=== PATIENT | female | born 1965 | race Caucasian/White ===

== ENCOUNTER 2018-07-05 03:49 | Emergency (ER) | payer OTHER, SELFPAY ==
--- NOTE | 2018-07-05 03:55 | ED_ITS ---
HPI - General Adult General Chief complaint: Eye Problems Stated complaint: woke up with blurred vision in left eye Time Seen by Provider: 07/05/18 03:55 Source: patient Mode of arrival: ambulatory Limitations: no limitations History of Present Illness HPI narrative: Patient is an otherwise healthy 52-year-old female here for evaluation of blurry vision in her left eye. She states that she woke from sleep approximately 1 hour prior to arrival here in the emergency department when she noticed that her left eye was blurry. She just thought that it was blurry because she just woke up. This time we blurry vision did not change. She denied any other associated symptoms to include headache, pain in the eye, denies any trauma. No ringing in the ears. She states she waited approximately 20 minutes without any improvement. She called the nurse hotline and told her to come into the emergency department. She states that since she called the nursing department the symptoms have improved. She states that she now can see at distance without any changes in her vision. She states that the vision is now still blurry with close vision. Related Data Allergies Allergy/AdvReac Type Severity Reaction Status Date / Time Amoxicillin Allergy Unknown DENIES Uncoded 06/27/17 11:54 ALLERGY SULFA (sulfonamide) Allergy Unknown Uncoded 06/27/17 11:54 Review of Systems Constitutional Denies fatigue, Denies frequent falls and Denies headache(s) Eyes Reports blurry vision, Reports change in vision, Denies diplopia, Denies floaters, Denies irritation, Denies itchy eyes, Denies loss of vision, Denies eye pain, Denies seeing flashes, Denies photophobia and Denies tunnel vision ENT Ears, Nose, Mouth, and Throat: Denies vertigo, Denies dizziness, Denies headache(s), Denies disequilibrium, Denies tinnitus, Denies sore throat and Denies throat swelling Cardiovascular Denies chest pain and Denies dyspnea Respiratory Denies dyspnea Gastrointestinal Gastrointestinal: Denies abdominal pain Musculoskeletal Denies myalgias, Denies arthralgias, Denies numbness and Denies tingling Integumentary/Breasts Denies rash Neurologic Denies abnormal speech, Denies behavioral changes, Denies confusion, Denies vertigo, Denies dizziness, Denies frequent falls, Denies headache(s), Denies focal weakness, Denies loss of vision, Denies numbness, Denies tingling, Denies paresthesias and Denies disequilibrium Psychiatric Denies behavioral changes and Denies confusion Endocrine Denies fatigue Hematologic/Lymphatic Denies easy bleeding and Denies easy bruising Allergic/Immunologic Denies itchy eyes and Denies throat swelling [facility] Medical History Healthy adult (Acute) Social History Smoking Status: Never smoker Social History Smoking Status: Never smoker Exam Initial Vital Signs Initial Vital Signs: Vital Signs Temperature 97.9 F 07/05/18 03:57 Pulse Rate 108 H 07/05/18 03:57 Respiratory Rate 20 07/05/18 03:57 Blood Pressure 206/98 H 07/05/18 03:57 Pulse Oximetry 97 07/05/18 03:57 Const General: cooperative, comfortable, well developed, well groomed and No acute distress Orientation: alert, awake and oriented x3 HENMT Head: normal to inspection and normocephalic Ears: hearing grossly normal bilaterally Nose: external nose normal Face and sinus: normal facial exam Mouth: oral mucosae normal Eyes Alignment and Position: alignment normal Eyelids: eyelids normal Conjunctivae: conjunctivae normal Sclera: sclerae normal Pupils: PERRL EOM: EOM intact bilaterally Direct ophthalmoscopy: normal light reflex, photophobia present and photophobia not present Resp Effort & Inspection: normal respiratory effort Auscultation: clear to auscultation bilaterally Cardio Rate: regular rate Rhythm: regular rhythm Pulses: radial pulses present Skin Lesions: no lesions Rashes: no rashes Neuro General: alert, awake and oriented x3 Cranial Nerves: CN's II-XI intact bilaterally Cognition: normal cognition Speech: speech normal Gait: normal gait Extrem General: normal to inspection and capillary refill normal Psych Appearance: grossly normal and well kempt Course Orders Ordered: ED Orders 07/05/18 04:17 CT head/brain wo con Stat Vital Signs - 8 hr 07/05/18 03:57 Temperature 97.9 F Pulse Rate 108 H Respiratory Rate 20 Blood Pressure 206/98 H Pulse Oximetry 97 Medical Decision Making Imaging Data CT scan - head: Radiologist's impression: No acute intracranial abnormality. Right maxillary sinus disease. MDM Narrative Medical decision making narrative: Interocular pressure right eye 18 interocular pressure left eye 20. She reported that her symptoms were painless and not a vision loss, was not double vision was not a graying of the vision. She described the symptoms as blurring of objects that she was looking at. She has no other associated symptoms. Her symptoms are improving from the onset. Was otherwise normal neurologic exam. Head CT was negative. denies any trauma. no hyphema. No concerns for corneal abrasion. No concerns for keratitis. Not having headache. no signs of conjunctivitis. Will hold on further workup for now. Informed the patient that she should call [facility] later today when they open to schedule follow-up visit. She is given return precautions. Both her and her expressed understanding and agreement with plan. Discharge Plan Departure Patient Disposition: Home Clinical Impression: Blurred vision, left eye Activity Restrictions/Additional Instructions: I recommend that you contact the ophthalmology department here at [facility] at [phone] when they open later today. Also contact your primary care doctor for a follow-up. Return to the emergency department for any new or worsening symptoms Referrals: Rachid Delcid ARNP [Primary Care Provider] -
[2018-07-05 03:57] VITALS: BP 206/98; PULSE 108; RESP 20; TEMP 36.6; O2SAT 97; BMI 31.0
--- NOTE | 2018-07-05 04:17 | DI.CT.S_ITS ---
PROCEDURE: CT HEAD/BRAIN WO CON INDICATIONS: Blurry vision left eye TECHNIQUE: Noncontrast 4.5 mm thick angled axial sections acquired from the foramen magnum to the vertex, with coronal and sagittal reformats. For radiation dose reduction, the following was used: automated exposure control, adjustment of mA and/or kV according to patient size. COMPARISON: None. FINDINGS: Image quality: Excellent. CSF spaces: Basal cisterns are patent. No extra-axial fluid collections. The ventricles are symmetric in size and shape. Brain: No intracranial bleeds or masses. There is cerebral volume loss for age, with resultant ventricular and sulcal prominence. There are periventricular and deep white matter chronic small vessel ischemic changes. There is intracranial internal carotid artery atherosclerosis. Skull and face: Calvarium and visualized facial bones appear intact, without suspicious lesions. Sinuses: Mild mucosal thickening noted in the right maxillary sinus. The mastoids are clear. IMPRESSION: No acute intracranial disease process. Dictated by: Nery Funes MD, PhD on 07/05/2018 at 8:50 Approved by: Nery Funes MD, PhD on 07/05/2018 at 8:52
[2018-07-05 05:07] VITALS: BP 160/80; PULSE 84; RESP 18; O2SAT 97
== END 2018-07-05 05:07 | disposition home or self-care (01) ==
PROVIDERS: Emergency Provider Emergency Medicine; Family Provider Registered Nurse; PCP Registered Nurse
DX: H53.8 Other visual disturbances (principal)
CPT/HCPCS: 70450; 99283; 99284

== ENCOUNTER 2020-12-21 00:11 | Inpatient (IN) | payer OTHER, SELFPAY ==
[2020-12-21] VITALS (11 sets, daily range): BP systolic 151–188; BP diastolic 82–109; PULSE 92–115; RESP 16–18; TEMP 35.7–36.6; O2SAT 93–100; BMI 31.3
[2020-12-21] MEDS: ONDANSETRON 4 MG/2 ML INJ IV (00:41)
[2020-12-21 01:10] LABS: Add Manual Diff / Slide Review NO; Basophils Absolute Auto 0 /uL (0-100); Basophils Percent Auto 0.3 % (0-2); Eosinophils Absolute Auto 100 /uL (0-450); Eosinophils Percent Auto 0.8 % (2-4); Hematocrit 40.4 % (36-46); Hemoglobin 13.8 g/dL (12.0-16.0); Lymphocytes Absolute Auto 2400 /uL (1100-4500); Lymphocytes Percent Auto 17.3 % (25-40); Mean Corpuscular HGB Conc 34.2 % (30-36); Mean Corpuscular Hemoglobin 31.7 PG (26-34); Mean Corpuscular Volume 92.5 fL (80-100); Monocytes Absolute Auto 900 /uL (0-900); Monocytes Percent Auto 6.4 % (3-14); Neutrophils Absolute Auto 10300 /uL (1500-7000); Neutrophils Percent Auto 75.2 % (50-75); Platelet Count 396 X10^3/uL (150-400); Red Blood Cell Count 4.36 X10^6/uL (4.0-5.2); Red Cell Distribution Width 12.7 % (11.6-14.8); White Blood Cell Count 13.7 X10^3/uL (4.5-11.0)
[2020-12-21 01:10] LABS: Alanine Aminotransferase 23 IU/L (<35); Albumin 4.7 g/dL (3.5-5.0); Albumin Globulin Ratio 1.5 (1.0-2.8); Alkaline Phosphatase 92 U/L (38-126); Aspartate Aminotransferase 26 IU/L (14-36); BUN Creatinine Ratio 25.8 (6-22); Bilirubin Total 0.3 mg/dL (0.2-1.3); Blood Urea Nitrogen 16 mg/dL (7-17); Calcium 9.4 mg/dL (8.4-10.2); Carbon Dioxide 32 mmol/L (22-32); Chloride 100 mmol/L (98-107); Estimated Glomerular Filt Rate > 60.0 mL/min (>60); Globulin 3.2 g/dL (1.7-4.1); Glucose 119 mg/dL (70-100); HEMOLYSIS < 15 (0-50); Potassium 4.2 mmol/L (3.4-5.1); Sodium 141 mmol/L (137-145); Total Protein 7.9 g/dL (6.3-8.2)
[2020-12-21 01:12] LABS: Bacteria Urine None Seen; Culture Indicated Urine Cult Not Indicated; RBC Urine 0-1/HPF (0-5/HPF); WBC Urine None Seen (0-5/HPF)
[2020-12-21] MEDS: KETOROLAC 30 MG/ML VIAL 15 MG IV (01:13)
--- NOTE | 2020-12-21 01:18 | ED_ITS ---
HPI - Abdominal Pain General Chief Complaint: Abdominal Pain Stated Complaint: nausea,vomiting stomach pain Time Seen by Provider: 12/21/20 00:50 Source: patient and family Mode of arrival: Ambulatory Limitations: no limitations History of Present Illness HPI narrative: This is a 55-year-old female comes in with complaint of fairly sudden onset of epigastric pain and to both sides and around her back. Patient states it came on acutely this evening after eating. She had nausea and vomiting. Patient has not had any fevers. She denies any chest pain, no shortness of breath. She has not had any diarrhea constipation, no black bloody stools. No vaginal discharge or bleeding. No dysuria, urgency or frequency. She did recently start Wellbutrin and gabapentin for mood as well as sciatica. She has had some low back discomfort but not higher back. Patient states that she has had a hysterectomy. She denies any other intra-abdominal surgeries. She denies any other daily medications. She denies tobacco, occasional alcohol every couple months, no illicit other than oral CBD. She is allergic to amoxic illin and sulfa. She has not had similar symptoms in the past. Related Data Home Medications Medication Instructions Recorded Confirmed bupropion HCl 100 mg tablet,12 hr 100 mg PO DAILY 12/21/20 12/21/20 sustained-release Previous Rx's Medication Instructions Recorded hydrocodone 5 mg-acetaminophen 325 1 tab PO Q8H PRN #10 tab 12/14/20 mg tablet gabapentin 300 mg capsule 300 mg PO BID PRN #20 cap 12/17/20 methocarbamol 500 mg tablet 500 mg PO BID PRN #10 tab 12/17/20 Allergies Allergy/AdvReac Type Severity Reaction Status Date / Time amoxicillin AdvReac Intermediate Nausea Verified 12/21/20 00:31 Sulfa (Sulfonamide AdvReac Intermediate Nausea Verified 12/21/20 00:31 Antibiotics) Review of Systems Review of Systems ROS Unobtainable: All systems reviewed & are unremarkable except as noted in HPI and below Patient History Medical History (Updated 12/21/20 @ 01:42 by Jagruti Holloway DO) Healthy adult Social History Smoking Status: Never smoker Smoking Status: Never smoker alcohol intake frequency: 0-2 drinks per day Substance Use Type: does not use Exam Narrative Exam Narrative: GENERAL: Alert and oriented x three, female in moderate distress. HEENT: Head normocephalic, atraumatic, EOMI, pupils reactive, face symmetric, moist mucous membranes NECK: Supple, full range of motion CARDIOVASCULAR: Regular rate and rhythm without murmurs, rubs or gallops. RESPIRATORY: Breath sounds equal bilaterally, no wheezes rales or rhonchi. ABDOMEN: Soft, mild bilateral upper quadrant tenderness left greater than right greatest at epigastric region. Normoactive bowel sounds all 4 quadrants. No guarding or rebound, rigidity, no mass, nondistended. No bruit or pulsatile mass. : No CVA tenderness EXTREMITIES: Normal range of motion, no clubbing or edema. Neurovascularly intact NEUROLOGICAL: Cranial nerves II through XII grossly intact. Moving all extremities SKIN: Warm, dry, no petechiae, no rashes or lesions. Initial Vital Signs Initial Vital Signs: Vital Signs Temperature 97.9 F 12/21/20 00:15 Pulse Rate 94 H 12/21/20 00:15 Respiratory Rate 18 12/21/20 00:15 Blood Pressure 172/90 H 12/21/20 00:15 Pulse Oximetry 98 12/21/20 00:15 Course Orders Ordered: ED Orders 12/21/20 00:25 Complete Blood Count AUTO DIFF Stat 12/21/20 00:32 Urine Microscopic Stat 12/21/20 00:46 Comprehensive Metabolic Panel Stat Lipase Stat 12/21/20 01:29 CT abdomen pelvis w con Stat 12/21/20 02:35 COVID19 - ADMIT ([employer] swab/PCR) Stat Acetaminophen (Acetaminophen 325 Mg Tablet) 650 mg PO Q6HR PRN PRN Reason: Fever/Mild Pain (1-3) Enoxaparin Sodium (Enoxaparin 40 Mg/0.4 Ml Syringe) 40 mg SUBCUT DAILY TOM Hydromorphone HCl (Hydromorphone 0.5 Mg Inj) 0.5 mg IV Q6H PRN PRN Reason: Pain, Moderate (4-6) Sodium Chloride (Normal Saline 0.9%) 1,000 mls @ 200 mls/hr IV CONT TOM Sodium Chloride (Normal Saline 0.9%) 1,000 mls @ 250 mls/hr IV CONT TOM Ondansetron HCl (Ondansetron 4 Mg/2 Ml Inj) 4 mg IV Q8HR PRN PRN Reason: Nausea And Vomiting Oxycodone HCl (Oxycodone Ir 5 Mg Tablet) 5 mg PO Q6HR PRN PRN Reason: Pain, Moderate (4-6) Discontinued Medications Sodium Chloride (Normal Saline 0.9%) 1,000 mls @ 1,000 mls/hr IV BOLUS ONE Stop: 12/21/20 02:28 Last Infusion: 12/21/20 01:48 Dose: 1,000 mls/hr Documented by: Infusion: 12/21/20 01:34 Dose: 0 mls/hr Documented by: Admin: 12/21/20 01:34 Dose: 1,000 mls/hr Documented by: RADHA Ketorolac Tromethamine (Ketorolac 30 Mg/Ml Vial) 15 mg IV NOW ONE Stop: 12/21/20 01:01 Last Admin: 12/21/20 01:13 Dose: 15 mg Documented by: SAWYER Morphine Sulfate (Morphine 4 Mg/Ml Inj) 4 mg IV NOW ONE Stop: 12/21/20 01:48 Last Admin: 12/21/20 01:51 Dose: 4 mg Documented by: RADHA Ondansetron HCl (Ondansetron 4 Mg/2 Ml Inj) 4 mg IV NOW ONE Stop: 12/21/20 00:37 Last Admin: 12/21/20 00:41 Dose: 4 mg Documented by: RADHA Reevaluation(s) Reevaluation #1: Patient had miminal improvement after Toradol She felt much better after Morphine. All labs and imaging discussed. Consultations Consultation #1: Dr. Candelaria accepts for admission for pancreatitis, with no other acute CT findings and only elevated lipase. Covid swab is pending. Plan for fluids and pain control at this time. Dr. Candelaria did see the patient in the department. Time: 03:24 Vital Signs Vital signs: Vital Signs - 8 hr 12/21/20 00:15 12/21/20 02:33 Temperature 97.9 F Pulse Rate 94 H 92 H Respiratory Rate 18 18 Blood Pressure 172/90 H Pulse Oximetry 98 96 MDM - Abdominal Pain Lab Data Result diagrams: 12/21/20 00:25 12/21/20 00:46 Labs: Lab Results 10/05/21 10/05/21 10/05/21 Range/Units 00:25 00:32 00:46 WBC 13.7 H (4.5-11.0) X10^3/uL RBC 4.36 (4.0-5.2) X10^6/uL Hgb 13.8 (12.0-16.0) g/dL Hct 40.4 (36-46) % MCV 92.5 (80-100) fL MCH 31.7 (26-34) PG MCHC 34.2 (30-36) % RDW 12.7 (11.6-14.8) % Plt Count 396 (150-400) X10^3/uL Neut % (Auto) 75.2 H (50-75) % Lymph % (Auto) 17.3 L (25-40) % [place] % (Auto) 6.4 (3-14) % Eos % (Auto) 0.8 L (2-4) % Baso % (Auto) 0.3 (0-2) % Neut # (Auto) 26970 H (6397-6409) /uL Lymph # (Auto) 2400 (4769-8725) /uL [place] # (Auto) 900 (0-900) /uL Eos # (Auto) 100 (0-450) /uL Baso # (Auto) 0 (0-100) /uL Sodium 141 (137-145) mmol/L Potassium 4.2 (3.4-5.1) mmol/L Chloride 100 (98-107) mmol/L Carbon Dioxide 32 (22-32) mmol/L BUN 16 (7-17) mg/dL Creatinine 0.62 (0.52-1.04) mg/dL Estimated GFR > 60.0 (>60) mL/min BUN/Creatinine Ratio 25.8 H (6-22) Glucose 119 H (70-100) mg/dL Calcium 9.4 (8.4-10.2) mg/dL Total Bilirubin 0.3 (0.2-1.3) mg/dL AST 26 (14-36) IU/L ALT 23 (<35) IU/L Alkaline Phosphatase 92 (38-126) U/L Total Protein 7.9 (6.3-8.2) g/dL Albumin 4.7 (3.5-5.0) g/dL Globulin 3.2 (1.7-4.1) g/dL Albumin/Globulin Ratio 1.5 (1.0-2.8) Lipase 31491 H (23-300) U/L Urine RBC 0-1/hpf (0-5/HPF) Urine WBC None seen (0-5/HPF) Urine Bacteria None seen (None) Ur Culture Indicated? Cult not indicated SARS-CoV-2 (PCR) (Negative) 12/21/20 Range/Units 02:35 WBC (4.5-11.0) X10^3/uL RBC (4.0-5.2) X10^6/uL Hgb (12.0-16.0) g/dL Hct (36-46) % MCV (80-100) fL MCH (26-34) PG MCHC (30-36) % RDW (11.6-14.8) % Plt Count (150-400) X10^3/uL Neut % (Auto) (50-75) % Lymph % (Auto) (25-40) % [place] % (Auto) (3-14) % Eos % (Auto) (2-4) % Baso % (Auto) (0-2) % Neut # (Auto) (2065-3513) /uL Lymph # (Auto) (9764-1394) /uL [place] # (Auto) (0-900) /uL Eos # (Auto) (0-450) /uL Baso # (Auto) (0-100) /uL Sodium (137-145) mmol/L Potassium (3.4-5.1) mmol/L Chloride (98-107) mmol/L Carbon Dioxide (22-32) mmol/L BUN (7-17) mg/dL Creatinine (0.52-1.04) mg/dL Estimated GFR (>60) mL/min BUN/Creatinine Ratio (6-22) Glucose (70-100) mg/dL Calcium (8.4-10.2) mg/dL Total Bilirubin (0.2-1.3) mg/dL AST (14-36) IU/L ALT (<35) IU/L Alkaline Phosphatase (38-126) U/L Total Protein (6.3-8.2) g/dL Albumin (3.5-5.0) g/dL Globulin (1.7-4.1) g/dL Albumin/Globulin Ratio (1.0-2.8) Lipase (23-300) U/L Urine RBC (0-5/HPF) Urine WBC (0-5/HPF) Urine Bacteria (None) Ur Culture Indicated? SARS-CoV-2 (PCR) Negative (Negative) Point of care testing: Urine Dip Bedside Urine Glucose Negative Bedside Urine Bilirubin - Negative Bedside Urine Ketone - Negative Urine Specific [place] 1.020 Bedside Urine Occult Blood +/- Bedside Urine pH 6.0 Bedside Urine Protein +/- 15 Bedside Urine Urobilinogen - Negative Bedside Urine Nitrite - Negative Bedside Urine Leukocytes - Negative Esterase Imaging Data CT scan - abdomen/pelvis: Radiologist's Impression: [address] [address] [address] Scan Report Signed Patient: Gracie Hawthorne MR#: [id number] : 1965 Acct:[id number] Age/Sex: 55 / F Date of Service: 12/21/20 Loc: ED Accession Number: [id number] ?? Procedure: CT abdomen pelvis w con Ordering Provider: Jagruti Holloway D.O. PROCEDURE:? CT ABDOMEN PELVIS W CON ? INDICATIONS:? epigastric pain radiates to back ? TECHNIQUE:? After the administration of IV contrast, axial sections were acquired from the lung bases to the pubic symphysis.? Coronal and sagittal reformats were performed.? For radiation dose reduction, the following was used:? automated exposure control, adjustment of mA and/or kV according to patient size. ? COMPARISON:? None. ? FINDINGS:? Image quality:? Excellent.? ? Lung bases:? Unremarkable.? ? Heart:? No significant findings. ? ? ABDOMEN: Liver:? Unremarkable.? ? Gallbladder:? No calcified gallstones.? Not distended.? ? Biliary ducts:? Not distended. Pancreas:? There is inflammatory change in free fluid surrounding the pancreas.? No pancreatic necrosis is identified.? No loculated fluid collection at this time.? No pancreatic ductal dilatation seen. Spleen:? No splenomegaly.? ? Adrenal Glands:? Unremarkable.? ? Kidneys and Ureters:? No hydronephrosis.? Tiny cortical hypodensities.? ? ? Stomach and Bowel:? Stomach, small bowel loops, and colon are unremarkable.? Tiny duodenal diverticulum.? Normal appendix. Peritoneum:? No abnormal intraperitoneal fluid.? No free air.? ? Ventral Wall: ? No hernia.? Abdominal Nodes:? No retroperitoneal or mesenteric adenopathy by size criteria.? Vessels:? Aorta and inferior vena cava are normal in size.? Mild calcified plaque.? No filling defect in the portal vein SMV.? ? PELVIS: Pelvic Organs:? Small ovarian cysts bilaterally.? Uterus is absent or severely atrophic.? ? Bladder:? Unremarkable.? ? Pelvic Nodes: No enlarged lymph nodes.? Miscellaneous: No inguinal hernias are seen. ? ? ? Bones:? Moderate DDD at L5-S1. ? ? IMPRESSION:? 1. Inflammatory change and mild amount of free fluid surrounding the pancreas.? This is most consistent with interstitial edematous pancreatitis, moderate severity.? No pancreatic necrosis identified at this time.? -Recommend follow-up CT pancreas in a few weeks. ? 2. No calcified gallstones. ? 3. No small bowel obstruction. ? 4. Small bilateral ovarian cysts.? Dictated by: Xavier Alonzo M.D. on 12/21/2020 at 1:46 ? ? Approved by: Xavier Alnozo M.D. on 12/21/2020 at 1:54?? MDM Narrative Medical decision making narrative: This is a 55-year-old female who comes to the emergency department with fairly sudden onset of nausea vomiting epigastric pain radiating towards her back. The patient labs show lipase in the 52,000 range. Patient drinks minimal alcohol according her and her . No other known exacerbating factors. Patient's CT does not show any obvious biliary ductal dilation or changes beyond edematous pancreatitis. She is much improved after some Zofran, fluids and pain medication. Spoke with her hospitalist who accepts for admission Discharge Plan Departure Patient Disposition: Admitted As Inpatient Clinical Impression: Acute pancreatitis Admit Date/Time: 12/21/20 03:29 Admit Provider: Ravindra Candelaria
--- NOTE | 2020-12-21 01:29 | DI.CT.S_ITS ---
PROCEDURE: CT ABDOMEN PELVIS W CON INDICATIONS: epigastric pain radiates to back TECHNIQUE: After the administration of IV contrast, axial sections were acquired from the lung bases to the pubic symphysis. Coronal and sagittal reformats were performed. For radiation dose reduction, the following was used: automated exposure control, adjustment of mA and/or kV according to patient size. COMPARISON: None. FINDINGS: Image quality: Excellent. Lung bases: Unremarkable. Heart: No significant findings. ABDOMEN: Liver: Unremarkable. Gallbladder: No calcified gallstones. Not distended. Biliary ducts: Not distended. Pancreas: There is inflammatory change in free fluid surrounding the pancreas. No pancreatic necrosis is identified. No loculated fluid collection at this time. No pancreatic ductal dilatation seen. Spleen: No splenomegaly. Adrenal Glands: Unremarkable. Kidneys and Ureters: No hydronephrosis. Tiny cortical hypodensities. Stomach and Bowel: Stomach, small bowel loops, and colon are unremarkable. Tiny duodenal diverticulum. Normal appendix. Peritoneum: No abnormal intraperitoneal fluid. No free air. Ventral Wall: No hernia. Abdominal Nodes: No retroperitoneal or mesenteric adenopathy by size criteria. Vessels: Aorta and inferior vena cava are normal in size. Mild calcified plaque. No filling defect in the portal vein SMV. PELVIS: Pelvic Organs: Small ovarian cysts bilaterally. Uterus is absent or severely atrophic. Bladder: Unremarkable. Pelvic Nodes: No enlarged lymph nodes. Miscellaneous: No inguinal hernias are seen. Bones: Moderate DDD at L5-S1. IMPRESSION: 1. Inflammatory change and mild amount of free fluid surrounding the pancreas. This is most consistent with interstitial edematous pancreatitis, moderate severity. No pancreatic necrosis identified at this time. -Recommend follow-up CT pancreas in a few weeks. 2. No calcified gallstones. 3. No small bowel obstruction. 4. Small bilateral ovarian cysts. Dictated by: Xavier Alonzo M.D. on 12/21/2020 at 1:46 Approved by: Xavier Alonzo M.D. on 12/21/2020 at 1:54
[2020-12-21] MEDS: SODIUM CHLORIDE 0.9% 1,000 ML 1000 ML IV (01:34)
[2020-12-21 01:35] LABS: Lipase 52166 U/L (23-300)
[2020-12-21] MEDS: MORPHINE 4 MG/ML INJ IV (01:51)
[2020-12-21 03:50] LABS: COVID19 - ADMIT (NP swab/PCR) Negative (Negative)
--- NOTE | 2020-12-21 04:11 | PM.HP.1 ---
History of Present Illness History of Present Illness Date Patient Seen: 12/21/20 Time Patient Seen: 04:00 Chief complaint: nausea,vomiting stomach pain Narrative: Ms. Hawthorne is a 55W with PMH anxiety and back pain who comes in with abdominal pain. She says she had been in her normal state of health until tonight around 10pm. She had pain that started this evening after eating. She had nausea and vomiting. She did not have diarrhea. Her pain was epigastric and radiated to her back. She had no dysuria, no chest pain, no shortness of breath. She does not drink alcohol more than once every few months. She has had back pain recently and has tried CBD orally, bupropion, gabapentin, prednisone, methocarbamol. She has taken tylenol and nsaids more regularly due to her back pain. She takes vitamins. She has had a hysterectomy, still has her gallbladder. She has had high cholesterol in the past but has not had it checked recently. She has not had trauma to her abdomen. In the ED workup was done, she was noted to be afebrile, heart rate in the 90s, blood pressure elevated. Labs notable for WBC 13.7, hgb 13.8, creatinine 0.62, lipase 28545. LFTs ok. Urinalysis no evidence of infection. CT abdomen showed inflammatory changes and free fluid around the pancreas. She was given pain medications and IV fluids and admitted for further treatment. Family history: patient does not know, is adopted Patient History Medical History Healthy adult Family & Social History Safety & Behavioral: Feels Safe in Current Yes Environment Tobacco & Substance use: Smoking Status Never smoker alcohol intake frequency 0-2 drinks per day Substance Use Type does not use Meds Home Medications and Allergies Home Medications Medication Instructions Recorded Confirmed Type hydrocodone 5 mg-acetaminophen 325 1 tab PO Q8H PRN #10 tab 12/14/20 12/21/20 Rx mg tablet gabapentin 300 mg capsule 300 mg PO BID PRN #20 cap 12/17/20 12/21/20 Rx methocarbamol 500 mg tablet 500 mg PO BID PRN #10 tab 12/17/20 12/21/20 Rx bupropion HCl 100 mg tablet,12 hr 100 mg PO DAILY 12/21/20 12/21/20 History sustained-release Allergies Allergy/AdvReac Type Severity Reaction Status Date / Time amoxicillin AdvReac Intermediate Nausea Verified 12/21/20 00:31 Sulfa (Sulfonamide AdvReac Intermediate Nausea Verified 12/21/20 00:31 Antibiotics) Review of Systems Review of Systems Narrative: 14 systems reviewed and negative aside from what is noted in HPI Exam Vital Signs (past 8 hours): - 12/21/20 00:15 12/21/20 02:33 12/21/20 04:10 Temperature 97.9 F Pulse Rate 94 H 92 H 94 H Respiratory Rate 18 18 Blood Pressure 172/90 H 188/100 H Pulse Oximetry 98 96 98 Oxygen Delivery Method Room Air Narrative Exam Narrative: GEN: no acute distress HEENT: moist mucous membranes, PERRL NECK: trachea midline, no JVD CV: regular rate and rhythm with no murmurs PULM: clear bilaterally, no wheezes, rhonchi, rales ABD: soft, tender epigastric, no rebound/guarding, normal bowel sounds, no organomegaly EXT: warm and well perfused, with no edema NEURO: awake alert oriented, no focal deficits PSYCH: pleasant, cooperative Objective Labs Result Diagrams: 12/21/20 00:25 12/21/20 00:46 Labs: Laboratory Results - last 24 hr 12/21/20 12/21/20 12/21/20 00:25 00:32 00:46 WBC 13.7 H RBC 4.36 Hgb 13.8 Hct 40.4 MCV 92.5 MCH 31.7 MCHC 34.2 RDW 12.7 Plt Count 396 Neut % (Auto) 75.2 H Lymph % (Auto) 17.3 L [place] % (Auto) 6.4 Eos % (Auto) 0.8 L Baso % (Auto) 0.3 Neut # (Auto) 15622 H Lymph # (Auto) 2400 [place] # (Auto) 900 Eos # (Auto) 100 Baso # (Auto) 0 Sodium 141 Potassium 4.2 Chloride 100 Carbon Dioxide 32 BUN 16 Creatinine 0.62 Estimated GFR > 60.0 BUN/Creatinine Ratio 25.8 H Glucose 119 H Calcium 9.4 Total Bilirubin 0.3 AST 26 ALT 23 Alkaline Phosphatase 92 Total Protein 7.9 Albumin 4.7 Globulin 3.2 Albumin/Globulin Ratio 1.5 Lipase 99882 H Urine RBC 0-1/hpf Urine WBC None seen Urine Bacteria None seen Ur Culture Indicated? Cult not indicated SARS-CoV-2 (PCR) 12/21/20 02:35 WBC RBC Hgb Hct MCV MCH MCHC RDW Plt Count Neut % (Auto) Lymph % (Auto) [place] % (Auto) Eos % (Auto) Baso % (Auto) Neut # (Auto) Lymph # (Auto) [place] # (Auto) Eos # (Auto) Baso # (Auto) Sodium Potassium Chloride Carbon Dioxide BUN Creatinine Estimated GFR BUN/Creatinine Ratio Glucose Calcium Total Bilirubin AST ALT Alkaline Phosphatase Total Protein Albumin Globulin Albumin/Globulin Ratio Lipase Urine RBC Urine WBC Urine Bacteria Ur Culture Indicated? SARS-CoV-2 (PCR) Negative Assessment & Plan Assessment & Plan narrative: Ms. Hawthorne is a 55W who presents with acute epigastric pain found to have acute pancreatitis. 1. Acute pancreatitis -lipase on admission 52,666 -CT abdomen shows inflammatory changes around pancreas -electrolytes normal, normal renal function -continue IV fluids at 250cc/hr -repeat electrolytes in AM -etiology unclear - no evidence of gallstones, no significant EtOH, possibly a medication affect but none of her medications are common cause of pancreatitis, check triglycerides -keep NPO for now and plan to advance to clears in AM CODE: Full Proxy: Spouse, Gigi Hawthorne DVT ppx: Lovenox 40u sc Dispo: patient is likely to be here greater than 2 midnights given severity of pain with acute pancreatitis I have utilized all available immediate resources to obtain, update, or review the patient's current medications. Time Spent With Patient Critical Care time: I spent a total of [] minutes of critical care time on this patient's care today; this time is exclusive of procedural time. Quality MIPS - Admit I confirm the patient?s Advance Care Plan is present, Code status is documented, Surrogate decision maker is in patient?s record [If Yes, STOP here]: Yes
[2020-12-21] MEDS: SODIUM CHLORIDE 0.9% 1,000 ML 250 ML IV ×2 (04:34→08:10)
[2020-12-21] MEDS: OXYCODONE IR 5 MG TABLET PO ×5 (04:36→23:14)
--- NOTE | 2020-12-21 08:44 | DI.US.S_ITS ---
PROCEDURE: US ABDOMEN LIMITED INDICATIONS: PANCREATITIS TECHNIQUE: Real-time scanning was performed of the right upper quadrant abdominal structures, image documentation. COMPARISON: [facility], CT, CT ABDOMEN PELVIS W CON, 12/21/2020, 1:36. FINDINGS: Liver: Normal size and appearance of the liver. Gallbladder: Normally distended gallbladder without wall thickening or pericholecystic fluid. The tilting saw operator reports a negative sonographic Benson's sign. There is a mobile gallstone measuring approximately 1.5 centimeters. Biliary ducts: No intrahepatic or extrahepatic biliary ductal dilatation. No shadowing gallstone within the biliary ducts is identified. Spleen: Spleen is normal in size and homogeneous in echotexture. Pancreas: There is free fluid adjacent to the pancreas as seen on recent CT. No pancreatic ductal dilatation. Much of the pancreas is not well evaluated due to obscuration by overlying bowel gas. IMPRESSION: Findings of pancreatitis is seen on recent CT. Cholelithiasis without findings of cholecystitis. Dictated by: Migue Ceron M.D. on 12/21/2020 at 11:14 Approved by: Migue Ceron M.D. on 12/21/2020 at 11:16
[2020-12-21] MEDS: ENOXAPARIN 40 MG/0.4 ML SYRINGE SUBCUT (10:30)
[2020-12-21 11:57] LABS: Magnesium 2.1 mg/dL (1.6-2.3); Triglycerides 242 mg/dL (35-150)
[2020-12-21] MEDS: SODIUM CHLORIDE 0.9% 1,000 ML 200 ML IV (12:29)
--- NOTE | 2020-12-21 13:02 | CM.DANOTE ---
DCP: Case received, EMR reviewed and met with patient. Introduced self and role. Was able to obtain information from patient regarding her baseline activity status prior to hospitalization. DCP assessment completed with information currently available. Patient is a 55 year old female who admitted early this morning to the care of the hospitalist team. PCP: She is unsure of her name. Payer: confirmed: [facility]. Patient came to the hospital via private vehicle secondary to having epigastric pain, as well as nausea and vomiting. Patient was diagnosed with acute pancreatitis. Paient drinks minimal alcohol. Met with patient in her room. She is alert and oriented, pleasant. She resides here in [place] with her spouse, Gigi. She has 4 grown children, the youngest is 19. She is independent at her baseline. P: DCP to continue to follow. Patient should be able to go home when she is deemed medically stable. Ana Laura Brody RN/Machine Maintenance Servicer Discharge Planning/Care Management Advanced directive, confirm from FAMILY Start: 12/21/20 04:58 Freq: Q24H Status: Complete Protocol: Document 12/21/20 04:58 CM (Rec: 12/21/20 04:58 CM [id number]) Advance Directive, confirm on record Time 04:58 Person contacted Pt Copy received No Copy received No Advanced directive available on record No CM Discharge Assessment Start: 12/21/20 12:36 Freq: Status: Active Protocol: Document 12/21/20 12:38 VM (Rec: 12/21/20 12:48 VM [id number]) Discharge Planning Assessment Assigned Mechanical Engineer Ana Laura Brody RN/Machine Maintenance Servicer Advance Directives? No Advance Directives on File No History Provided By Patient,Medical Record Prior Living Arrangements House Household Members spouse Type of transporation used prior to Drives own vehicle admit Independent with ADL's Yes Is patient alert and oriented? Yes Caregiver for Another No Barriers to Discharge No Discharge Plan Home Transportation Arrangement Spouse Referrals Initiated None needed Whiteboard Updated in Patient Room with Yes name and ext. # of Mechanical Engineer Review Status In Process Next Review Type Continued Stay Review
--- NOTE | 2020-12-21 13:16 | PC.NURSE ---
Pt is A and O x 4, VSS. Rates pain 7/10 gets adequate relief from 5 mg oxycodone. Tolerating clear liquid diet. LS clear, HRR. BM yesterday.
[2020-12-21] MEDS: buPROPion SR 100 MG TAB PO (15:28)
[2020-12-21] MEDS: GABAPENTIN 300 MG CAPSULE PO ×2 (15:28→20:27)
--- NOTE | 2020-12-21 16:08 | PM.PN.1 ---
Subjective Subjective Date Patient Seen: 12/21/20 Interval history: Patient is 55-year-old female admitted with acute pancreatitis. She reports moderate abdominal pain adequately controlled. Poor appetite but interested in trying clears. Blood pressure has been persistently quite elevated. She is also having some exacerbation chronic sciatica pain in the left leg. Exam Vital Signs (past 8 hours): - 12/21/20 09:00 12/21/20 11:00 12/21/20 15:21 Temperature 97.4 F L 97.3 F L 96.3 F L Pulse Rate 104 H 100 H 107 H Respiratory Rate 18 18 16 Blood Pressure 157/96 H 163/104 H 178/107 H Pulse Oximetry 97 97 93 Oxygen Delivery Method Room Air Oxygen Flow Rate 0 Narrative Exam Narrative: General: Alert and cooperative appearing comfortable Lungs: Clear to auscultation Heart: Regular rhythm Abdomen: Tender in epigastric Extremities: No edema Objective Labs Result Diagrams: 12/21/20 00:25 12/21/20 00:46 Labs: Laboratory Results - last 24 hr 12/21/20 12/21/20 12/21/20 00:25 00:32 00:46 WBC 13.7 H RBC 4.36 Hgb 13.8 Hct 40.4 MCV 92.5 MCH 31.7 MCHC 34.2 RDW 12.7 Plt Count 396 Neut % (Auto) 75.2 H Lymph % (Auto) 17.3 L [place] % (Auto) 6.4 Eos % (Auto) 0.8 L Baso % (Auto) 0.3 Neut # (Auto) 06958 H Lymph # (Auto) 2400 [place] # (Auto) 900 Eos # (Auto) 100 Baso # (Auto) 0 Sodium 141 Potassium 4.2 Chloride 100 Carbon Dioxide 32 BUN 16 Creatinine 0.62 Estimated GFR > 60.0 BUN/Creatinine Ratio 25.8 H Glucose 119 H Calcium 9.4 Magnesium Total Bilirubin 0.3 AST 26 ALT 23 Alkaline Phosphatase 92 Total Protein 7.9 Albumin 4.7 Globulin 3.2 Albumin/Globulin Ratio 1.5 Triglycerides Lipase 95309 H Urine RBC 0-1/hpf Urine WBC None seen Urine Bacteria None seen Ur Culture Indicated? Cult not indicated SARS-CoV-2 (PCR) 12/21/20 12/21/20 00:46 02:35 WBC RBC Hgb Hct MCV MCH MCHC RDW Plt Count Neut % (Auto) Lymph % (Auto) [place] % (Auto) Eos % (Auto) Baso % (Auto) Neut # (Auto) Lymph # (Auto) [place] # (Auto) Eos # (Auto) Baso # (Auto) Sodium Potassium Chloride Carbon Dioxide BUN Creatinine Estimated GFR BUN/Creatinine Ratio Glucose Calcium Magnesium 2.1 Total Bilirubin AST ALT Alkaline Phosphatase Total Protein Albumin Globulin Albumin/Globulin Ratio Triglycerides 242 H Lipase Urine RBC Urine WBC Urine Bacteria Ur Culture Indicated? SARS-CoV-2 (PCR) Negative [facility] Medical History Healthy adult Social History household members: spouse Smoking Status: Never smoker Assessment & Plan Assessment & Plan narrative: 1. Acute pancreatitis, unclear etiology -patient does not use alcohol -lipase on admission 52,666, WBC 13.7, renal function normal, triglycerides minimally high -CT abdomen shows inflammatory changes around pancreas -US shows 1.5 cm stone in gallbladder but otherwise normal -continue IV fluids, pain management -clear liquid diet as tolerated -discuss with surgery regarding possibility of gallstone causing pancreatitis 2. Hypertension -persistently elevated blood pressures at least moderately elevated -start losartan 50 mg q.d. -check TSH 3. Sciatica left leg, chronic -restarted patient's gabapentin and methocarbamol 4. History of depression -restarted patient's bupropion Time Spent With Patient Critical Care time: I spent a total of [] minutes of critical care time on this patient's care today; this time is exclusive of procedural time. Quality VTE Deep Vein Thrombosis/Pulmonary Embolism Present on Admission: No
[2020-12-21] MEDS: LOSARTAN 50 MG TABLET PO (17:22)
[2020-12-21] MEDS: SODIUM CHLORIDE 0.9% 1,000 ML 150 ML IV (17:26)
--- NOTE | 2020-12-21 20:47 | PM.CN ---
History of Present Illness Consult details Chief complaint: nausea,vomiting stomach pain Reason for consult: Pancreatitis Narrative: The patient is a woman who developed severe mid abdominal pain and vomiting yesterday evening. Pain radiated into her back. She has never had pain like this before. Pain was sharp as well as a dull component. She is feeling somewhat better with pain medication but when it subsides her pain does return. No black or bloody bowel movements. No hematemesis. No history of jaundice. Meds Home Medications and Allergies Home Medications Medication Instructions Recorded Confirmed Type hydrocodone 5 mg-acetaminophen 325 1 tab PO Q8H PRN #10 tab 12/14/20 12/21/20 Rx mg tablet gabapentin 300 mg capsule 300 mg PO BID PRN #20 cap 12/17/20 12/21/20 Rx methocarbamol 500 mg tablet 500 mg PO BID PRN #10 tab 12/17/20 12/21/20 Rx bupropion HCl 100 mg tablet,12 hr 100 mg PO DAILY 12/21/20 12/21/20 History sustained-release Allergies Allergy/AdvReac Type Severity Reaction Status Date / Time amoxicillin AdvReac Intermediate Diarrhea Verified 12/21/20 14:38 Sulfa (Sulfonamide AdvReac Intermediate Nausea Verified 12/21/20 00:31 Antibiotics) Review of Systems Review of Systems Narrative: Patient denies visual difficulties double vision. No cough cold or asthma. No difficulty swallowing. No tooth aches or earaches. No cough cold or asthma. She has had 1 of the 2 necessary vaccinations for COVID. She received a Pfizer vaccination and was due to have a repeat today. Patient denies black or bloody bowel movements. No dysuria or hematuria. No seizures or blackouts. No anxiety but she was recently started on medication for depression. No breast masses. No discharge from her breasts. She has not had a colonoscopy. Exam Vital Signs (past 8 hours): - 12/21/20 15:21 12/21/20 17:22 12/21/20 19:23 Temperature 96.3 F L 96.3 F L Pulse Rate 107 H 107 H 115 H Respiratory Rate 16 18 Blood Pressure 178/107 H 159/97 H 176/109 H Pulse Oximetry 93 100 Oxygen Delivery Method Room Air Oxygen Flow Rate 0 Narrative Exam Narrative: Cooperative pleasant woman in no apparent distress. She is moving about with ease. Eyes are nonicteric. Lungs are clear to auscultation no rales or rhonchi. Heart regular rate and rhythm without murmur gallop. Lungs percuss equally. No bruit in the neck. Abdomen is protuberant soft. She has tenderness across her upper abdomen mostly in the mid abdomen. She is a bit overweight so it is hard to tell that there may be a sense of fullness in the region. She is alert and oriented. Speech rate and content are appropriate. Affect is appropriate. Objective Imaging CT scan - abdomen: My impression: Fairly significant edema enlargement of the pancreas. Appears to be perfused. No visible gallstones. No thickening the gallbladder wall. US - abdomen: My impression: Ultrasound shows floating gallstones. No thickening of the wall. Common bile duct is 6.6 mm. Labs Result Diagrams: 12/21/20 00:25 12/21/20 00:46 Labs: Laboratory Results - last 24 hr 12/21/20 12/21/20 12/21/20 00:25 00:32 00:46 WBC 13.7 H RBC 4.36 Hgb 13.8 Hct 40.4 MCV 92.5 MCH 31.7 MCHC 34.2 RDW 12.7 Plt Count 396 Neut % (Auto) 75.2 H Lymph % (Auto) 17.3 L [place] % (Auto) 6.4 Eos % (Auto) 0.8 L Baso % (Auto) 0.3 Neut # (Auto) 03243 H Lymph # (Auto) 2400 [place] # (Auto) 900 Eos # (Auto) 100 Baso # (Auto) 0 Sodium 141 Potassium 4.2 Chloride 100 Carbon Dioxide 32 BUN 16 Creatinine 0.62 Estimated GFR > 60.0 BUN/Creatinine Ratio 25.8 H Glucose 119 H Calcium 9.4 Magnesium Total Bilirubin 0.3 AST 26 ALT 23 Alkaline Phosphatase 92 Total Protein 7.9 Albumin 4.7 Globulin 3.2 Albumin/Globulin Ratio 1.5 Triglycerides Lipase 20246 H Urine RBC 0-1/hpf Urine WBC None seen Urine Bacteria None seen Ur Culture Indicated? Cult not indicated SARS-CoV-2 (PCR) 12/21/20 12/21/20 00:46 02:35 WBC RBC Hgb Hct MCV MCH MCHC RDW Plt Count Neut % (Auto) Lymph % (Auto) [place] % (Auto) Eos % (Auto) Baso % (Auto) Neut # (Auto) Lymph # (Auto) [place] # (Auto) Eos # (Auto) Baso # (Auto) Sodium Potassium Chloride Carbon Dioxide BUN Creatinine Estimated GFR BUN/Creatinine Ratio Glucose Calcium Magnesium 2.1 Total Bilirubin AST ALT Alkaline Phosphatase Total Protein Albumin Globulin Albumin/Globulin Ratio Triglycerides 242 H Lipase Urine RBC Urine WBC Urine Bacteria Ur Culture Indicated? SARS-CoV-2 (PCR) Negative [facility] Medical History (Updated 12/21/20 @ 20:56 by Sharath Peralta MD) Healthy adult Surgical History (Updated 12/21/20 @ 20:51 by Sharath Peralta MD) History of hysterectomy Social History household members: spouse Tobacco & Substance Use Smoking Status: Never smoker Assessment & Plan Assessment and plan (1) Acute pancreatitis: Status: Acute (2) Cholelithiasis: Status: Acute Assessment & Plan narrative: Patient has physical exam and history and CT findings all consistent with acute pancreatitis. Her lipase is over 50,000. She has 2 potential causes of pancreatitis in her history. These are biliary in nature and elevated triglycerides. I suspect that most likely she passed the stone her gallbladder the caused her pancreatitis. Her CT scan is remarkable as is her lipase elevation. Clinically she has shown some improvement but it is far from steadily resolving. I would recommend continued fluids and when she is much improved would consider laparoscopic cholecystectomy prior to discharge. Things that might prevent that is if she had a decline in her condition or developed a large pseudocyst. Will continue to follow with you. Time Spent With Patient Critical Care time: I spent a total of [] minutes of critical care time on this patient's care today; this time is exclusive of procedural time.
[2020-12-21] MEDS: HYDROMORPHONE 0.5 MG INJ IV (20:57)
[2020-12-21] MEDS: METOPROLOL TARTRATE 5 MG/5 ML INJ IV (21:38)
[2020-12-22] MEDS: SODIUM CHLORIDE 0.9% 1,000 ML 150 ML IV ×2 (01:04→07:42)
[2020-12-22] MEDS: OXYCODONE IR 5 MG TABLET PO ×4 (03:33→19:22)
[2020-12-22 05:25] LABS: Add Manual Diff / Slide Review NO; Alanine Aminotransferase 16 IU/L (<35); Albumin 3.9 g/dL (3.5-5.0); Albumin Globulin Ratio 1.6 (1.0-2.8); Alkaline Phosphatase 65 U/L (38-126); Aspartate Aminotransferase 20 IU/L (14-36); BUN Creatinine Ratio 17.2 (6-22); Basophils Absolute Auto 0 /uL (0-100); Basophils Percent Auto 0.2 % (0-2); Bilirubin Total 0.4 mg/dL (0.2-1.3); Blood Urea Nitrogen 10 mg/dL (7-17); Calcium 8.7 mg/dL (8.4-10.2); Carbon Dioxide 30 mmol/L (22-32); Chloride 104 mmol/L (98-107); Eosinophils Absolute Auto 100 /uL (0-450); Eosinophils Percent Auto 0.7 % (2-4); Estimated Glomerular Filt Rate > 60.0 mL/min (>60); Globulin 2.4 g/dL (1.7-4.1); Glucose 112 mg/dL (70-100); HEMOLYSIS < 15 (0-50); Hematocrit 31.4 % (36-46); Hemoglobin 10.7 g/dL (12.0-16.0); Lymphocytes Absolute Auto 1100 /uL (1100-4500); Lymphocytes Percent Auto 15.5 % (25-40); Mean Corpuscular HGB Conc 34.2 % (30-36); Mean Corpuscular Hemoglobin 31.9 PG (26-34); Mean Corpuscular Volume 93.3 fL (80-100); Monocytes Absolute Auto 500 /uL (0-900); Monocytes Percent Auto 6.9 % (3-14); Neutrophils Absolute Auto 5300 /uL (1500-7000); Neutrophils Percent Auto 76.7 % (50-75); Platelet Count 263 X10^3/uL (150-400); Red Blood Cell Count 3.37 X10^6/uL (4.0-5.2); Red Cell Distribution Width 12.6 % (11.6-14.8); Sodium 140 mmol/L (137-145); Total Protein 6.3 g/dL (6.3-8.2); White Blood Cell Count 6.9 X10^3/uL (4.5-11.0)
[2020-12-22] MEDS: ACETAMINOPHEN 325 MG TABLET 650 MG PO ×2 (05:37→12:55)
[2020-12-22 08:10] VITALS: BP 150/103; PULSE 103; RESP 16; TEMP 36.1; O2SAT 94
[2020-12-22] MEDS: LOSARTAN 50 MG TABLET PO (08:58)
[2020-12-22] MEDS: GABAPENTIN 300 MG CAPSULE PO ×2 (08:59→20:33)
[2020-12-22] MEDS: ENOXAPARIN 40 MG/0.4 ML SYRINGE SUBCUT (08:59)
[2020-12-22] MEDS: buPROPion SR 100 MG TAB PO (10:08)
[2020-12-22 15:36] VITALS: BP 160/97; PULSE 102; RESP 18; TEMP 36.4; O2SAT 94
--- NOTE | 2020-12-22 16:20 | PM.PN.1 ---
Subjective Subjective Interval history: Patient is still having so abdominal pain. She thinks it may be a little better but she has been taking regular pain medication. The she has advanced her diet to a full liquid it seems to be tolerating it. Exam Vital Signs (past 8 hours): - 12/22/20 15:36 Temperature 97.5 F L Pulse Rate 102 H Respiratory Rate 18 Blood Pressure 160/97 H Pulse Oximetry 94 Oxygen Delivery Method Room Air Oxygen Flow Rate 0 Narrative Exam Narrative: Pleasant no apparent distress. Still with some fullness in her upper abdomen. Mild tenderness with deep palpation. Moving about without difficulty. Objective Labs Result Diagrams: 12/22/20 04:58 12/22/20 04:58 Labs: Laboratory Results - last 24 hr 12/22/20 12/22/20 12/22/20 04:58 04:58 04:58 WBC 6.9 RBC 3.37 L Hgb 10.7 L Hct 31.4 L MCV 93.3 MCH 31.9 MCHC 34.2 RDW 12.6 Plt Count 263 Neut % (Auto) 76.7 H Lymph % (Auto) 15.5 L [place] % (Auto) 6.9 Eos % (Auto) 0.7 L Baso % (Auto) 0.2 Neut # (Auto) 5300 Lymph # (Auto) 1100 [place] # (Auto) 500 Eos # (Auto) 100 Baso # (Auto) 0 Sodium 140 Potassium 4.0 Chloride 104 Carbon Dioxide 30 BUN 10 Creatinine 0.58 Estimated GFR > 60.0 BUN/Creatinine Ratio 17.2 Glucose 112 H Calcium 8.7 Total Bilirubin 0.4 AST 20 ALT 16 Alkaline Phosphatase 65 Total Protein 6.3 Albumin 3.9 Globulin 2.4 Albumin/Globulin Ratio 1.6 TSH 4.50 PFSH Medical History Healthy adult Surgical History History of hysterectomy Social History household members: spouse Smoking Status: Never smoker Assessment & Plan Assessment and plan (1) Cholelithiasis: Status: Acute (2) Acute pancreatitis: Status: Acute Assessment & Plan narrative: Hope to be able to operate on her sometime in day or 2. Will repeat some labs for the morning. Time Spent With Patient Critical Care time: I spent a total of [] minutes of critical care time on this patient's care today; this time is exclusive of procedural time. Quality VTE Deep Vein Thrombosis/Pulmonary Embolism Present on Admission: No
--- NOTE | 2020-12-22 17:54 | P.PN_ITS ---
Subjective Subjective Date Patient Seen: 12/22/20 Time Patient Seen: 08:00 Interval history: Today she is feeling better. Still has pain but is controlled well with medications. Tolerated clear liquid diet with no increased pain, no nausea or vomiting. No recent bowel movement. Exam Vital Signs (past 8 hours): - 12/22/20 15:36 Temperature 97.5 F L Pulse Rate 102 H Respiratory Rate 18 Blood Pressure 160/97 H Pulse Oximetry 94 Oxygen Delivery Method Room Air Oxygen Flow Rate 0 Narrative Exam Narrative: General:? Alert and cooperative appearing comfortable Lungs:? Clear to auscultation Heart:? Regular rhythm Abdomen:? Tender in epigastric Extremities: No edema Objective Labs Result Diagrams: 12/22/20 04:58 12/22/20 04:58 Labs: Laboratory Results - last 24 hr 12/22/20 12/22/20 12/22/20 04:58 04:58 04:58 WBC 6.9 RBC 3.37 L Hgb 10.7 L Hct 31.4 L MCV 93.3 MCH 31.9 MCHC 34.2 RDW 12.6 Plt Count 263 Neut % (Auto) 76.7 H Lymph % (Auto) 15.5 L [place] % (Auto) 6.9 Eos % (Auto) 0.7 L Baso % (Auto) 0.2 Neut # (Auto) 5300 Lymph # (Auto) 1100 [place] # (Auto) 500 Eos # (Auto) 100 Baso # (Auto) 0 Sodium 140 Potassium 4.0 Chloride 104 Carbon Dioxide 30 BUN 10 Creatinine 0.58 Estimated GFR > 60.0 BUN/Creatinine Ratio 17.2 Glucose 112 H Calcium 8.7 Total Bilirubin 0.4 AST 20 ALT 16 Alkaline Phosphatase 65 Total Protein 6.3 Albumin 3.9 Globulin 2.4 Albumin/Globulin Ratio 1.6 TSH 4.50 PFSH Medical History Healthy adult Surgical History History of hysterectomy Social History household members: spouse Smoking Status: Never smoker Assessment & Plan Assessment & Plan narrative: 1.? Acute pancreatitis, probable from gallstones -patient does not use alcohol -LFTs unremarkable -lipase on admission 52,666, WBC 13.7, renal function normal, triglycerides minimally high -CT abdomen shows inflammatory changes around pancreas -US shows 1.5 cm stone in gallbladder but otherwise normal -continue IV fluids, pain management -clear liquid diet tolerated well, advance to full liquids -discuss with surgery regarding possibility of gallstone causing pancreatitis, they recommend cholecystectomy likely this admission pending clinical course 2. Hypertension -persistently elevated blood pressures at least moderately elevated -start losartan 50 mg q.d. -check TSH 3. Sciatica left leg, chronic -restarted patient's gabapentin and methocarbamol 4.? History of depression -restarted patient's bupropion Time Spent With Patient Critical Care time: I spent a total of [] minutes of critical care time on this patient's care today; this time is exclusive of procedural time. Quality VTE Deep Vein Thrombosis/Pulmonary Embolism Present on Admission: No
[2020-12-22 19:41] VITALS: BP 149/86; PULSE 107; RESP 18; TEMP 36.1; O2SAT 98
[2020-12-23 01:08] VITALS: BP 147/78; PULSE 98; RESP 18; TEMP 36.6; O2SAT 96
[2020-12-23] MEDS: OXYCODONE IR 5 MG TABLET PO ×6 (01:08→23:25)
[2020-12-23] MEDS: ACETAMINOPHEN 325 MG TABLET 650 MG PO ×3 (01:09→16:11)
[2020-12-23 05:43] LABS: Add Manual Diff / Slide Review NO; Basophils Absolute Auto 0 /uL (0-100); Basophils Percent Auto 0.5 % (0-2); Eosinophils Absolute Auto 100 /uL (0-450); Eosinophils Percent Auto 2.2 % (2-4); Hematocrit 30.6 % (36-46); Hemoglobin 10.4 g/dL (12.0-16.0); Lymphocytes Absolute Auto 1200 /uL (1100-4500); Lymphocytes Percent Auto 25.2 % (25-40); Mean Corpuscular Hemoglobin 31.6 PG (26-34); Mean Corpuscular Volume 93.1 fL (80-100); Monocytes Absolute Auto 400 /uL (0-900); Monocytes Percent Auto 8.5 % (3-14); Neutrophils Absolute Auto 3100 /uL (1500-7000); Neutrophils Percent Auto 63.6 % (50-75); Platelet Count 241 X10^3/uL (150-400); Red Blood Cell Count 3.29 X10^6/uL (4.0-5.2); Red Cell Distribution Width 12.8 % (11.6-14.8); White Blood Cell Count 4.8 X10^3/uL (4.5-11.0)
[2020-12-23 05:50] LABS: Alanine Aminotransferase 18 IU/L (<35); Albumin Globulin Ratio 1.4 (1.0-2.8); Alkaline Phosphatase 66 U/L (38-126); Aspartate Aminotransferase 23 IU/L (14-36); BUN Creatinine Ratio 13.8 (6-22); Bilirubin Total 0.4 mg/dL (0.2-1.3); Blood Urea Nitrogen 8 mg/dL (7-17); Calcium 9.2 mg/dL (8.4-10.2); Carbon Dioxide 34 mmol/L (22-32); Chloride 101 mmol/L (98-107); Estimated Glomerular Filt Rate > 60.0 mL/min (>60); Globulin 2.8 g/dL (1.7-4.1); Glucose 107 mg/dL (70-100); HEMOLYSIS < 15 (0-50); Lipase 157 U/L (23-300); Potassium 3.8 mmol/L (3.4-5.1); Sodium 139 mmol/L (137-145); Total Protein 6.8 g/dL (6.3-8.2)
[2020-12-23 07:50] VITALS: BP 166/106; PULSE 94; RESP 16; TEMP 36.7; O2SAT 96
[2020-12-23] MEDS: ENOXAPARIN 40 MG/0.4 ML SYRINGE SUBCUT (09:39)
[2020-12-23 09:40] VITALS: BP 166/106; PULSE 94
[2020-12-23] MEDS: LOSARTAN 50 MG TABLET PO (09:40)
[2020-12-23] MEDS: GABAPENTIN 300 MG CAPSULE PO ×2 (09:40→20:12)
[2020-12-23] MEDS: buPROPion SR 100 MG TAB PO (09:40)
[2020-12-23 12:20] VITALS: BP 146/88; PULSE 95; RESP 16; TEMP 35.7; O2SAT 98
[2020-12-23 15:45] VITALS: BP 160/106; PULSE 104; RESP 19; TEMP 36.3; O2SAT 97
--- NOTE | 2020-12-23 15:57 | P.PN_ITS ---
Subjective Subjective Date Patient Seen: 12/23/20 Interval history: Today she is feeling improved. Her abdominal pain is improving, but still present especially when she does not take pain medications Exam Vital Signs (past 8 hours): - 12/23/20 09:40 12/23/20 12:20 Temperature 96.2 F L Pulse Rate 94 H 95 H Respiratory Rate 16 Blood Pressure 166/106 H 146/88 H Pulse Oximetry 98 Oxygen Delivery Method Room Air Oxygen Flow Rate 0 Narrative Exam Narrative: General:? Alert and cooperative appearing comfortable Lungs:? Clear to auscultation Heart:? Regular rhythm Abdomen:? Tender in epigastric Extremities: No edema Objective Labs Result Diagrams: 12/23/20 05:21 12/23/20 05:21 Labs: Laboratory Results - last 24 hr 12/23/20 12/23/20 05:21 05:21 WBC 4.8 RBC 3.29 L Hgb 10.4 L Hct 30.6 L MCV 93.1 MCH 31.6 MCHC 34.0 RDW 12.8 Plt Count 241 Neut % (Auto) 63.6 Lymph % (Auto) 25.2 [place] % (Auto) 8.5 Eos % (Auto) 2.2 Baso % (Auto) 0.5 Neut # (Auto) 3100 Lymph # (Auto) 1200 [place] # (Auto) 400 Eos # (Auto) 100 Baso # (Auto) 0 Sodium 139 Potassium 3.8 Chloride 101 Carbon Dioxide 34 H BUN 8 Creatinine 0.58 Estimated GFR > 60.0 BUN/Creatinine Ratio 13.8 Glucose 107 H Calcium 9.2 Total Bilirubin 0.4 AST 23 ALT 18 Alkaline Phosphatase 66 Total Protein 6.8 Albumin 4.0 Globulin 2.8 Albumin/Globulin Ratio 1.4 Lipase 157 D [facility] Medical History Healthy adult Surgical History History of hysterectomy Social History household members: spouse Smoking Status: Never smoker Assessment & Plan Assessment & Plan narrative: 1.? Acute pancreatitis, probable from gallstones -patient does not use alcohol -LFTs unremarkable -lipase on admission 52,666, WBC 13.7, renal function normal, triglycerides minimally high -CT abdomen shows inflammatory changes around pancreas -US shows 1.5 cm stone in gallbladder but otherwise normal -continue IV fluids, pain management -clear liquid diet tolerated well, advance to full liquids -discuss with surgery regarding possibility of gallstone causing pancreatitis, they recommend cholecystectomy likely this admission pending clinical course 2. Hypertension -persistently elevated blood pressures at least moderately elevated -start losartan 50 mg q.d. -check TSH 3. Sciatica left leg, chronic -restarted patient's gabapentin and methocarbamol 4.? History of depression -restarted patient's bupropion Time Spent With Patient Critical Care time: I spent a total of [] minutes of critical care time on this patient's care today; this time is exclusive of procedural time. Quality VTE Deep Vein Thrombosis/Pulmonary Embolism Present on Admission: No
[2020-12-23] MEDS: methocarbamoL 500 MG TABLET PO (16:27)
--- NOTE | 2020-12-23 17:30 | P.PN_ITS ---
Subjective Subjective Interval history: Patient feeling much better. Tolerating p.o. well. Still has some discomfort in her upper abdomen but it is improved. Exam Vital Signs (past 8 hours): - 12/23/20 09:40 12/23/20 12:20 Temperature 96.2 F L Pulse Rate 94 H 95 H Respiratory Rate 16 Blood Pressure 166/106 H 146/88 H Pulse Oximetry 98 Oxygen Delivery Method Room Air Oxygen Flow Rate 0 Objective Labs Result Diagrams: 12/23/20 05:21 12/23/20 05:21 Labs: Laboratory Results - last 24 hr 12/23/20 12/23/20 05:21 05:21 WBC 4.8 RBC 3.29 L Hgb 10.4 L Hct 30.6 L MCV 93.1 MCH 31.6 MCHC 34.0 RDW 12.8 Plt Count 241 Neut % (Auto) 63.6 Lymph % (Auto) 25.2 [place] % (Auto) 8.5 Eos % (Auto) 2.2 Baso % (Auto) 0.5 Neut # (Auto) 3100 Lymph # (Auto) 1200 [place] # (Auto) 400 Eos # (Auto) 100 Baso # (Auto) 0 Sodium 139 Potassium 3.8 Chloride 101 Carbon Dioxide 34 H BUN 8 Creatinine 0.58 Estimated GFR > 60.0 BUN/Creatinine Ratio 13.8 Glucose 107 H Calcium 9.2 Total Bilirubin 0.4 AST 23 ALT 18 Alkaline Phosphatase 66 Total Protein 6.8 Albumin 4.0 Globulin 2.8 Albumin/Globulin Ratio 1.4 Lipase 157 D [facility] Medical History Healthy adult Surgical History History of hysterectomy Social History household members: spouse Smoking Status: Never smoker Assessment & Plan Assessment and plan (1) Acute pancreatitis: Status: Acute (2) Cholelithiasis: Status: Acute Assessment & Plan narrative: Patient improved. Labs improved as well. Will plan to remove her gallbladder tomorrow. I have discussed the operation with her. The potential for an open procedure was discussed as well as laparoscopic. I anticipate to be able to do this laparoscopically. Talked to her about the possibility of a cholangiogram if I am technically able to do it. I talked to her about the possibility of a postoperative ERCP should there be a stone in her common duct or should there be a leakage of bile. Talked to her about the risks of bleeding, hernia, infection, injury to internal organs or ducts which would require major operation to repair, bile leak and the potential again for an open procedure. All questions were answered. Will proceed tomorrow. Orders for NPO written. Preop antibiotics written. Time Spent With Patient Critical Care time: I spent a total of 15 minutes of time on this patient's care today Including reviewing her information and talking to her about the operation.; this time is exclusive of procedural time. Quality VTE Deep Vein Thrombosis/Pulmonary Embolism Present on Admission: No
[2020-12-23 20:14] VITALS: BP 165/93; PULSE 103; O2SAT 96
[2020-12-24] VITALS (16 sets, daily range): BP systolic 127–163; BP diastolic 59–100; PULSE 73–106; RESP 12–16; TEMP 35.5–36.4; O2SAT 90–98; BMI 31.3
--- NOTE | 2020-12-24 | DI.RAD.S_ITS ---
PROCEDURE: XR CHOLANGIOGRAM OPERATIVE INDICATIONS: GALL STONE COMPARISON: None. FINDINGS: Biliary ducts: The surgeon injected contrast into the biliary ducts after cannulation of the cystic duct stump. Visualized intra- and extrahepatic bile ducts are normal in caliber, without strictures. No intraluminal filling defects to suggest retained ductal stones or sludge. No evidence for iatrogenic ductal injury. Duodenum: Contrast flows promptly through the sphincter of Oddi into the duodenum, which appears normal in caliber. IMPRESSION: Unremarkable intraoperative cholangiogram Approved by: George Elizabeth M.D. on 12/24/2020 at 14:21
--- NOTE | 2020-12-24 | PATH_ITS ---
[facility] Accession Number: [id number] . 01 Material submitted: . gallbladder - GALLBLADDER . 02 Diagnosis: Gallbladder, Cholecystectomy: Chronic cholecystitis with cholelithiaisis. Negative for dysplasia and malignancy. MRV 12/27/2020 1334 Local . 02 Electronically signed: . Angelique Hinkle MD, Pathologist NPI- [id number] . 01 Gross description: . The specimen is received in formalin, labeled gallbladder, and consists of an 11.0 x 3.5 x 3.5 cm intact gallbladder with a 0.3 cm in diameter cystic duct. The serosa is matthew-green and smooth. Opening reveals green viscous bile with two matthew-green, bosselated choleliths measuring 1.0 x 1.0 x 1.0 cm each. The mucosa is matthew-green and velvety. The wall thickness measures 0.1 cm. A 0.4 x 0.3 x 0.2 cm, matthew-pink pericystic lymph node is identified. Fiber Machine Tender sections are submitted, to include the en face margin (blue) and pericystic lymph node in cassette A1. ([id number]) /FRR 12/25/2020 1755 Local . 02 Pathologist provided ICD-10: K80.60 . 02 CPT . 086501 Performed at: 01 [facility] [address], [place], [place] [id number] MD Alex Sagastume MD Phone: [phone] Performed at: 02 [facility] [address] [place], [place] [id number] MD Angelique Hinkle MD Phone: [phone]
[2020-12-24] MEDS: OXYCODONE IR 5 MG TABLET PO ×4 (03:34→15:49)
[2020-12-24] MEDS: GABAPENTIN 300 MG CAPSULE PO ×2 (08:12→21:03)
[2020-12-24] MEDS: ACETAMINOPHEN 325 MG TABLET 650 MG PO ×3 (08:12→21:03)
[2020-12-24] MEDS: LOSARTAN 50 MG TABLET PO (08:12)
[2020-12-24] MEDS: buPROPion SR 100 MG TAB PO (08:12)
--- NOTE | 2020-12-24 11:07 | PM.PREOP ---
Pre-operative Note COVID-19 COVID-19 status: Negative Result date/Date tested (Pos, Neg/Pending): 12/21/20 Interval Note History & Physical reviewed/Exam performed by Physician: Yes Changes to H&P: No
--- NOTE | 2020-12-24 11:48 | CM.DPC ---
DCP Cont: Per Hospitalist, Surgeon to take pt to OR today around 1300 for colecystectomy and remove her gallbladder and pending surgical intervention and any complications, pt may be stable for d/c home this evening vs tomorrow if medically stable with outpt follow up. Currently RN has no concerns and pt still agreeable with d/c plan of home with spouse. Plan: SW to follow after surgical intervention this afternoon to confirm safe plan of home with spouse and any further identified discharge planning needs. TINO Gordillo
[2020-12-24] MEDS: LACTATED RINGERS 1,000 ML 84 ML IV (12:00)
--- NOTE | 2020-12-24 12:25 | PC.NURSE ---
Pt taken down for preop by OR nurses at approximately 1145. Medicated with prn oxycodone 5mg per request for L sciatic pain.
[2020-12-24] MEDS: CEFAZOLIN 1 GM VIAL 2 GM IV (13:59)
--- NOTE | 2020-12-24 14:26 | SUR.OPER ---
Supine on padded OR bed, head on pillow, safety belt at thigh, left arm padded and tucked at side. Right arm secured on padded arm board <90 degrees abduction. Legs uncrossed. Padded footboard in place. Tape over blanket to secure lower legs.
[2020-12-24] MEDS: BUPIVACAINE 0.5% (PF) VIAL 30 ML INJ (14:33)
[2020-12-24] MEDS: IOPAMIDOL 15 ML VIAL INJ (14:36)
--- NOTE | 2020-12-24 15:37 | P.OP_ITS ---
Operative Date/Time/Diagnoses Date of procedure: 12/24/20 Time of procedure: 15:38 Pre-op diagnosis: Biliary pancreatitis. Patient with gallstones. Post-op diagnosis: same Procedure & Clinicians Procedure: Laparoscopic cholecystectomy with intraoperative cholangiogram Same procedure as scheduled: Yes Indications: Patient just getting over acute pancreatitis felt to be secondary to gallstone passing through the common bowel duct. Surgeon: Sharath Peralta Click Yes if Unassisted: Yes Anesthesia Type: General Operative Notes Findings: Normal ductal system without filling defect and free flow into the duodenum on cholangiogram. The gallbladder itself was not particularly inflamed. It was quite elongated however. Closure Type: primary Specimen(s): other (Gallbladder and contents) Prosthetic devices, grafts, tissues, transplants, or devices: None Estimated Blood Loss (mL): 15 Blood products transfused: none Procedure in detail: The patient was placed supine on the operating room table and underwent general endotracheal anesthesia. The patient was prepped and draped in the usual fashion. Local anesthetic was infiltrated near the umbilicus and linear incision made just above the umbilicus and carried down through fascia into the peritoneal cavity. Stay sutures of 0 Vicryl were placed in the fascia. A 12 mm port was placed. The abdomen was insufflated. The patient was repositioned. Local anesthetic was infiltrated in 3 areas under the right costal margin and 3 small incisions made followed by placing 3 5 mm ports under direct laparoscopic camera vision internally. The gallbladder was grasped and elevated. Dissection was begun near its end. A ductal structure and singular in nature going directly of the gallbladder was identified. It did not appear to be going beyond the gallbladder. It was dissected from surrounding structures and a clip was placed at the junction of the gallbladder this duct. Small opening was made in the duct intentionally and a cholangiocatheter in serted and cholangiogram performed. The patient appeared to have a fairly long cystic duct crossing over the common bowel duct and free flow into the duodenum. There was no filling defect seen. The cholangiocatheter was removed and 4 clips were placed across the cystic duct and it was divided leaving 3 in the patient. There was a small artery immediately adjacent to the cystic duct and I clipped it at the same time clipping the cystic duct. An additional artery was identified and from surrounding structures. Three clips were placed across it was divided leaving 2 the patient. The gallbladder was Then dissected from its bed in the liver using cautery. I encountered 1 additional pulsating tiny vascular structure which I placed a clip to to control it. The gallbladder was ultimately detached and removed through the umbilical port. the port sites were all irrigated. The stay sutures at the umbilicus were elevated. A 2 0 PDS suture was placed between them. The Vicryl and PDS sutures were then tied. The skin in all areas were irrigated and were closed with interrupted 4 0 Vicryl subcuticular stitches. Steri-Strips and Mastisol were applied. Band- Aids were placed and the patient was awakened, extubated and taken to the recovery area in good condition. Complications: none Post-operative Condition: stable Disposition: PACU
[2020-12-24] MEDS: fentaNYL 100 MCG/2 ML INJ IV ×2 (15:50→16:00)
--- NOTE | 2020-12-24 16:42 | PC.NURSE ---
Pt arrived from PACU. Drowsy but oriented. Band-aidsx4 to abd c/d/i. drinking apple juice, no nausea. SCD's. Pain reassessed 04/28. Sats 94-95% RA. Enc deep breathing. Bed alarm on. Call light within reach.
[2020-12-24] MEDS: KETOROLAC 30 MG/ML VIAL IV ×2 (17:34→23:48)
[2020-12-24] MEDS: LACTATED RINGERS 1,000 ML 125 ML IV (17:34)
--- NOTE | 2020-12-24 17:57 | P.PN_ITS ---
Subjective Subjective Date Patient Seen: 12/24/20 Time Patient Seen: 16:00 Interval history: She is seen after her cholecystectomy. She is feeling well, but has some incisional pain. Exam Vital Signs (past 8 hours): - 12/24/20 11:50 12/24/20 15:34 12/24/20 15:39 Temperature 97.3 F L 97.3 F L Pulse Rate 98 H 84 84 Respiratory Rate 16 16 16 Blood Pressure 142/90 H 128/64 138/79 Pulse Oximetry 95 90 L 95 12/24/20 15:44 12/24/20 15:50 12/24/20 15:59 Temperature 97.6 F Pulse Rate 83 73 89 Respiratory Rate 14 14 16 Blood Pressure 127/67 144/59 H 162/86 H Pulse Oximetry 97 96 94 12/24/20 16:09 12/24/20 16:17 12/24/20 16:23 Temperature 97.6 F Pulse Rate 90 91 H 89 Respiratory Rate 14 12 16 Blood Pressure 158/90 H 153/81 H 148/90 H Pulse Oximetry 96 96 96 12/24/20 16:34 12/24/20 17:00 Temperature 96.2 F L 96 F L Pulse Rate 90 Respiratory Rate 14 14 Blood Pressure 145/86 H 148/95 H Pulse Oximetry 94 92 Oxygen Delivery Method Room Air Oxygen Flow Rate 0 Narrative Exam Narrative: eneral:? Alert and cooperative appearing comfortable Lungs:? Clear to auscultation Heart:? Regular rhythm Abdomen:? Tender abdomen at incision Extremities: No edema Objective Labs Result Diagrams: 12/23/20 05:21 12/23/20 05:21 [facility] Medical History Healthy adult Surgical History History of hysterectomy Social History household members: spouse Smoking Status: Never smoker Assessment & Plan Assessment & Plan narrative: 1.? Acute pancreatitis, probable from gallstones -patient does not use alcohol -LFTs unremarkable -lipase on admission 52,666, WBC 13.7, renal function normal, triglycerides minimally high -CT abdomen shows inflammatory changes around pancreas -US shows 1.5 cm stone in gallbladder but otherwise normal -continue IV fluids, pain management -clear liquid diet tolerated well, advance to full liquids 2. s/p chlocystectomy -went to OR 12/[address] Peralta 2. Hypertension -persistently elevated blood pressures at least moderately elevated -start losartan 50 mg q.d. -check TSH 3. Sciatica left leg, chronic -restarted patient's gabapentin and methocarbamol 4.? History of depression -restarted patient's bupropion Time Spent With Patient Critical Care time: I spent a total of [] minutes of critical care time on this patient's care today; this time is exclusive of procedural time. Quality VTE Deep Vein Thrombosis/Pulmonary Embolism Present on Admission: No
[2020-12-24] MEDS: methocarbamoL 500 MG TABLET PO (23:03)
[2020-12-25 00:15] VITALS: BP 146/70; PULSE 94; RESP 14; TEMP 36.2; O2SAT 97
[2020-12-25] MEDS: LACTATED RINGERS 1,000 ML 125 ML IV (01:50)
[2020-12-25 06:00] VITALS: BP 149/90; PULSE 95; RESP 14; TEMP 37; O2SAT 95
[2020-12-25] MEDS: KETOROLAC 30 MG/ML VIAL IV (06:50)
[2020-12-25 07:51] LABS: Add Manual Diff / Slide Review NO; Basophils Absolute Auto 0 /uL (0-100); Basophils Percent Auto 0.2 % (0-2); Eosinophils Absolute Auto 0 /uL (0-450); Hematocrit 33.6 % (36-46); Hemoglobin 11.7 g/dL (12.0-16.0); Lymphocytes Absolute Auto 700 /uL (1100-4500); Lymphocytes Percent Auto 8.9 % (25-40); Mean Corpuscular HGB Conc 34.9 % (30-36); Mean Corpuscular Hemoglobin 32.5 PG (26-34); Monocytes Absolute Auto 400 /uL (0-900); Monocytes Percent Auto 5.3 % (3-14); Neutrophils Absolute Auto 6600 /uL (1500-7000); Neutrophils Percent Auto 85.6 % (50-75); Platelet Count 302 X10^3/uL (150-400); Red Blood Cell Count 3.61 X10^6/uL (4.0-5.2); Red Cell Distribution Width 12.7 % (11.6-14.8); White Blood Cell Count 7.7 X10^3/uL (4.5-11.0)
[2020-12-25 07:55] VITALS: BP 175/95; PULSE 99; RESP 20; TEMP 36.2; O2SAT 96
[2020-12-25 08:19] LABS: Alanine Aminotransferase 88 IU/L (<35); Albumin 4.5 g/dL (3.5-5.0); Albumin Globulin Ratio 1.5 (1.0-2.8); Alkaline Phosphatase 70 U/L (38-126); Aspartate Aminotransferase 103 IU/L (14-36); BUN Creatinine Ratio 13.2 (6-22); Bilirubin Total 0.4 mg/dL (0.2-1.3); Blood Urea Nitrogen 7 mg/dL (7-17); Calcium 9.8 mg/dL (8.4-10.2); Carbon Dioxide 30 mmol/L (22-32); Chloride 102 mmol/L (98-107); Estimated Glomerular Filt Rate > 60.0 mL/min (>60); Globulin 3.1 g/dL (1.7-4.1); Glucose 136 mg/dL (70-100); HEMOLYSIS 35 (0-50); Potassium 4.4 mmol/L (3.4-5.1); Sodium 141 mmol/L (137-145); Total Protein 7.6 g/dL (6.3-8.2)
[2020-12-25 08:30] VITALS: BP 149/90; PULSE 95
[2020-12-25] MEDS: LOSARTAN 50 MG TABLET PO (08:30)
[2020-12-25] MEDS: GABAPENTIN 300 MG CAPSULE PO (08:31)
[2020-12-25] MEDS: buPROPion SR 100 MG TAB PO (08:31)
[2020-12-25] MEDS: ENOXAPARIN 40 MG/0.4 ML SYRINGE SUBCUT (08:31)
[2020-12-25] MEDS: ACETAMINOPHEN 325 MG TABLET 650 MG PO (08:35)
[2020-12-25] MEDS: methocarbamoL 500 MG TABLET PO (08:36)
--- NOTE | 2020-12-25 10:41 | P.DS_ITS ---
History of Present Illness History of Present Illness Date Patient Seen: 12/25/20 Time Patient Seen: 10:41 Chief complaint: nausea,vomiting stomach pain Narrative: Per Dr. Candelaria, Ms. Hawthorne is a 55W with PMH anxiety and back pain who comes in with abdominal pain. She says she had been in her normal state of health until tonight around 10pm. She had pain that started this evening after eating. She had nausea and vomiting. She did not have diarrhea. Her pain was epigastric and radiated to her back. She had no dysuria, no chest pain, no shortness of breath. She does not drink alcohol more than once every few months. She has had back pain recently and has tried CBD orally, bupropion, gabapentin, prednisone, methocarbamol. She has taken tylenol and nsaids more regularly due to her back pain. She takes vitamins. She has had a hysterectomy, still has her gallbladder. She has had high cholesterol in the past but has not had it checked recently. She has not had trauma to her abdomen. In the ED workup was done, she was noted to be afebrile, heart rate in the 90s, blood pressure elevated. Labs notable for WBC 13.7, hgb 13.8, creatinine 0.62, lipase 73524. LFTs ok. Urinalysis no evidence of infection. CT abdomen showed inflammatory changes and free fluid around the pancreas. She was given pain medications and IV fluids and admitted for further treatment. Family history: patient does not know, is adopted Discharge Providers Provider Date of admission: 12/21/20 03:29 Discharge Date: 12/25/20 Consults: 12/21/20 16:39 Consult to Physician Routine Comment: Consulting Provider: Sharath Peralta Reason for consultation: gallstone pancreatitis Has provider been notified: Yes 12/24/20 16:34 Consult to Discharge Planning Routine Comment: Discharge provider: Andrés Malone DO Summary Hospital Course Discharge Diagnosis: 1. Acute pancreatitis, probable from gallstones 2. s/p chlocystectomy 3. Hypertension 4. Sciatica left leg, chronic 5.? History of depression Hospital Course: This is a 55-year-old female who was admitted with gallstone pancreatitis. She initially improved with bowel rest and her diet was advanced. She underwent laparoscopic cholecystectomy by General surgery. The day following surgery, the patient was tolerating a diet with minimal abdominal pain. She was discharged home. She was also noted to have hypertension was started on 50 mg of losartan. General surgery provided pain medication upon discharge. Patient should follow-up with her primary care provider for her hypertension as well as General surgery after her cholecystectomy. Time Spent with Patient Time spent: Less than 30 minutes Exam Vital Signs (past 8 hours): - 12/25/20 06:00 12/25/20 07:55 12/25/20 08:30 Temperature 98.6 F 97.1 F L Pulse Rate 95 H 99 H 95 H Respiratory Rate 14 20 Blood Pressure 149/90 H 175/95 H 149/90 H Pulse Oximetry 95 96 Oxygen Delivery Method Room Air Oxygen Flow Rate 0 Narrative Exam Narrative: General:? Alert and cooperative appearing comfortable Lungs:? Clear to auscultation no wheezing, rhonchi, rales. Heart:?RRR Abdomen:? soft, non-tender, incision sites c/d/i with bandages in place. Extremities: No edema or joint effusions Objective Labs Result Diagrams: 12/25/20 06:47 12/25/20 06:47 Labs: Laboratory Results - last 24 hr 12/25/20 12/25/20 06:47 06:47 WBC 7.7 RBC 3.61 L Hgb 11.7 L Hct 33.6 L MCV 93.0 MCH 32.5 MCHC 34.9 RDW 12.7 Plt Count 302 Neut % (Auto) 85.6 H Lymph % (Auto) 8.9 L [place] % (Auto) 5.3 Eos % (Auto) 0.0 L Baso % (Auto) 0.2 Neut # (Auto) 6600 Lymph # (Auto) 700 L [place] # (Auto) 400 Eos # (Auto) 0 Baso # (Auto) 0 Sodium 141 Potassium 4.4 Chloride 102 Carbon Dioxide 30 BUN 7 Creatinine 0.53 Estimated GFR > 60.0 BUN/Creatinine Ratio 13.2 Glucose 136 H Calcium 9.8 Total Bilirubin 0.4 AST 103 H ALT 88 H Alkaline Phosphatase 70 Total Protein 7.6 Albumin 4.5 Globulin 3.1 Albumin/Globulin Ratio 1.5 [facility] Medical History Healthy adult Surgical History History of hysterectomy Social History household members: spouse Smoking Status: Never smoker Discharge Plan Discharge Plan Patient Disposition: Home Provider Discharge Comment: You were admitted for inflammation in your pancreas due to gallstones. Your gallbladder was removed. Please follow up with general surgery per their instructions. You were started on a medication for high blood pressure, please follow up with your PMD to see if medication changes are needed within the next 1-2 weeks. If you become constipated use a laxative like milk of magnesia. Discharge orders & Medications Prescriptions: New losartan 50 mg Tablet 50 mg PO DAILY 30 Days Qty: 30 RF: 0 oxycodone-acetaminophen [Percocet] 5-325 mg tablet See Rx Instructions .ROUTE .COMPLEX PRN (Reason: painful procedure) Qty: 20 RF: 0 Continued methocarbamol 500 mg tablet 500 mg PO BID PRN (Reason: low back pain) Qty: 10 RF: 0 gabapentin 300 mg capsule 300 mg PO BID PRN (Reason: acute sciatica) Qty: 20 RF: 0 hydrocodone-acetaminophen 5-325 mg tablet 1 tab PO Q8H PRN (Reason: pain, severe) Qty: 10 RF: 0 bupropion HCl 100 mg tablet sustained-release 12 hr 100 mg PO DAILY RF: 0 Follow up/Referrals: Sharath Peralta MD [Physician] - (If you already have an appointment please keep it. If not call my office and make an appointment to see me or 1 of my partners in 1-2 weeks. If you need to reach a doctor please call our office. If it is after hours listen to the message and you will be instructed how to page the doctor on-call for our practice. Have a pen and paper ready to write the 1 800 number down.) Diet/Activity/Treatments Diet: Diet as Tolerated and Low-fat Activity: Do not drive into your pain-free off medication. Do not lift over 10 lb or strain for the next 4 weeks. You may walk. No other exercise. No pool or tub for at least 2 weeks. Skin/Wound/Dressing Care Report to your healthcare provider any signs of infection, such as:: chills, fever, increased pain, unusual drainage and unusual redness Visit Report/Discharge Packet Instructions: DI for Open Cholecystectomy, DI for Prescription Opioid Use, DI for Laparoscopic Cholecystectomy Quality VTE Deep Vein Thrombosis/Pulmonary Embolism Present on Admission: No
[2020-12-25 11:25] VITALS: BP 162/92; PULSE 97; RESP 18; TEMP 36.4; O2SAT 96
--- NOTE | 2020-12-25 14:26 | PC.NURSE ---
Pt A&OX3 this a.m. c/o minimal abdominal pain 3-4/10. Reports L sciatic pain 7/10 and medicated per request with tylenol and robaxim with good effect. Pt voiding, ambulating in room, + flatus. BS normo to hypoactive. Soft tender abdomen over incision site. Incision C/D/I. She is tolerating Full liquid diet and oatmeal well this a.m. No n/v, VSS, afebrile on RA. LS CTA. Slightly hypertensive, scheduled medications with losartan administered. at bedside. MD Gardner and hospitalist clear patient for discharge home. She verbalizes understanding of medications, activity, site care, activity restrictions, s/sx of infections and follow up instructions. RN escorted patient via w/ch to private vehicle with at 1140 with all of her belongings at approximately 1250.
== END 2020-12-25 12:50 | disposition home or self-care (01) | DRG 417 ==
LOC: ED 03:25 → AC 03:30
PROVIDERS: Internal Medicine; Specialist; Admitting Provider Internal Medicine; Emergency Provider Emergency Medicine; Family Provider Registered Nurse; Referring Provider Emergency Medicine; Visit Provider Internal Medicine
PROC: 0FT44ZZ Resection of Gallbladder, Percutaneous Endoscopic Approach (ICD-10-PCS; CPT 47562; principal; 2020-12-24 13:00)
DX: K80.20 Calculus of gallbladder without cholecystitis without obstruction (principal); K85.10 Biliary acute pancreatitis without necrosis or infection; I10 Essential (primary) hypertension; G89.29 Other chronic pain; M54.32 Sciatica, left side; F32.A Depression, unspecified; Z20.822 Contact with and (suspected) exposure to COVID-19
CPT/HCPCS: 36415; 47563; 74177; 74300; 76705; 80053; 81003; 81015; 83690; 83735; 84443; 84478; 85025; 87635; 96374; 96375; 99221; 99232; 99284; C9803; J0690; J1100; J1170; J1650; J1885; J2270; J2405; J2704; J3010; Q9967

== ENCOUNTER 2021-12-07 21:54 | Inpatient (IN) | payer OTHER, SELFPAY ==
[2020-12-21 04:40] VITALS: BMI 31.3
[2021-12-07 22:05] VITALS: BP 219/111; PULSE 104; RESP 18; TEMP 37; O2SAT 98
[2021-12-07] MEDS: ONDANSETRON 4 MG/2 ML INJ IV (23:19)
[2021-12-07 23:24] LABS: Alanine Aminotransferase 91 IU/L (<35); Albumin Globulin Ratio 1.4 (1.0-2.8); Alkaline Phosphatase 100 U/L (38-126); Aspartate Aminotransferase 50 IU/L (14-36); BUN Creatinine Ratio 33.8 (6-22); Bilirubin Total 0.3 mg/dL (0.2-1.3); Blood Urea Nitrogen 22 mg/dL (7-17); Calcium 9.8 mg/dL (8.4-10.2); Carbon Dioxide 27 mmol/L (22-32); Chloride 101 mmol/L (98-107); Estimated Glomerular Filt Rate > 60 mL/min (>60); Globulin 3.5 g/dL (1.7-4.1); Glucose 129 mg/dL (70-100); Potassium 3.7 mmol/L (3.4-5.1); Sodium 142 mmol/L (137-145); Total Protein 8.5 g/dL (6.3-8.2)
[2021-12-07 23:29] LABS: Add Manual Diff / Slide Review NO; Basophils Absolute Auto 0 /uL (0-100); Basophils Percent Auto 0.3 % (0-2); Eosinophils Absolute Auto 100 /uL (0-450); Eosinophils Percent Auto 1.1 % (2-4); Hematocrit 40.6 % (36-46); Hemoglobin 14.4 g/dL (12.0-16.0); Lymphocytes Absolute Auto 2200 /uL (1100-4500); Lymphocytes Percent Auto 18.6 % (25-40); Mean Corpuscular HGB Conc 35.5 % (30-36); Mean Corpuscular Hemoglobin 32.1 PG (26-34); Mean Corpuscular Volume 90.3 fL (80-100); Monocytes Absolute Auto 700 /uL (0-900); Monocytes Percent Auto 5.9 % (3-14); Neutrophils Absolute Auto 8700 /uL (1500-7000); Neutrophils Percent Auto 74.1 % (50-75); Platelet Count 360 X10^3/uL (150-400); Red Cell Distribution Width 12.7 % (11.6-14.8); White Blood Cell Count 11.8 X10^3/uL (4.5-11.0)
--- NOTE | 2021-12-07 23:30 | ED_ITS ---
HPI - Abdominal Pain General Chief Complaint: Abdominal Pain Stated Complaint: thinks pancreatitis flare Time Seen by Provider: 12/07/21 23:20 Source: patient Mode of arrival: Ambulatory History of Present Illness HPI narrative: Patient is a 56-year-old female history of anxiety and pancreatitis presents today with sudden onset of abdominal pain. She says this feels like when she had her previous attack of pancreatitis is which was thought to be caused by has gallstones she did have a cholecystectomy during her admission in December of 2020. He says he was feeling fine earlier this morning and yesterday this came on quite suddenly. She is nauseous and in quite a bit of pain. She states that she really does not drink alcohol she has not traveled anywhere she does not appear to be on any other medications to cause pancreatitis. But is in obvious abdominal pain. Related Data Home Medications Medication Instructions Recorded Confirmed losartan 50 mg tablet mg 12/08/21 Allergies Allergy/AdvReac Type Severity Reaction Status Date / Time amoxicillin AdvReac Intermediate Diarrhea Verified 01/06/21 15:19 Sulfa (Sulfonamide AdvReac Intermediate Nausea Verified 01/06/21 15:19 Antibiotics) Review of Systems Review of Systems Narrative: GENERAL: Denies chills, fatigue, malaise, fever, sweats, travel HEENT: Denies sinus pain, ear pain, sore throat, difficulty swallowing, neck pain RESPIRATORY: Denies dyspnea, cough, wheezing, hemoptysis, sputum. CARDIOVASCULAR: Denies chest pain, palpitations, orthopnea, edema GASTROINTESTINAL: See HPI : Denies dysuria, frequency, incontinence, hematuria, urinary retention, flank pain. MUSCULOSKELETAL: Denies weakness, joint pain, or bony pain SKIN: No rash, no erythema, no pruritus NEUROLOGIC: Denies weakness, dizziness, headache, numbness, change in speech, confusion PSYCHIATRIC: No concerning psychosocial issues. 12 point review of systems is negative except for those stated above and HPI Patient History Medical History Healthy adult Surgical History History of hysterectomy Social History household members: spouse Smoking Status: Never smoker Smoking Status: Never smoker alcohol intake frequency: 0-2 drinks per day Substance Use Type: does not use Exam Initial Vital Signs Initial Vital Signs: Vital Signs Temperature 98.6 F 12/07/21 22:05 Pulse Rate 104 H 12/07/21 22:05 Respiratory Rate 18 12/07/21 22:05 Blood Pressure 219/111 H 12/07/21 22:05 Pulse Oximetry 98 12/07/21 22:05 Oxygen Delivery Method 12/07/21 22:05 GENERAL: Alert 56-year-old female appears uncomfortable HEENT: Head atraumatic,EOMI, pupils reactive, face symmetric, moist mucous membranes] CARDIOVASCULAR: Regular rate and rhythm without murmurs, rubs or gallops. RESPIRATORY: Breath sounds equal bilaterally, no wheezes rales or rhonchi. ABDOMEN: Soft, tender periumbilical area no significant right upper quadrant EXTREMITIES: Normal range of motion, no clubbing or edema. Neurovascularly in tact NEUROLOGICAL: Alert and oriented x4. SKIN: Warm, dry, no laceration, no petechiae, no rashes or lesions. Course Orders Ordered: ED Orders 12/07/21 22:17 EKG-12 Lead Stat 12/07/21 22:55 Complete Blood Count AUTO DIFF Stat Comprehensive Metabolic Panel Stat Lipase Stat 12/08/21 00:02 CT abdomen pelvis w con Stat 12/08/21 02:18 COVID19 -Nasal RAPID/Pre-Proc Stat Sodium Chloride (Normal Saline 0.9%) 1,000 mls @ 150 mls/hr IV CONT TOM Discontinued Medications Hydromorphone HCl (Hydromorphone 1 Mg Inj) 1 mg IV NOW ONE Stop: 12/08/21 01:55 Last Admin: 12/08/21 02:00 Dose: 1 mg Documented By: TORIE Sodium Chloride (Normal Saline 0.9%) 1,000 mls @ 1,000 mls/hr IV BOLUS ONE Stop: 12/08/21 00:29 Last Infusion: 12/08/21 01:18 Dose: 0 mls/hr Documented By: Admin: 12/07/21 23:56 Dose: 1,000 mls/hr Documented By: FRANK Sodium Chloride (Normal Saline 0.9%) 1,000 mls @ 1,000 mls/hr IV BOLUS ONE Stop: 12/08/21 01:01 Last Admin: 12/08/21 02:07 Dose: 1,000 mls/hr Documented By: TORIE Morphine Sulfate (Morphine 4 Mg/Ml Inj) 4 mg IV NOW ONE Stop: 12/07/21 23:31 Last Admin: 12/07/21 23:56 Dose: 4 mg Documented By: FRANK Ondansetron HCl (Ondansetron 4 Mg/2 Ml Inj) 4 mg IV NOW ONE Stop: 12/07/21 23:17 Last Admin: 12/07/21 23:19 Dose: 4 mg Documented By: FRANK Vital Signs Vital signs: Vital Signs - 8 hr 12/07/21 22:05 12/08/21 00:17 12/08/21 00:17 Temperature 98.6 F Pulse Rate 104 H 75 Respiratory Rate 18 Blood Pressure 219/111 H 167/86 H Pulse Oximetry 98 97 Oxygen Delivery Method Room Air 12/08/21 00:19 12/08/21 00:28 12/08/21 00:30 Temperature Pulse Rate 83 Respiratory Rate Blood Pressure 187/96 H 173/84 H Pulse Oximetry 98 Oxygen Delivery Method 12/08/21 00:30 12/08/21 01:00 12/08/21 01:01 Temperature Pulse Rate 87 83 Respiratory Rate 15 Blood Pressure 170/77 H Pulse Oximetry 98 98 Oxygen Delivery Method 12/08/21 01:01 12/08/21 01:39 12/08/21 01:41 Temperature Pulse Rate 82 89 Respiratory Rate 13 Blood Pressure 183/101 H Pulse Oximetry 99 Oxygen Delivery Method 12/08/21 01:41 12/08/21 02:00 12/08/21 02:00 Temperature Pulse Rate 85 85 Respiratory Rate 16 15 Blood Pressure 188/91 H Pulse Oximetry 98 97 Oxygen Delivery Method MDM - Abdominal Pain Lab Data Result diagrams: 12/07/21 22:55 12/07/21 22:55 Labs: Lab Results 12/07/21 12/07/21 Range/Units 22:55 22:55 WBC 11.8 H (4.5-11.0) X10^3/uL RBC 4.50 (4.0-5.2) X10^6/uL Hgb 14.4 (12.0-16.0) g/dL Hct 40.6 (36-46) % MCV 90.3 (80-100) fL MCH 32.1 (26-34) PG MCHC 35.5 (30-36) % RDW 12.7 (11.6-14.8) % Plt Count 360 (150-400) X10^3/uL Neut % (Auto) 74.1 (50-75) % Lymph % (Auto) 18.6 L (25-40) % [place] % (Auto) 5.9 (3-14) % Eos % (Auto) 1.1 L (2-4) % Baso % (Auto) 0.3 (0-2) % Neut # (Auto) 8700 H (1240-6459) /uL Lymph # (Auto) 2200 (2255-3538) /uL [place] # (Auto) 700 (0-900) /uL Eos # (Auto) 100 (0-450) /uL Baso # (Auto) 0 (0-100) /uL Sodium 142 (137-145) mmol/L Potassium 3.7 (3.4-5.1) mmol/L Chloride 101 (98-107) mmol/L Carbon Dioxide 27 (22-32) mmol/L BUN 22 H (7-17) mg/dL Creatinine 0.65 (0.52-1.04) mg/dL Estimated GFR > 60 (>60) mL/min BUN/Creatinine Ratio 33.8 H (6-22) Glucose 129 H (70-100) mg/dL Calcium 9.8 (8.4-10.2) mg/dL Total Bilirubin 0.3 (0.2-1.3) mg/dL AST 50 H (14-36) IU/L ALT 91 H (<35) IU/L Alkaline Phosphatase 100 (38-126) U/L Total Protein 8.5 H (6.3-8.2) g/dL Albumin 5.0 (3.5-5.0) g/dL Globulin 3.5 (1.7-4.1) g/dL Albumin/Globulin Ratio 1.4 (1.0-2.8) Lipase 19299 H (23-300) U/L Imaging Data CT scan - abdomen/pelvis: Radiologist's Impression: Gracie Hawthorne MR#: [id number] : 1965 Acct:[id number] Age/Sex: 56 / F Date of Service: 12/08/21 Loc: ED Accession Number: [id number] ?? Procedure: CT abdomen pelvis w con Ordering Provider: Lulu Esparza D.O. PROCEDURE:? CT ABDOMEN PELVIS W CON ? INDICATIONS:? pancreatitis ? TECHNIQUE:? After the administration of IV contrast, axial sections were acquired from the lung bases to the pubic symphysis.? Coronal and sagittal reformats were performed.? For radiation dose reduction, the following was used:? automated exposure control, adjustment of mA and/or kV according to patient size. ? COMPARISON:? US, PELVIC COMPLETE, 10/08/2013, 10:13.? [facility], CT, CT ABDOMEN PELVIS W CON, 12/21/2020, 1:36. ? FINDINGS:? Image quality:? Excellent.? ? Lung bases:? There is mild dependent atelectasis.? ? Heart:? Heart is normal in size. ? ? ABDOMEN: Liver:? No mass lesion. Gallbladder:? Surgically absent. Biliary ducts:? No biliary ductal dilatation.? ? Pancreas:? There is peripancreatic fat stranding and fluid consistent with interstitial edematous pancreatitis.? No evidence of necrosis.? No acute peripancreatic fluid collections.? No pancreatic duct dilatation.? Spleen:? Normal in size.? ? Adrenal Glands:? No adrenal nodules.? ? Kidneys and Ureters:? No hydronephrosis.? ? ? Stomach and Bowel:? Stomach, small bowel loops, and colon are normal in caliber and wall thickness.? The appendix is normal in appearance.? Peritoneum:? There is peripancreatic free fluid extending inferiorly along the anterior pararenal spaces.? A small amount of free fluid is demonstrated in the pelvis.? No free air.? ? Ventral Wall: ? No hernia.? Abdominal Nodes:? No retroperitoneal or mesenteric adenopathy by size criteria.? Vessels:? Aorta and inferior vena cava are normal in size.? ? PELVIS: Pelvic Organs:? There are bilateral enlarged ovaries with multiple cysts redemonstrated.? These measure up to 4.5 x 4.0 cm in transverse dimension on the right and 6.3 x 3.6 cm on the left.? There is a left ovarian cyst measuring up to 4.6 cm which appears increased in size from 4.0 cm previously.? The uterus is surgically absent. Bladder:? Unremarkable.? ? Pelvic Nodes: No enlarged lymph nodes.? Miscellaneous: No inguinal hernias are seen. ? ? ? Bones:? Visualized osseous structures demonstrate no suspicious focal lesions. ? IMPRESSION:? ? 1.? Peripancreatic fat stranding and fluid consistent with acute interstitial edematous pancreatitis.? No evidence of necrosis or loculated acute peripancreatic fluid collections. ? 2. Bilateral enlarged ovaries with multiple cysts redemonstrated with interval increase in size of the largest cyst in the left ovary.? Recommend follow-up pelvic ultrasound for further evaluation.? ? ? Dictated by: Alex Barron M.D. on 12/08/2021 at 1:05 ? ? [facility] Narrative Medical decision making narrative: The patient complains of abdominal pain with nausea and vomiting she again is found have pancreatitis with a lipase of 45,000. His no significant elevation of bilirubin or liver enzymes other liver enzymes are mildly elevated. Pain is better controlled with medications. She attempted to drink water but it made her more nauseous. Vanita Moran accepts patient. Discharge Plan Departure Patient Disposition: Admitted as Observation Clinical Impression: Acute pancreatitis Admit Date/Time: 12/08/21 02:11 Admit Provider: Gail Moran
[2021-12-07 23:56] LABS: HEMOLYSIS < 15 (0-50)
[2021-12-07] MEDS: MORPHINE 4 MG/ML INJ IV (23:56)
[2021-12-07] MEDS: SODIUM CHLORIDE 0.9% 1,000 ML 1000 ML IV (23:56)
[2021-12-08] VITALS (22 sets, daily range): BP systolic 107–193; BP diastolic 50–104; PULSE 73–107; RESP 13–18; TEMP 35.9–36.7; O2SAT 94–99
[2021-12-08] LABS: Lipase 45818 U/L (23-300)
--- NOTE | 2021-12-08 00:02 | DI.CT.S_ITS ---
PROCEDURE: CT ABDOMEN PELVIS W CON INDICATIONS: pancreatitis TECHNIQUE: After the administration of IV contrast, axial sections were acquired from the lung bases to the pubic symphysis. Coronal and sagittal reformats were performed. For radiation dose reduction, the following was used: automated exposure control, adjustment of mA and/or kV according to patient size. COMPARISON: US, PELVIC COMPLETE, 10/08/2013, 10:13. [facility], CT, CT ABDOMEN PELVIS W CON, 12/21/2020, 1:36. FINDINGS: Image quality: Excellent. Lung bases: There is mild dependent atelectasis. Heart: Heart is normal in size. ABDOMEN: Liver: No mass lesion. Gallbladder: Surgically absent. Biliary ducts: No biliary ductal dilatation. Pancreas: There is peripancreatic fat stranding and fluid consistent with interstitial edematous pancreatitis. No evidence of necrosis. No acute peripancreatic fluid collections. No pancreatic duct dilatation. Spleen: Normal in size. Adrenal Glands: No adrenal nodules. Kidneys and Ureters: No hydronephrosis. Stomach and Bowel: Stomach, small bowel loops, and colon are normal in caliber and wall thickness. The appendix is normal in appearance. Peritoneum: There is peripancreatic free fluid extending inferiorly along the anterior pararenal spaces. A small amount of free fluid is demonstrated in the pelvis. No free air. Ventral Wall: No hernia. Abdominal Nodes: No retroperitoneal or mesenteric adenopathy by size criteria. Vessels: Aorta and inferior vena cava are normal in size. PELVIS: Pelvic Organs: There are bilateral enlarged ovaries with multiple cysts redemonstrated. These measure up to 4.5 x 4.0 cm in transverse dimension on the right and 6.3 x 3.6 cm on the left. There is a left ovarian cyst measuring up to 4.6 cm which appears increased in size from 4.0 cm previously. The uterus is surgically absent. Bladder: Unremarkable. Pelvic Nodes: No enlarged lymph nodes. Miscellaneous: No inguinal hernias are seen. Bones: Visualized osseous structures demonstrate no suspicious focal lesions. IMPRESSION: 1. Peripancreatic fat stranding and fluid consistent with acute interstitial edematous pancreatitis. No evidence of necrosis or loculated acute peripancreatic fluid collections. 2. Bilateral enlarged ovaries with multiple cysts redemonstrated with interval increase in size of the largest cyst in the left ovary. Recommend follow-up pelvic ultrasound for further evaluation. Dictated by: Alex Barron M.D. on 12/08/2021 at 1:05 Approved by: Alex Barron M.D. on 12/08/2021 at 1:13
[2021-12-08] MEDS: HYDROMORPHONE 1 MG INJ IV ×4 (02:00→18:15)
[2021-12-08] MEDS: SODIUM CHLORIDE 0.9% 1,000 ML 1000 ML IV (02:07)
[2021-12-08 02:39] LABS: COVID19 -Nasal RAPID Negative (Negative)
--- NOTE | 2021-12-08 03:27 | P.HP_ITS ---
History of Present Illness History of Present Illness Date Patient Seen: 12/08/21 Time Patient Seen: 03:27 Chief complaint: thinks pancreatitis flare Narrative: Gracie Hawthorne is a 56 y.o. non-drinking female with a prior history of gallstone related pancreatitis with hypertension was in her usual state of health and having had dinner with friends yesterday stated she felt off, threw up and developed mid epigastric pain. She had a bout of pancreatitis almost one year ago, was hospitalized and underwent laproscopic cholecystectomy with an interoperative cholangiogram. She states this felt exactly the same as last year. She denies fever, sweats, or chills, shortness of breath, dysurea, diarrhea or constipation. Denies neuropathy or swelling of her upper or lower extremities. CT of the chest abdomen and pelvis indicated peripancreatic fat stranding and fluid consistent with interstitial edematous pancreatitis with no evidence of necrosis. She has a number of ovarian cyst noted. She is afebrile, blood pressure 180/84, heart rate 88, respiratory rate 17, oxygen saturation of 90% on room air she weighs 89.5 kg with a BMI of 30. CBC is unremarkable, just a mildly elevated glucose of 129, AST is 50 ALT 91 and lipase is over 45,000, COVID-19 PCR is negative. FH: Patient is adopted and does not know her father. Mother is 69 and has fibromyalgia and interstitial cystitis. Patient History Medical History Essential hypertension Healthy adult Pancreatitis Surgical History History of hysterectomy Family & Social History Family History (Updated 12/08/21 @ 04:19 by SAMIRA Elias) Mother Interstitial cystitis Fibromyalgia Family history unavailable: No (Adopted, does not know father.) Social History: household members spouse Prior Living Arrangements House Safety & Behavioral: Feels Safe in Current Yes Environment Been Physically Hurt or No Threatened By a Person Tobacco & Substance use: Smoking Status Never smoker alcohol intake frequency holiday/special occasion Substance Use Type does not use Meds Home Medications and Allergies Home Medications Medication Instructions Recorded Confirmed Type losartan 50 mg tablet 50 mg PO DAILY 12/08/21 12/08/21 History Allergies Allergy/AdvReac Type Severity Reaction Status Date / Time amoxicillin AdvReac Intermediate Diarrhea Verified 01/06/21 15:19 Sulfa (Sulfonamide AdvReac Intermediate Nausea Verified 01/06/21 15:19 Antibiotics) Review of Systems Review of Systems ROS: Yes All systems reviewed with the patient and are negative except as otherwise documented Exam Vital Signs (past 8 hours): - 12/07/21 22:05 12/08/21 00:17 12/08/21 00:17 Temperature 98.6 F Pulse Rate 104 H 75 Respiratory Rate 18 Blood Pressure 219/111 H 167/86 H Pulse Oximetry 98 97 Oxygen Delivery Method Room Air Oxygen Flow Rate 12/08/21 00:19 12/08/21 00:28 12/08/21 00:30 Temperature Pulse Rate 83 Respiratory Rate Blood Pressure 187/96 H 173/84 H Pulse Oximetry 98 Oxygen Delivery Method Oxygen Flow Rate 12/08/21 00:30 12/08/21 01:00 12/08/21 01:01 Temperature Pulse Rate 87 83 Respiratory Rate 15 Blood Pressure 170/77 H Pulse Oximetry 98 98 Oxygen Delivery Method Oxygen Flow Rate 12/08/21 01:01 12/08/21 01:39 12/08/21 01:41 Temperature Pulse Rate 82 89 Respiratory Rate 13 Blood Pressure 183/101 H Pulse Oximetry 99 Oxygen Delivery Method Oxygen Flow Rate 12/08/21 01:41 12/08/21 02:00 12/08/21 02:00 Temperature Pulse Rate 85 85 Respiratory Rate 16 15 Blood Pressure 188/91 H Pulse Oximetry 98 97 Oxygen Delivery Method Oxygen Flow Rate 12/08/21 02:30 12/08/21 02:30 12/08/21 02:55 Temperature 96.7 F L Pulse Rate 86 88 Respiratory Rate 15 17 Blood Pressure 169/84 H 180/84 H Pulse Oximetry 94 98 Oxygen Delivery Method Oxygen Flow Rate 0 Oxygen Delivery Method Room Air Oxygen Flow Rate 0 Narrative Exam Narrative: Gen: Alert, oriented, well-nourished and overweight 56 y.o. female, NAD HEENT: normocephalic, atraumatic, conjunctiva clear, sclera non-icteric, oral mucosa pink and moist Neck: supple, full ROM, no JVD, trachea is midline Resp: Lungs CTA, non-labored breathing CV: RRR, no murmur or rubs Abd: soft, diffusely tender mid epigastric bilaterally, normoactive BTs Skin: no lesions or rashes, dry and intact Neuro: Alert and oriented X 4 w/no focal deficits. Speech clear and coherent. Extremities: moves all 4 extremities, is ambulatory, negative Reginaldo?s sign Psyche: normal mood and affect. Objective Labs Result Diagrams: 12/07/21 22:55 12/07/21 22:55 Labs: Laboratory Results - last 24 hr 12/07/21 12/07/21 12/08/21 22:55 22:55 02:18 WBC 11.8 H RBC 4.50 Hgb 14.4 Hct 40.6 MCV 90.3 MCH 32.1 MCHC 35.5 RDW 12.7 Plt Count 360 Neut % (Auto) 74.1 Lymph % (Auto) 18.6 L [place] % (Auto) 5.9 Eos % (Auto) 1.1 L Baso % (Auto) 0.3 Neut # (Auto) 8700 H Lymph # (Auto) 2200 [place] # (Auto) 700 Eos # (Auto) 100 Baso # (Auto) 0 Sodium 142 Potassium 3.7 Chloride 101 Carbon Dioxide 27 BUN 22 H Creatinine 0.65 Estimated GFR > 60 BUN/Creatinine Ratio 33.8 H Glucose 129 H Calcium 9.8 Total Bilirubin 0.3 AST 50 H ALT 91 H Alkaline Phosphatase 100 Total Protein 8.5 H Albumin 5.0 Globulin 3.5 Albumin/Globulin Ratio 1.4 Lipase 39508 H SARS-CoV-2 (PCR) Negative Assessment & Plan Assessment & Plan narrative: Gracie Robertson is placed into observation for pain and symptomatic management of an acute pancreatitis flare-up. Acute pancreatitis, present on admission * NPO tonight, progress to clears in the am * Pain control with IV ketoralac and morphine * Encourage low-fat diet * IVF NS at 100 ml/hour Hypertension, likely worsened due to pain * She normally takes losartan 50 mg daily * She is written for IV enalapril 0.625 mg x1 VTE Prophylaxis: Wells risk score 0 [X]Enoxaparin 40 mg subQ once daily X Bi lateral SCDs Patient is placed into observation as her stay is not expected to exceed 2 midnights. FEN: IV fluids: NS at 100 ml/hour, diet: NPO, advance as tolerated, labs: CBC, C/BMP, liver enzymes, Mag, PT/INR Consultants None Dispo: probable d/c to home Code status: Full code as discussed with the patient who identifies her , Dileep as her surrogate and POA. [X] I have utilized all available immediate resources to obtain, update, or review of the patient's current medications VTE Deep Vein Thrombosis/Pulmonary Embolism Present on Admission: No MIPS - Admit I confirm the patient?s Advance Care Plan is present, Code status is documented, Surrogate decision maker is in patient?s record: Yes MIPS - DC The patient has current or prior documentation of left ventricular ejection fraction (LVEF) less than 40%, or moderate or severely depressed left ventricular systolic function.: No COVID-19 COVID-19 status: Negative Result date/Date tested (Pos, Neg/Pending): 12/08/21 Quality VTE Deep Vein Thrombosis/Pulmonary Embolism Present on Admission: No
[2021-12-08] MEDS: SODIUM CHLORIDE 0.45% 1,000 ML 100 ML IV ×2 (03:57→13:41)
[2021-12-08] MEDS: ENALAPRILAT 2.5 MG/ 2 ML VIAL 0.625 MG IV (04:05)
[2021-12-08] MEDS: KETOROLAC 30 MG/ML VIAL 15 MG IV (04:10)
[2021-12-08] MEDS: MORPHINE 2 MG/ML INJ IV (05:03)
[2021-12-08] MEDS: ONDANSETRON 4 MG/2 ML INJ IV (05:11)
[2021-12-08 06:22] LABS: Add Manual Diff / Slide Review NO; Basophils Absolute Auto 0 /uL (0-100); Basophils Percent Auto 0.2 % (0-2); Eosinophils Absolute Auto 0 /uL (0-450); Hematocrit 40.5 % (36-46); Hemoglobin 14.3 g/dL (12.0-16.0); Lymphocytes Absolute Auto 700 /uL (1100-4500); Lymphocytes Percent Auto 4.9 % (25-40); Mean Corpuscular HGB Conc 35.3 % (30-36); Mean Corpuscular Volume 90.5 fL (80-100); Monocytes Absolute Auto 700 /uL (0-900); Monocytes Percent Auto 4.9 % (3-14); Neutrophils Absolute Auto 12500 /uL (1500-7000); Platelet Count 321 X10^3/uL (150-400); Red Blood Cell Count 4.47 X10^6/uL (4.0-5.2); Red Cell Distribution Width 12.8 % (11.6-14.8); White Blood Cell Count 13.9 X10^3/uL (4.5-11.0)
[2021-12-08 06:39] LABS: Alanine Aminotransferase 68 IU/L (<35); Albumin 4.2 g/dL (3.5-5.0); Albumin Globulin Ratio 1.4 (1.0-2.8); Alkaline Phosphatase 83 U/L (38-126); Aspartate Aminotransferase 37 IU/L (14-36); BUN Creatinine Ratio 34.8 (6-22); Bilirubin Total 0.4 mg/dL (0.2-1.3); Bilirubin Unconjugated 0.3 mg/dL (0.0-1.1); Blood Urea Nitrogen 16 mg/dL (7-17); Calcium 8.6 mg/dL (8.4-10.2); Carbon Dioxide 23 mmol/L (22-32); Chloride 104 mmol/L (98-107); Cholesterol 271 mg/dL (140-199); Estimated Glomerular Filt Rate > 60 mL/min (>60); Glucose 144 mg/dL (70-100); HDL Cholesterol 37 mg/dL (40-60); HEMOLYSIS < 15 (0-50); LDL Cholesterol Calculated 206 mg/dL (<100); Potassium 4.1 mmol/L (3.4-5.1); Sodium 140 mmol/L (137-145); Total Protein 7.2 g/dL (6.3-8.2); Triglycerides 139 mg/dL (35-150)
--- NOTE | 2021-12-08 08:46 | PM.PN.1 ---
Subjective Subjective Date Patient Seen: 12/08/21 Time Patient Seen: 10:00 Interval history: Patient with ongoing abd pain so IV pain meds changed to dilaudid with great effect. Her abd pain is well controlled at this time. She is tolerating clear liquids. No NV. Exam Vital Signs (past 8 hours): - 12/08/21 01:00 12/08/21 01:01 12/08/21 01:01 Temperature Pulse Rate 83 82 Respiratory Rate 15 13 Blood Pressure 170/77 H Pulse Oximetry 98 99 Oxygen Delivery Method Oxygen Flow Rate 12/08/21 01:39 12/08/21 01:41 12/08/21 01:41 Temperature Pulse Rate 89 85 Respiratory Rate 16 Blood Pressure 183/101 H Pulse Oximetry 98 Oxygen Delivery Method Oxygen Flow Rate 12/08/21 02:00 12/08/21 02:00 12/08/21 02:30 Temperature Pulse Rate 85 Respiratory Rate 15 Blood Pressure 188/91 H 169/84 H Pulse Oximetry 97 Oxygen Delivery Method Oxygen Flow Rate 12/08/21 02:30 12/08/21 02:55 12/08/21 03:29 Temperature 96.7 F L Pulse Rate 86 88 Respiratory Rate 15 17 Blood Pressure 180/84 H Pulse Oximetry 94 98 98 Oxygen Delivery Method Room Air Oxygen Flow Rate 0 12/08/21 05:16 12/08/21 06:00 Temperature 96.8 F L Pulse Rate 87 87 Respiratory Rate 16 Blood Pressure 125/78 148/89 H Pulse Oximetry 95 Oxygen Delivery Method Oxygen Flow Rate 0 Oxygen Delivery Method Room Air Oxygen Flow Rate 0 Narrative Exam Narrative: Gen: Alert, oriented, well-nourished and overweight 56 y.o. female, NAD HEENT: normocephalic, atraumatic, conjunctiva clear, sclera non-icteric, oral mucosa pink and moist Neck: supple, full ROM, no JVD, trachea is midline Resp: Lungs CTA, non-labored breathing CV: RRR, no murmur or rubs Abd: soft, tender to palpation at epigastrium, normoactive BTs Skin: no lesions or rashes, dry and intact Neuro: Alert and oriented X 4 w/no focal deficits. Speech clear and coherent. Extremities: moves all 4 extremities, is ambulatory, negative Reginaldo?s sign Psyche: normal mood and affect. Objective Labs Result Diagrams: 12/08/21 06:06 12/08/21 06:06 Labs: Laboratory Results - last 24 hr 12/07/21 12/07/21 12/08/21 22:55 22:55 02:18 WBC 11.8 H RBC 4.50 Hgb 14.4 Hct 40.6 MCV 90.3 MCH 32.1 MCHC 35.5 RDW 12.7 Plt Count 360 Neut % (Auto) 74.1 Lymph % (Auto) 18.6 L [place] % (Auto) 5.9 Eos % (Auto) 1.1 L Baso % (Auto) 0.3 Neut # (Auto) 8700 H Lymph # (Auto) 2200 [place] # (Auto) 700 Eos # (Auto) 100 Baso # (Auto) 0 Sodium 142 Potassium 3.7 Chloride 101 Carbon Dioxide 27 BUN 22 H Creatinine 0.65 Estimated GFR > 60 BUN/Creatinine Ratio 33.8 H Glucose 129 H Calcium 9.8 Total Bilirubin 0.3 Conjugated Bilirubin Unconjugated Bilirubin AST 50 H ALT 91 H Alkaline Phosphatase 100 Total Protein 8.5 H Albumin 5.0 Globulin 3.5 Albumin/Globulin Ratio 1.4 Triglycerides Cholesterol LDL Cholesterol, Calc HDL Cholesterol Lipase 23501 H SARS-CoV-2 (PCR) Negative 12/08/21 12/08/21 06:06 06:06 WBC 13.9 H RBC 4.47 Hgb 14.3 Hct 40.5 MCV 90.5 MCH 32.0 MCHC 35.3 RDW 12.8 Plt Count 321 Neut % (Auto) 90.0 H Lymph % (Auto) 4.9 L [place] % (Auto) 4.9 Eos % (Auto) 0.0 L Baso % (Auto) 0.2 Neut # (Auto) 70358 H Lymph # (Auto) 700 L [place] # (Auto) 700 Eos # (Auto) 0 Baso # (Auto) 0 Sodium 140 Potassium 4.1 Chloride 104 Carbon Dioxide 23 BUN 16 Creatinine 0.46 L Estimated GFR > 60 BUN/Creatinine Ratio 34.8 H Glucose 144 H Calcium 8.6 Total Bilirubin 0.4 Conjugated Bilirubin 0.0 Unconjugated Bilirubin 0.3 AST 37 H ALT 68 H Alkaline Phosphatase 83 Total Protein 7.2 Albumin 4.2 Globulin 3.0 Albumin/Globulin Ratio 1.4 Triglycerides 139 Cholesterol 271 H LDL Cholesterol, Calc 206 H HDL Cholesterol 37 L Lipase SARS-CoV-2 (PCR) [facility] Medical History Essential hypertension Healthy adult Pancreatitis Surgical History History of hysterectomy Family History (Updated 12/08/21 @ 04:19 by SAMIRA Elias) Mother Interstitial cystitis Fibromyalgia Social History household members: spouse Smoking Status: Never smoker Assessment & Plan Assessment & Plan narrative: # Idiopathic recurrent acute pancreatitis, present on admission, improving -lipase >45,000 on admission, CT abd pelvis with peripancreatic edema and fat stranding -unclear precipitating factor as patient had cholecystectomy for gallstone pancreatitis in past -Abd US without biliary dilitation and post cholecystectomy -Advancing diet as currently tolerating clears -continue NS 150cc/hr -repeat lipase 9000 -recommend outpatient GI f/u for ongoing managment to include possible MRCP to rule out stricture -continue dilaudid 1mg q3h PRN, toradol 30mg IV q6h PRN and norco 10mg q4h PRN -laxative PRN to prevent constipation # Hypertension, chronic -continue home losartan 50 mg daily VTE Prophylaxis: Enoxaparin 40 mg subQ once daily Dispo: Likely dc home on 12/09. Code status: Full code as discussed with the patient who identifies her , Dileep as her surrogate and POA. COVID-19 COVID-19 status: Negative Result date/Date tested (Pos, Neg/Pending): 12/08/21 Time Spent With Patient Critical Care time: I spent a total of [] minutes of critical care time on this patient's care today; this time is exclusive of procedural time. Quality VTE Deep Vein Thrombosis/Pulmonary Embolism Present on Admission: No
--- NOTE | 2021-12-08 08:53 | DI.US.S_ITS ---
PROCEDURE: US ABDOMEN LIMITED INDICATIONS: PANCREATITIS TECHNIQUE: Real-time focused scanning was performed of the abdomen, with image documentation. COMPARISON: [facility], US, US ABDOMEN LIMITED, 12/21/2020, 10:44. [facility], CT, CT ABDOMEN PELVIS W CON, 12/08/2021, 0:12. FINDINGS: The liver demonstrates mildly enlarged size. The liver demonstrates generalized mildly increased echogenicity. This decreases ultrasound sensitivity for detection of hepatic masses. The gallbladder has been removed. There is no biliary dilatation, the common bile duct measures 9 mm. The visualized pancreas is unremarkable by ultrasound. No focal peripancreatic fluid collections are seen. IMPRESSION: Unremarkable pancreas by ultrasound. Status post cholecystectomy, without biliary dilatation. Dictated by: Sandro Peralta M.D. on 12/08/2021 at 9:48 Approved by: Sandro Peralta M.D. on 12/08/2021 at 9:50
[2021-12-08] MEDS: LOSARTAN 50 MG TABLET PO (09:06)
--- NOTE | 2021-12-08 09:22 | CM.DANOTE ---
DCP: Case received, EMR reviewed and met with patient. Introduced self and role. Was able to obtain information regarding patient's baseline activity status prior to hospitalization. DCP assessment completed with information currently available. Patient is a 56 year old female who admitted early this morning to the care of the hospitalist team. PCP: Dr. Gay. Payer: confirmed: [facility] Patient came to the hospital via private vehicle secondary to having increased abdominal pain. Patient has history of pancreatitis. Her lipase was 45,000. Patient holds current diagnosis of acute pancreatitis. Met with patient in her room. She is alert and oriented, sitting up in bed, was having abdominal discomfort. Patient stated that she has had pancreatitis before. She resides here in [place] with her spouse, Gigi. She is independent at her baseline. P: DCP to continue to follow. Patient should be able to discharge home when deemed medically stable. Ana Laura Brody RN/Boxing Promoter Discharge Planning/Care Management CM Discharge Assessment Start: 12/08/21 09:21 Freq: Status: Active Protocol: Document 12/08/21 09:21 (Rec: 12/08/21 09:22 [id number]) Discharge Planning Assessment Assigned Machine Scallop Cutter Ana Laura Brody RN/Boxing Promoter Advance Directives? No Advance Directives on File No History Provided By Patient,Medical Record Prior Living Arrangements House Household Members spouse Type of transporation used prior to Drives own vehicle admit Independent with ADL's Yes Is patient alert and oriented? Yes Caregiver for Another No Barriers to Discharge No Discharge Plan Home Transportation Arrangement Spouse Referrals Initiated None needed Whiteboard Updated in Patient Room with Yes name and ext. # of Machine Scallop Cutter Review Status In Process Next Review Type Continued Stay Review
[2021-12-08 09:41] LABS: Lipase 9144 U/L (23-300)
[2021-12-08] MEDS: ENOXAPARIN 40 MG/0.4 ML SYRINGE SUBCUT (09:45)
[2021-12-08] MEDS: KETOROLAC 30 MG/ML VIAL IV ×2 (10:59→17:12)
[2021-12-08] MEDS: SENNOSIDES 8.6 MG TABLET PO (11:31)
[2021-12-08] MEDS: polyethylene glycoL 3350 17 GM POWD.PACK PO (11:31)
--- NOTE | 2021-12-08 11:49 | PC.NURSE ---
BP elevated this am 193/104, HR 103, pain rated 9/10. 45 min after administration of losartan and pain medication, BP still elevated 177/100, HR 104, pain level now 4/10. Dr. Martinez aware, no change to medications at this time.
[2021-12-08] MEDS: HYDROCODONE/ACET 10/325 TABLET 1 TAB PO ×2 (15:45→20:47)
[2021-12-09] VITALS (8 sets, daily range): BP systolic 142–157; BP diastolic 78–85; PULSE 101–111; RESP 16–18; TEMP 35.9–36.8; O2SAT 94–98
[2021-12-09] MEDS: KETOROLAC 30 MG/ML VIAL IV ×3 (00:22→20:34)
[2021-12-09] MEDS: HYDROCODONE/ACET 10/325 TABLET 1 TAB PO ×2 (03:28→08:51)
[2021-12-09 06:16] LABS: Add Manual Diff / Slide Review NO; Basophils Absolute Auto 0 /uL (0-100); Basophils Percent Auto 0.2 % (0-2); Eosinophils Absolute Auto 0 /uL (0-450); Eosinophils Percent Auto 0.7 % (2-4); Hematocrit 36.1 % (36-46); Hemoglobin 12.5 g/dL (12.0-16.0); Lymphocytes Absolute Auto 1500 /uL (1100-4500); Lymphocytes Percent Auto 21.9 % (25-40); Mean Corpuscular HGB Conc 34.6 % (30-36); Mean Corpuscular Volume 92.4 fL (80-100); Monocytes Absolute Auto 400 /uL (0-900); Neutrophils Absolute Auto 5000 /uL (1500-7000); Neutrophils Percent Auto 71.2 % (50-75); Platelet Count 260 X10^3/uL (150-400); Red Blood Cell Count 3.91 X10^6/uL (4.0-5.2); Red Cell Distribution Width 12.8 % (11.6-14.8); White Blood Cell Count 7.1 X10^3/uL (4.5-11.0)
[2021-12-09 06:23] LABS: Alanine Aminotransferase 46 IU/L (<35); Albumin 3.7 g/dL (3.5-5.0); Albumin Globulin Ratio 1.4 (1.0-2.8); Alkaline Phosphatase 61 U/L (38-126); Aspartate Aminotransferase 26 IU/L (14-36); Bilirubin Total 0.5 mg/dL (0.2-1.3); Blood Urea Nitrogen 12 mg/dL (7-17); Calcium 8.5 mg/dL (8.4-10.2); Carbon Dioxide 28 mmol/L (22-32); Chloride 102 mmol/L (98-107); Estimated Glomerular Filt Rate > 60 mL/min (>60); Globulin 2.7 g/dL (1.7-4.1); Glucose 111 mg/dL (70-100); HEMOLYSIS < 15 (0-50); Potassium 4.1 mmol/L (3.4-5.1); Sodium 138 mmol/L (137-145); Total Protein 6.4 g/dL (6.3-8.2)
[2021-12-09] MEDS: LOSARTAN 50 MG TABLET PO (08:43)
[2021-12-09] MEDS: ENOXAPARIN 40 MG/0.4 ML SYRINGE SUBCUT (08:44)
[2021-12-09] MEDS: OXYCODONE/ACETAMINOPHEN 5/325 TABLET 2 TAB PO ×4 (11:48→21:36)
[2021-12-09] MEDS: LACTATED RINGERS 1,000 ML 250 ML IV ×2 (11:48→17:54)
--- NOTE | 2021-12-09 12:02 | PC.NURSE ---
NO ADMISSION PHYSICAL ASSESSMENT COMPLETED ON THIS PATIENT
--- NOTE | 2021-12-09 14:05 | PM.PN.1 ---
Subjective Subjective Date Patient Seen: 12/09/21 Time Patient Seen: 08:00 Interval history: Patient continuing to have epigastric pain and requiring IV dilaudid. Tolerated breakfast without excess pain or NV. Exam Vital Signs (past 8 hours): - 12/09/21 08:43 12/09/21 10:00 12/09/21 12:00 Temperature 97.8 F Pulse Rate 111 H Respiratory Rate 18 Blood Pressure 151/85 H 157/83 H Pulse Oximetry 98 94 Oxygen Delivery Method Room Air Oxygen Flow Rate 0 Oxygen Delivery Method Room Air Oxygen Flow Rate 0 Narrative Exam Narrative: Gen: Alert, oriented, well-nourished and overweight 56 y.o. female, NAD HEENT: normocephalic, atraumatic, conjunctiva clear, sclera non-icteric, oral mucosa pink and moist Neck: supple, full ROM, no JVD, trachea is midline Resp: Lungs CTA, non-labored breathing CV: RRR, no murmur or rubs Abd: soft, tender to palpation at epigastrium, normoactive BTs Skin: no lesions or rashes, dry and intact Neuro: Alert and oriented X 4 w/no focal deficits. Speech clear and coherent. Extremities: moves all 4 extremities, is ambulatory, negative Reginaldo?s sign Psyche: normal mood and affect. Objective Labs Result Diagrams: 12/09/21 05:54 12/09/21 05:54 Labs: Laboratory Results - last 24 hr 12/09/21 12/09/21 05:54 05:54 WBC 7.1 RBC 3.91 L Hgb 12.5 Hct 36.1 MCV 92.4 MCH 32.0 MCHC 34.6 RDW 12.8 Plt Count 260 Neut % (Auto) 71.2 Lymph % (Auto) 21.9 L [place] % (Auto) 6.0 Eos % (Auto) 0.7 L Baso % (Auto) 0.2 Neut # (Auto) 5000 Lymph # (Auto) 1500 [place] # (Auto) 400 Eos # (Auto) 0 Baso # (Auto) 0 Sodium 138 Potassium 4.1 Chloride 102 Carbon Dioxide 28 BUN 12 Creatinine 0.60 Estimated GFR > 60 BUN/Creatinine Ratio 20.0 Glucose 111 H Calcium 8.5 Total Bilirubin 0.5 AST 26 ALT 46 H Alkaline Phosphatase 61 Total Protein 6.4 Albumin 3.7 Globulin 2.7 Albumin/Globulin Ratio 1.4 PFSH Medical History Essential hypertension Healthy adult Pancreatitis Surgical History History of hysterectomy Family History (Updated 12/08/21 @ 04:19 by SAMIRA Elias) Mother Interstitial cystitis Fibromyalgia Social History household members: spouse Smoking Status: Never smoker Assessment & Plan Assessment & Plan narrative: # Idiopathic recurrent acute pancreatitis, present on admission, improving -lipase >45,000 on admission, CT abd pelvis with peripancreatic edema and fat stranding -unclear precipitating factor as patient had cholecystectomy for gallstone pancreatitis in past -Abd US without biliary dilitation and post cholecystectomy -Now tolerating solids -repeat lipase 9000 -recommend outpatient GI f/u for ongoing managment to include possible MRCP to rule out stricture -continue dilaudid 1mg q3h PRN, toradol 30mg IV q6h PRN and change norco to oxy 10mg q4h PRN -laxative PRN to prevent constipation -start increased LR dose of 250cc/hr # Hypertension, chronic -continue home losartan 50 mg daily VTE Prophylaxis: Enoxaparin 40 mg subQ once daily Dispo: Likely dc home on 12/10 once able to tolerate po pain meds and be off IV pain meds. Code status: Full code as discussed with the patient who identifies her , Dileep as her surrogate and POA. COVID-19 COVID-19 status: Negative Result date/Date tested (Pos, Neg/Pending): 12/08/21 Time Spent With Patient Critical Care time: I spent a total of [] minutes of critical care time on this patient's care today; this time is exclusive of procedural time. Quality VTE Deep Vein Thrombosis/Pulmonary Embolism Present on Admission: No
--- NOTE | 2021-12-09 15:06 | PC.NURSE ---
Pt states mild discomfort across abodmen Med w/oxy w/ good relief. IVF infusing as per MD orders Call light w/in reach, pt calls appropriately for needs. Continue w/plan of care.
[2021-12-10] VITALS: BP 142/73; PULSE 98; RESP 17; TEMP 36.1; O2SAT 97
[2021-12-10] MEDS: OXYCODONE/ACETAMINOPHEN 5/325 TABLET 2 TAB PO (00:49)
[2021-12-10] MEDS: LACTATED RINGERS 1,000 ML 250 ML IV ×2 (02:10→06:01)
[2021-12-10 04:00] VITALS: O2SAT 97
[2021-12-10] MEDS: OXYCODONE IR 10 MG TABLET PO (04:50)
[2021-12-10 06:00] VITALS: BP 144/79; PULSE 98; RESP 18; TEMP 35.9; O2SAT 94
[2021-12-10 08:10] VITALS: BP 144/79; PULSE 98
[2021-12-10] MEDS: ENOXAPARIN 40 MG/0.4 ML SYRINGE SUBCUT (08:10)
[2021-12-10] MEDS: LOSARTAN 50 MG TABLET PO (08:10)
[2021-12-10] MEDS: HYDROMORPHONE 1 MG INJ IV (08:35)
[2021-12-10 10:00] VITALS: O2SAT 98
--- NOTE | 2021-12-10 10:59 | PM.DS.1 ---
History of Present Illness History of Present Illness Date Patient Seen: 12/10/21 Time Patient Seen: 10:54 Chief complaint: thinks pancreatitis flare Narrative: Gracie Hawthorne is a 56 y.o. non-drinking female with a prior history of gallstone related pancreatitis with hypertension was in her usual state of health and having had dinner with friends yesterday stated she felt off, threw up and developed mid epigastric pain. She had a bout of pancreatitis almost one year ago, was hospitalized and underwent laproscopic cholecystectomy with an interoperative cholangiogram. She states this felt exactly the same as last year. She denies fever, sweats, or chills, shortness of breath, dysurea, diarrhea or constipation. Denies neuropathy or swelling of her upper or lower extremities. CT of the chest abdomen and pelvis indicated peripancreatic fat stranding and fluid consistent with interstitial edematous pancreatitis with no evidence of necrosis.? She has a number of ovarian cyst noted.? She is afebrile, blood pressure 180/84, heart rate 88, respiratory rate 17, oxygen saturation of 90% on room air she weighs 89.5 kg with a BMI of 30.? CBC is unremarkable, just a mildly elevated glucose of 129, AST is 50 ALT 91 and lipase is over 45,000, COVID-19 PCR is negative. Discharge Providers Provider Date of admission: 12/08/21 02:11 Discharge Date: 12/10/21 Primary care physician: Edwin Gay MD Discharge provider: Chao Martinez DO Summary Hospital Course Discharge Diagnosis: # Idiopathic recurrent acute pancreatitis, present on admission, improving -lipase >45,000 on admission, CT abd pelvis with peripancreatic edema and fat stranding -unclear precipitating factor as patient had cholecystectomy for gallstone pancreatitis in past, triglycerides and calcium normal -Abd US without biliary dilitation and shows post cholecystectomy -Advanced diet to solids -received IVF at 250cc/hr -repeat lipase 9000 -recommend outpatient GI f/u for ongoing managment to include possible MRCP or EUS to rule out stricture -received dilaudid 1mg q3h PRN, toradol 30mg IV q6h PRN and norco 10mg q4h PRN -laxative PRN to prevent constipation # Hypertension, chronic -continue home losartan 50 mg daily Hospital Course: Patient admitted for acute idiopathic pancreatitis with lipase 45k, epigastric pain and CT evidence of fat stranding and peripancreatic edema. Patient made NPO, given IVF and pain meds. Abd US without biliary diliation, stones or sludge. Lipase dropped to 9k and diet advanced over 3 days to solids. Her pain improved to where she was tolerating po pain meds so was discharged on oxy 10mg q4h with tylenol and ibuprofen PRN OTC to take. Patient will f/u with PCP for referral to GI for evaluation. Time Spent with Patient Time spent: Greater than 30 minutes Exam Vital Signs (past 8 hours): - 12/09/21 00:00 12/09/21 06:00 Temperature 97.4 F L 96.7 F L Pulse Rate 104 H 101 H Respiratory Rate 16 17 Blood Pressure 156/78 H 151/85 H Pulse Oximetry 97 96 Oxygen Flow Rate 0 0 Oxygen Delivery Method Room Air Oxygen Flow Rate 0 Narrative Exam Narrative: Gen: Alert, oriented, well-nourished and overweight 56 y.o. female, NAD HEENT: normocephalic, atraumatic, conjunctiva clear, sclera non-icteric, oral mucosa pink and moist Neck: supple, full ROM, no JVD, trachea is midline Resp: Lungs CTA, non-labored breathing CV: RRR, no murmur or rubs Abd: soft, tender to palpation at epigastrium but improved, normoactive BTs Skin: no lesions or rashes, dry and intact Neuro: Alert and oriented X 4 w/no focal deficits. Speech clear and coherent. Extremities: moves all 4 extremities, is ambulatory, negative Reginaldo?s sign Psyche: normal mood and affect. Objective Labs Result Diagrams: 12/09/21 05:54 12/09/21 05:54 Labs: Laboratory Results - last 24 hr 12/08/21 12/09/21 12/09/21 06:06 05:54 05:54 WBC 7.1 RBC 3.91 L Hgb 12.5 Hct 36.1 MCV 92.4 MCH 32.0 MCHC 34.6 RDW 12.8 Plt Count 260 Neut % (Auto) 71.2 Lymph % (Auto) 21.9 L [place] % (Auto) 6.0 Eos % (Auto) 0.7 L Baso % (Auto) 0.2 Neut # (Auto) 5000 Lymph # (Auto) 1500 [place] # (Auto) 400 Eos # (Auto) 0 Baso # (Auto) 0 Sodium 138 Potassium 4.1 Chloride 102 Carbon Dioxide 28 BUN 12 Creatinine 0.60 Estimated GFR > 60 BUN/Creatinine Ratio 20.0 Glucose 111 H Calcium 8.5 Total Bilirubin 0.5 AST 26 ALT 46 H Alkaline Phosphatase 61 Total Protein 6.4 Albumin 3.7 Globulin 2.7 Albumin/Globulin Ratio 1.4 Lipase 9144 H D PFSH Medical History Essential hypertension Healthy adult Pancreatitis Surgical History History of hysterectomy Family History Mother Interstitial cystitis Fibromyalgia Social History household members: spouse Smoking Status: Never smoker Discharge Plan Discharge Plan Patient Disposition: Home Provider Discharge Comment: You were admitted with pancreatitis. It is unclear why this happened again when you had your gallbladder removed from a prior occurrence. You should get a GI referral from your PCP for further evaluation. Our scans didn't show any clear cause. You improved and were able to tolerate food again and the pain got better to where I think you will get by with oral pain meds which I've sent to your pharmacy. Take this as needed with 1000mg tylenol 3x per day and 600-800mg ibuprofen 3x per day. This should help your pain be managed at home. Discharge orders & Medications Prescriptions: New oxycodone 10 mg Tablet 10 mg PO Q4H PRN (Reason: Pain, Severe (7-10)) Qty: 30 0RF Continued losartan 50 mg tablet 50 mg PO DAILY Label Comments: take 1 tablet by mouth once daily Follow up/Referrals: Edwin Gay MD [Primary Care Provider] - Discharge Data Primary Care Provider: Edwin Gay Quality VTE Deep Vein Thrombosis/Pulmonary Embolism Present on Admission: No
--- NOTE | 2021-12-10 11:13 | PC.NURSE ---
Pt is AxOx4, independent and cooperative. VSS, pt c/o pain abd and recieved PRN IV Dilaudid 1mg with good effect. Pt is tolerating food and eating and drinking. IV fluid is stopped. Pt's pain is controlled well with her PO pain med so pt is now ready to d/c. D/c instruction given to pt and verbalized understanding.
== END 2021-12-10 11:17 | disposition home or self-care (01) | DRG 440 ==
LOC: ED 23:40 → AC 12-08 02:49
PROVIDERS: Student in an Organized Health Care Education/Training Program; Admitting Provider Nurse Practitioner Family; Emergency Provider Emergency Medicine; Family Provider Registered Nurse; PCP Internal Medicine; Referring Provider Emergency Medicine; Visit Provider Nurse Practitioner Family
DX: K85.00 Idiopathic acute pancreatitis without necrosis or infection (principal); I10 Essential (primary) hypertension; Z20.822 Contact with and (suspected) exposure to COVID-19
CPT/HCPCS: 36415; 74177; 76705; 80048; 80053; 80061; 80076; 83690; 85025; 87635; 96374; 96375; 99284; C9803; J1170; J1650; J1885; J2270; J2405; J7050; Q9967

== ENCOUNTER 2023-02-03 08:12 | Inpatient (IN) | payer OTHER, SELFPAY ==
[2023-02-03] VITALS (45 sets, daily range): BP systolic 147–210; BP diastolic 61–111; PULSE 93–119; RESP 8–30; TEMP 36.5–37.5; O2SAT 86–98; BMI 29.0
--- NOTE | 2023-02-03 08:24 | ED_ITS ---
HPI - Skin/Abscess/Foreign Bdy General Chief complaint: Skin/Abscess/Foreign Body Stated complaint: just had biopsy, pain in back due to tumor Time Seen by Provider: 02/03/23 08:24 Source: patient, RN notes reviewed and old records reviewed History of Present Illness HPI narrative: This is a 57-year-old female with recently diagnosed rectal cancer with metastases. Patient had a biopsy a week and a half ago at [facility] she is had some persistent pain which has been increasing in moving more upward in the abdomen since then. Patient states she is been taking Clarkrange 2 tablets every 4 hours for pain and ran out in the last day and has been increasingly uncomfortable. She denies fevers but has felt generally unwell like she might be sick she is felt fatigued, she is felt short of breath she denies any chest pain or pressure. No syncope but has felt a little lightheaded. Denies any nausea or vomiting. She states she is been stooling regularly although a little constipated. She does note blood in her stool which she states has been there for some time. She does not describe increasing bleeding or large clots. No new urinary symptoms. She does appear pale and her significant other appreciates some changes well. Patient states her blood pressures been quite high her primary care physician started her metoprolol 50 mg daily and increase to 200 mg she was feeling very lightheaded so she only took 50 mg today. Her only medication so far Clarkrange and metoprolol. She states she is had prior cholecystectomy and hysterectomy. Patient states no tobacco, alcohol or illicit. She does have allergies to sulfa and amoxicillin. Dr. Sue cleary as her primary care. She is been getting her oncology care through [facility] and has not appointment with the oncologist upcoming in the next week. Related Data Home Medications Medication Instructions Recorded Confirmed metoprolol succinate 50 mg 50 mg PO DAILY 02/03/23 02/03/23 tablet,extended release 24 hr Previous Rx's Medication Instructions Recorded oxycodone 10 mg tablet 10 mg PO Q4H PRN Pain, Severe 12/10/21 (7-10) #30 tabs Allergies Allergy/AdvReac Type Severity Reaction Status Date / Time amoxicillin AdvReac Intermediate Diarrhea Verified 02/03/23 08:34 Sulfa (Sulfonamide AdvReac Intermediate Nausea Verified 02/03/23 08:34 Antibiotics) Review of Systems Review of Systems ROS Unobtainable: All systems reviewed & are unremarkable except as noted in HPI and below Patient History Medical History Essential hypertension Pancreatitis Healthy adult Surgical History History of hysterectomy Family History Mother Interstitial cystitis Fibromyalgia Social History household members: spouse Smoking Status: Never smoker Smoking Status: Never smoker alcohol intake frequency: holidays/special occasions only Substance Use Type: does not use Exam Narrative Exam Narrative: GENERAL: Alert and oriented x three, pale female in mild distress. HEENT: Head normocephalic, atraumatic, EOMI, pupils reactive, face symmetric, moist mucous membranes NECK: Supple, full range of motion CARDIOVASCULAR: Tachycardic but regular rate and rhythm without murmurs, rubs or gallops. No JVD. No swelling bilateral lower extremities. RESPIRATORY: Breath sounds equal bilaterally, no wheezes rales or rhonchi. No tachypnea or accessory muscle use. Patient's speaks in full sentences. ABDOMEN: Soft, nontender. Nondistended. Normoactive bowel sounds all 4 quadrants. No guarding or rebound, rigidity, no mass : No CVA tenderness EXTREMITIES: Normal range of motion, no clubbing or edema. Neurovascularly intact. NEUROLOGICAL: Cranial nerves II through XII grossly intact. Moving all extremities SKIN: Warm, dry, no petechiae, no rashes or lesions. Initial Vital Signs Initial Vital Signs: Vital Signs Temperature 97.7 F 02/03/23 08:22 Pulse Rate 119 H 02/03/23 08:22 Respiratory Rate 18 02/03/23 08:22 Blood Pressure 196/96 H 02/03/23 08:22 Pulse Oximetry 96 02/03/23 08:22 Oxygen Delivery Method Room Air 02/03/23 08:22 Course Orders Ordered: ED Orders 02/03/23 08:34 CT abdomen pelvis w con Stat XR chest 1V Stat EKG-12 Lead Stat 02/03/23 09:05 Complete Blood Count AUTO DIFF Stat Comprehensive Metabolic Panel Stat Lactate (Lactic Acid) Stat NT-proBNP (BNP-Adult 18+) Stat PRBC [Packed Cells] Stat Procalcitonin Stat Troponin & CK Cardiac Panel Stat Type and Screen Stat 02/03/23 09:32 Blood Culture Stat 02/03/23 13:56 CT angio chest PE protocol Stat Acetaminophen (Acetaminophen 325 Mg Tablet) 650 mg PO Q6H PRN PRN Reason: Fever/Mild Pain (1-3) Apixaban (Apixaban 5 Mg Tablet) 10 mg PO BID TOM Stop: 02/10/23 09:01 Gabapentin (Gabapentin 300 Mg Capsule) 300 mg PO BEDTIME TOM Hydromorphone HCl (Hydromorphone 0.5 Mg Inj) 0.5 mg IV Q4H PRN PRN Reason: Pain, Severe (7-10) Labetalol HCl (Labetalol 20 Mg/4 Ml Syringe) 10 mg IV Q5MIN PRN PRN Reason: SBP >180 or DBP >110 Lorazepam (Lorazepam 0.5 Mg Tablet) 0.5 mg PO Q6HR PRN PRN Reason: Anxiety Losartan Potassium (Losartan 50 Mg Tablet) 50 mg PO BID TOM Melatonin (Melatonin 3 Mg Tablet) 6 mg PO BEDTIME PRN PRN Reason: Insomnia Metoprolol Succinate (Metoprolol Er 50 Mg Tablet) 50 mg PO DAILY TOM Naloxone HCl (Naloxone 0.4 Mg/Ml Vial) 0.2 mg IV Q2MIN PRN PRN Reason: Opiate Reversal Ondansetron HCl (Ondansetron 4 Mg/2 Ml Inj) 4 mg IV Q4HR PRN PRN Reason: [place] Oxycodone HCl (Oxycodone Ir 5 Mg Tablet) 5 mg PO Q4HR PRN PRN Reason: Pain, Moderate (4-6) Oxycodone HCl (Oxycodone Ir 10 Mg Tablet) 10 mg PO Q4H PRN PRN Reason: Pain, Severe (7-10) Polyethylene Glycol (Polyethylene Glycol 3350 17 Gm Powd.Pack) 17 gm PO DAILY PRN PRN Reason: Constipation Sennosides (Sennosides 8.6 Mg Tablet) 8.6 mg PO BID PRN PRN Reason: Constipation Discontinued Medications Dabigatran (Dabigatran 75 Mg Capsule) 150 mg PO NOW ONE Stop: 02/03/23 14:41 Last Admin: 02/03/23 14:57 Dose: 150 mg Documented By: DOMINGA Sodium Chloride (Normal Saline 0.9%) 1,000 mls @ 1,000 mls/hr IV BOLUS ONE Stop: 02/03/23 11:56 Last Infusion: 02/03/23 12:06 Dose: Infused Documented By: Admin: 02/03/23 11:02 Dose: 1,000 mls/hr Documented By: YURIDIA Acetaminophen (Ofirmev) 1,000 mg in 100 mls @ 400 mls/hr IV NOW ONE Stop: 02/03/23 17:20 Acetaminophen (Ofirmev) 1,000 mg in 100 mls @ 400 mls/hr IV NOW ONE Stop: 02/03/23 13:37 Last Infusion: 02/03/23 13:50 Dose: Infused Documented By: Admin: 02/03/23 13:31 Dose: 400 mls/hr Documented By: GWENDOLYN Lorazepam (Lorazepam 2 Mg/Ml Inj) 0.5 mg IV Q6HR PRN PRN Reason: Anxiety Losartan Potassium (Losartan 50 Mg Tablet) 50 mg PO DAILY TOM Morphine Sulfate (Morphine 4 Mg/Ml Inj) 4 mg IV NOW ONE Stop: 02/03/23 08:36 Last Admin: 02/03/23 09:03 Dose: 4 mg Documented By: YAEL Oxycodone HCl (Oxycodone Ir 5 Mg Tablet) 10 mg PO NOW ONE Stop: 02/03/23 10:31 Last Admin: 02/03/23 10:34 Dose: 10 mg Documented By: YAEL Vital Signs Vital signs: Vital Signs - 8 hr 02/03/23 08:22 02/03/23 08:42 02/03/23 08:46 Temperature 97.7 F Pulse Rate 119 H 119 H 113 H Respiratory Rate 18 27 H 8 L Blood Pressure 196/96 H Pulse Oximetry 96 91 Oxygen Delivery Method Room Air Room Air Oxygen Flow Rate 02/03/23 08:46 02/03/23 09:00 02/03/23 09:25 Temperature Pulse Rate 112 H Respiratory Rate Blood Pressure 166/81 H Pulse Oximetry 86 L Oxygen Delivery Method Room Air Oxygen Flow Rate 02/03/23 09:40 02/03/23 09:41 02/03/23 09:42 Temperature Pulse Rate 102 H 101 H Respiratory Rate 20 Blood Pressure Pulse Oximetry 96 96 96 Oxygen Delivery Method Nasal Cannula Nasal Cannula Oxygen Flow Rate 2 2 02/03/23 09:42 02/03/23 10:00 02/03/23 10:30 Temperature Pulse Rate 100 H 99 H Respiratory Rate 20 22 Blood Pressure 183/86 H Pulse Oximetry 94 94 Oxygen Delivery Method Nasal Cannula Oxygen Flow Rate 2 02/03/23 10:45 02/03/23 10:46 02/03/23 10:46 Temperature Pulse Rate Respiratory Rate 20 22 Blood Pressure 181/83 H Pulse Oximetry 86 L 96 Oxygen Delivery Method Room Air Nasal Cannula Oxygen Flow Rate 2 02/03/23 10:46 02/03/23 11:00 02/03/23 11:01 Temperature Pulse Rate 102 H 98 H 99 H Respiratory Rate 27 H 20 20 Blood Pressure Pulse Oximetry 96 96 97 Oxygen Delivery Method Oxygen Flow Rate 02/03/23 11:01 02/03/23 11:30 02/03/23 11:30 Temperature Pulse Rate 95 H Respiratory Rate 26 H Blood Pressure 189/90 H 184/92 H Pulse Oximetry 96 Oxygen Delivery Method Nasal Cannula Oxygen Flow Rate 2 02/03/23 11:42 02/03/23 11:57 02/03/23 12:00 Temperature 98.9 F Pulse Rate 100 H 97 H 97 H Respiratory Rate 18 30 H Blood Pressure 184/92 H Pulse Oximetry 97 97 Oxygen Delivery Method Nasal Cannula Oxygen Flow Rate 2 02/03/23 12:00 02/03/23 12:01 02/03/23 12:01 Temperature Pulse Rate 99 H Respiratory Rate 24 Blood Pressure 189/100 H 188/98 H Pulse Oximetry 98 Oxygen Delivery Method Nasal Cannula Oxygen Flow Rate 2 02/03/23 12:03 02/03/23 12:10 02/03/23 12:10 Temperature 98.8 F Pulse Rate 97 H 95 H Respiratory Rate 20 17 Blood Pressure 188/98 H 187/95 H Pulse Oximetry 97 Oxygen Delivery Method Oxygen Flow Rate 02/03/23 12:20 02/03/23 12:20 02/03/23 12:30 Temperature Pulse Rate 96 H 97 H Respiratory Rate 19 19 Blood Pressure 176/93 H Pulse Oximetry 96 97 Oxygen Delivery Method Nasal Cannula Oxygen Flow Rate 2 02/03/23 12:30 02/03/23 12:40 02/03/23 12:40 Temperature Pulse Rate 98 H Respiratory Rate 23 Blood Pressure 188/100 H 174/97 H Pulse Oximetry 97 Oxygen Delivery Method Nasal Cannula Oxygen Flow Rate 2 02/03/23 12:50 02/03/23 12:50 02/03/23 13:00 Temperature Pulse Rate 97 H Respiratory Rate 14 Blood Pressure 174/102 H 188/99 H Pulse Oximetry 97 Oxygen Delivery Method Oxygen Flow Rate 02/03/23 13:00 02/03/23 13:10 02/03/23 13:10 Temperature Pulse Rate 96 H 98 H Respiratory Rate 18 21 Blood Pressure 184/99 H Pulse Oximetry 97 97 Oxygen Delivery Method Nasal Cannula Oxygen Flow Rate 2 02/03/23 13:20 02/03/23 13:20 02/03/23 13:30 Temperature Pulse Rate 109 H 100 H Respiratory Rate 19 24 Blood Pressure 190/83 H Pulse Oximetry 90 L 96 Oxygen Delivery Method Oxygen Flow Rate 02/03/23 13:30 02/03/23 13:40 02/03/23 13:40 Temperature Pulse Rate 97 H Respiratory Rate 22 Blood Pressure 194/93 H 189/90 H Pulse Oximetry 97 Oxygen Delivery Method Nasal Cannula Oxygen Flow Rate 2 02/03/23 13:44 02/03/23 13:44 02/03/23 13:47 Temperature 99.5 F Pulse Rate 100 H 100 H Respiratory Rate 24 22 Blood Pressure 191/93 H 191/93 H Pulse Oximetry 92 Oxygen Delivery Method Nasal Cannula Oxygen Flow Rate 1.5 02/03/23 13:50 02/03/23 13:50 02/03/23 14:00 Temperature Pulse Rate 96 H 96 H Respiratory Rate 23 22 Blood Pressure 174/84 H Pulse Oximetry 94 96 Oxygen Delivery Method Oxygen Flow Rate 02/03/23 14:00 02/03/23 14:14 02/03/23 14:14 Temperature Pulse Rate 101 H Respiratory Rate Blood Pressure 181/90 H 174/75 H Pulse Oximetry 96 Oxygen Delivery Method Oxygen Flow Rate 02/03/23 14:20 02/03/23 14:20 02/03/23 14:30 Temperature Pulse Rate 95 H 94 H Respiratory Rate 15 21 Blood Pressure 181/85 H Pulse Oximetry 96 97 Oxygen Delivery Method Oxygen Flow Rate 02/03/23 14:30 02/03/23 14:40 02/03/23 14:40 Temperature Pulse Rate 93 H Respiratory Rate 20 Blood Pressure 162/86 H 176/90 H Pulse Oximetry 97 Oxygen Delivery Method Oxygen Flow Rate MDM - Skin/Abscess/Foreign Bdy Lab Data 02/03/23 09:05 02/03/23 09:05 Labs: Lab Results 02/03/23 Range/Units 09:05 WBC 11.8 H (4.5-11.0) X10^3/uL RBC 2.99 L (4.0-5.2) X10^6/uL Hgb 8.3 L (12.0-16.0) g/dL Hct 24.4 L (36-46) % MCV 81.6 (80-100) fL MCH 27.6 (26-34) PG MCHC 33.9 (30-36) % RDW 13.8 (11.6-14.8) % Plt Count 542 H (150-400) X10^3/uL Neut % (Auto) 85.6 H (50-75) % Lymph % (Auto) 7.2 L (25-40) % [place] % (Auto) 5.3 (3-14) % Eos % (Auto) 1.1 L (2-4) % Baso % (Auto) 0.8 (0-2) % Neut # (Auto) 75102 H (7452-2231) /uL Lymph # (Auto) 800 L (4846-4181) /uL [place] # (Auto) 600 (0-900) /uL Eos # (Auto) 100 (0-450) /uL Baso # (Auto) 100 (0-100) /uL Sodium 138 (137-145) mmol/L Potassium 3.4 (3.4-5.1) mmol/L Chloride 98 (98-107) mmol/L Carbon Dioxide 29 (22-32) mmol/L BUN 11 (7-17) mg/dL Creatinine 0.59 (0.52-1.04) mg/dL Estimated GFR > 60 (>60) mL/min BUN/Creatinine Ratio 18.6 (6-22) Glucose 136 H (70-100) mg/dL Lactate 1.8 (0.7-2.1) mmol/L Calcium 9.7 (8.4-10.2) mg/dL Total Bilirubin 0.5 (0.2-1.3) mg/dL AST 38 H (14-36) IU/L ALT 26 (<35) IU/L Alkaline Phosphatase 111 (38-126) U/L Total Creatine Kinase 37 (30-135) U/L Troponin I < 0.012 (0.01-0.034) ng/mL NT-Pro-B Natriuret Pep 217 H (<125) pg/mL Total Protein 7.9 (6.3-8.2) g/dL Albumin 4.4 (3.5-5.0) g/dL Globulin 3.5 (1.7-4.1) g/dL Albumin/Globulin Ratio 1.3 (1.0-2.8) Procalcitonin 0.10 (<0.5) ng/mL Blood Type O Negative Antibody Screen Negative Crossmatch See Detail Urine Dip Bedside Urine Glucose Negative Bedside Urine Bilirubin - Negative Bedside Urine Ketone - Negative Urine Specific [place] 1.010 Bedside Urine Occult Blood +++ Bedside Urine pH 6.0 Bedside Urine Protein - Negative Bedside Urine Urobilinogen - Negative Bedside Urine Nitrite - Negative Bedside Urine Leukocytes +/- [address] scan - abdomen/pelvis: Radiologist's Impression: [address] [address] [address] Scan Report Signed Patient: Gracie Hawthorne MR#: [id number] : 1965 Acct:[id number] Age/Sex: 57 / F Date of Service: 02/03/23 Loc: ED Accession Number: [id number] Procedure: CT abdomen pelvis w con Ordering Provider: Jagruti Holloway D.O. PROCEDURE: CT ABDOMEN PELVIS W CON INDICATIONS: increasing rectal/abd pain, known rectal ca w/ mets TECHNIQUE: After the administration of oral and intravenous contrast, axial sections were acquired from the lung bases to the pubic symphysis. Coronal and sagittal reformats were performed. For radiation dose reduction, the following was used: automated exposure control, adjustment of mA and/or kV according to patient size. COMPARISON:[facility], CT, CT CHEST ABDOMEN PELVIS WITH CONTRAST, 01/31/2023, 15:44. [facility], CT, CT ABDOMEN PELVIS W CON, 12/08/2021, 0:12. FINDINGS: Image quality: Excellent. Lung bases: Numerous nodular masses throughout the bilateral lungs Heart: No significant findings. ABDOMEN: Liver: Numerous hypodensities throughout the liver Gallbladder: Surgically absent. Biliary ducts: Mild central biliary dilation, a normal finding status post cholecystectomy. Pancreas: No ductal dilation. Spleen: Size is within normal limits. Adrenal Glands: No adrenal nodules. Kidneys and Ureters: No hydronephrosis. No solid mass. No complex renal cystic lesion which requires follow up. Stomach and Bowel: The stomach is and small bowel are unremarkable. At the distal colon at the rectal verge there soft tissue prominence consistent with known rectal carcinoma Peritoneum: No abnormal intraperitoneal fluid. No free air. Ventral Wall: No hernia. Abdominal Nodes: Bilateral pelvic sidewall lymphadenopathy. Vessels: Aorta and inferior vena cava are normal in size. PELVIS: Pelvic Organs: Cystic changes of the bilateral kidneys similar to comparison 2021 Bladder: Unremarkable. Pelvic Nodes: No enlarged lymph nodes. Miscellaneous: No inguinal hernias are seen. Bones: Unremarkable. IMPRESSION: 1. Soft tissue prominence at the rectal verge consistent with known rectal carcinoma. 2. Pelvic sidewall lymphadenopathy. 3. Numerous hypodensities throughout the liver and numerous nodules of the visualized lungs are consistent with metastatic disease. 4. Cystic appearance of the ovaries, unchanged Dictated by: Fran Ceron M.D. on 02/03/2023 at 8:50 Approved by: Fran Ceron M.D. on 02/03/2023 at 8:58 Chest x-ray: Radiologist's Impression: [place] [address] XRay Report Signed Patient: Gracie Hawthorne MR#: [id number] : 1965 Acct:[id number] Age/Sex: 57 / F Date of Service: 02/03/23 Loc: ED Accession Number: [id number] Procedure: XR chest 1V Ordering Provider: Jagruti Holloway D.O. PROCEDURE: XR CHEST 1V INDICATIONS: increasing rectal/abd pain, known rectal ca w/ mets TECHNIQUE: One view of the chest was acquired. COMPARISON: [facility], CT, CT CHEST ABDOMEN PELVIS WITH CONTRAST, 01/31/2023, 15:44. [facility], CR, CHEST 2 VIEW, 12/31/2008, 12:50. FINDINGS: Surgical changes and devices: None. Lungs and pleura: There are multiple nodular opacities throughout the bilateral lungs consistent with known metastatic disease. No pleural effusions or pneumothorax. Mediastinum: Mediastinal lymphadenopathy. Heart size is normal. Bones and chest wall: No suspicious bony lesions. Overlying soft tissues appear unremarkable. IMPRESSION: Multiple nodular densities throughout the bilateral lungs consistent with metastatic disease as seen on comparison CT. Dictated by: Fran Ceron M.D. on 02/03/2023 at 7:50 Approved by: Fran Ceron M.D. on 02/03/2023 at 7:53 CT scan - chest: Radiologist's Impression: [address] [address] [address] Scan Report Signed Patient: Gracie Hawthorne MR#: [id number] : 1965 Acct:[id number] Age/Sex: 57 / F Date of Service: 02/03/23 Loc: ED Accession Number: [id number] Procedure: CT angio chest PE protocol Ordering Provider: Jagruti Holloway D.O. PROCEDURE: CT ANGIO CHEST PE PROTOCOL INDICATIONS: known metastatic cancer, r/o PE TECHNIQUE: After the administration of intravenous contrast, 2 mm thick sections acquired from the pulmonary apices to the posterior costophrenic angles. 3-dimensional maximum intensity projection (MIP) coronal and sagittal reformats were then acquired through the thorax. For radiation dose reduction, the following was used: automated exposure control, adjustment of mA and/or kV according to patient size. COMPARISON: [facility], CT, CT CHEST ABDOMEN PELVIS WITH CONTRAST, 01/31/2023, 15:44. FINDINGS: Image quality: Diagnostic. Pulmonary arteries: Bilateral segmental pulmonary emboli within the interlobar arteries and lower lobe segmental arteries. No evidence of right heart strain. Lungs and pleura: Unchanged numerous nodules throughout the bilateral lungs consistent with metastatic disease. No pleural effusions or pneumothorax. Central and peripheral airways are patent. Mediastinum: Heart size is normal, without pericardial effusion central right hilar lymphadenopathy. Thoracic aorta is normal in caliber and enhancement. Esophagus is normal in caliber, without hiatal hernia. Bones and chest wall: No suspicious bony lesions. Ribs and thoracic spine appear intact throughout. No axillary or supraclavicular adenopathy. No thyroid nodules which require sonographic follow up, per consensus guidelines. Abdomen: Numerous hypodensities throughout the liver consistent with metastatic disease. IMPRESSION: Bilateral segmental pulmonary emboli without evidence of right heart strain. Findings consistent with metastatic disease, unchanged from comparison CT 01/31/2023 Dr. Ceron discussed the above impression with Dr. Holloway at 1:25 p.m. [place] time Dictated by: Fran Ceron M.D. on 02/03/2023 at 13:19 Approved by: Fran Ceron M.D. on 02/03/2023 at 13:27 ECG Data Attestation: I personally reviewed and interpreted this ECG as follows: Interpretation: Sinus tachycardia rate of 111 MS 150 QRS 88 QTC of 503. No acute ST elevation S1 but no T3. No other acute ST changes noted. MDM Narrative Medical decision making narrative: 57-year-old female who presents with complaint of increasingly fatigued, feeling generally unwell and increasing pain patient has recently run out of her [place] she is been taking for her rectal intra abdominal pain with known metastatic rectal cancer which is just recently been diagnosed. Patient appears pale, she is tachycardic, hypertensive, she is pale conjunctivae on examination and has had persistent rectal bleeding with bowel movements. Suspect patient may have significant anemia and plan for labs, type and screen, CT abdomen pelvis she states pain has been slowly ramping up which may just be secondary to her cancer but with recent biopsy would be appropriate to evaluate for any sort of perforation or other changes. Patient did have an additional bloody stool here in the department when they went to urinate. Had about 150mL out. Spoke with Dr. Martinez, hospitalist: Open keeping patient overnight. Plan for 2 units blood does ask for consultation with General surgery. He will reach out to patient oncologist for recommendations. Dr. New, general surgery happy to see patient hospitalized. Dr. Martinez, spoke with Cammy Wellington with [facility] oncology. Recommends 1 unit blood transfusion and DC to see them on Sunday does not feel patient needs hospitalization. Patient receiving transfusion during feeling cramping in legs. Temperature is 98.6F. Patient states very mild she appears comfortable. Does not appear to be having reaction blood appears to be almost completed. Was given a dose of IV Tylenol for pain control. Patient had some persistent hypoxia, it is improving but slowly. CT Angio chest pe protocol ordered. Patient moderate bilateral PEs, no right heart strain. Results called to myself by Radiology Dr. Ceron. Patient case discussed with Cammy Wellington with Oncology recommend oral anticoagulation at this time such as Pradaxa or similar whatever is available at our facility is appropriate. Observation at least overnight and if tolerating well without significant increase in bleeding or requiring additional transfusion can discharge home to see them at office scheduled appointment on Sunday. Discussed with Dr. Martinez, hospitalist who accepts for admission discussed recommendations from Oncology. Critical Care Time Critical Care Time Critical Care Time: Yes Total Critical Care Time: 35 Attestation: The high probability of a clinically significant, sudden or life threatening deterioration of the [cardiac, pulm] system(s) required my full and direct attention, intervention and personal management. The aggregate critical care time was [] minutes. This time is in addition to time spent performing reported procedures but includes the following: [x] Data Review and interpretation [x] Patient assessment and monitoring of vital signs [x] Documentation [x] Medication orders and management Discharge Plan Departure Patient Disposition: Admitted As Inpatient Clinical Impression: Pulmonary embolism, Rectal bleeding, Symptomatic anemia Admit Date/Time: 02/03/23 14:44 Admit Provider: Chao Martinez
--- NOTE | 2023-02-03 08:34 | DI.RAD.S_ITS ---
PROCEDURE: XR CHEST 1V INDICATIONS: increasing rectal/abd pain, known rectal ca w/ mets TECHNIQUE: One view of the chest was acquired. COMPARISON: [facility], CT, CT CHEST ABDOMEN PELVIS WITH CONTRAST, 01/31/2023, 15:44. [facility], CR, CHEST 2 VIEW, 12/31/2008, 12:50. FINDINGS: Surgical changes and devices: None. Lungs and pleura: There are multiple nodular opacities throughout the bilateral lungs consistent with known metastatic disease. No pleural effusions or pneumothorax. Mediastinum: Mediastinal lymphadenopathy. Heart size is normal. Bones and chest wall: No suspicious bony lesions. Overlying soft tissues appear unremarkable. IMPRESSION: Multiple nodular densities throughout the bilateral lungs consistent with metastatic disease as seen on comparison CT. Dictated by: Fran Ceron M.D. on 02/03/2023 at 7:50 Approved by: Fran Ceron M.D. on 02/03/2023 at 7:53
--- NOTE | 2023-02-03 08:34 | DI.CT.S_ITS ---
PROCEDURE: CT ABDOMEN PELVIS W CON INDICATIONS: increasing rectal/abd pain, known rectal ca w/ mets TECHNIQUE: After the administration of oral and intravenous contrast, axial sections were acquired from the lung bases to the pubic symphysis. Coronal and sagittal reformats were performed. For radiation dose reduction, the following was used: automated exposure control, adjustment of mA and/or kV according to patient size. COMPARISON:[facility], CT, CT CHEST ABDOMEN PELVIS WITH CONTRAST, 01/31/2023, 15:44. [facility], CT, CT ABDOMEN PELVIS W CON, 12/08/2021, 0:12. FINDINGS: Image quality: Excellent. Lung bases: Numerous nodular masses throughout the bilateral lungs Heart: No significant findings. ABDOMEN: Liver: Numerous hypodensities throughout the liver Gallbladder: Surgically absent. Biliary ducts: Mild central biliary dilation, a normal finding status post cholecystectomy. Pancreas: No ductal dilation. Spleen: Size is within normal limits. Adrenal Glands: No adrenal nodules. Kidneys and Ureters: No hydronephrosis. No solid mass. No complex renal cystic lesion which requires follow up. Stomach and Bowel: The stomach is and small bowel are unremarkable. At the distal colon at the rectal verge there soft tissue prominence consistent with known rectal carcinoma Peritoneum: No abnormal intraperitoneal fluid. No free air. Ventral Wall: No hernia. Abdominal Nodes: Bilateral pelvic sidewall lymphadenopathy. Vessels: Aorta and inferior vena cava are normal in size. PELVIS: Pelvic Organs: Cystic changes of the bilateral kidneys similar to comparison 2021 Bladder: Unremarkable. Pelvic Nodes: No enlarged lymph nodes. Miscellaneous: No inguinal hernias are seen. Bones: Unremarkable. IMPRESSION: 1. Soft tissue prominence at the rectal verge consistent with known rectal carcinoma. 2. Pelvic sidewall lymphadenopathy. 3. Numerous hypodensities throughout the liver and numerous nodules of the visualized lungs are consistent with metastatic disease. 4. Cystic appearance of the ovaries, unchanged Dictated by: Fran Creon M.D. on 02/03/2023 at 8:50 Approved by: Fran Ceron M.D. on 02/03/2023 at 8:58
[2023-02-03] MEDS: MORPHINE 4 MG/ML INJ IV (09:03)
[2023-02-03 09:15] LABS: Add Manual Diff / Slide Review NO; Basophils Absolute Auto 100 /uL (0-100); Basophils Percent Auto 0.8 % (0-2); Eosinophils Absolute Auto 100 /uL (0-450); Eosinophils Percent Auto 1.1 % (2-4); Hematocrit 24.4 % (36-46); Hemoglobin 8.3 g/dL (12.0-16.0); Lymphocytes Absolute Auto 800 /uL (1100-4500); Lymphocytes Percent Auto 7.2 % (25-40); Mean Corpuscular HGB Conc 33.9 % (30-36); Mean Corpuscular Hemoglobin 27.6 PG (26-34); Mean Corpuscular Volume 81.6 fL (80-100); Monocytes Absolute Auto 600 /uL (0-900); Monocytes Percent Auto 5.3 % (3-14); Neutrophils Absolute Auto 10100 /uL (1500-7000); Neutrophils Percent Auto 85.6 % (50-75); Platelet Count 542 X10^3/uL (150-400); Red Blood Cell Count 2.99 X10^6/uL (4.0-5.2); Red Cell Distribution Width 13.8 % (11.6-14.8); White Blood Cell Count 11.8 X10^3/uL (4.5-11.0)
--- NOTE | 2023-02-03 09:30 | PC.NURSE ---
Pt's verbalizes pain is improving after receiving meds, see MAR. Pt became hypoxic and states when my pain feels better I usually forget to breathe. Pt placed on 2L NC, provider notified.
[2023-02-03 09:33] LABS: Alanine Aminotransferase 26 IU/L (<35); Albumin 4.4 g/dL (3.5-5.0); Albumin Globulin Ratio 1.3 (1.0-2.8); Alkaline Phosphatase 111 U/L (38-126); Aspartate Aminotransferase 38 IU/L (14-36); BUN Creatinine Ratio 18.6 (6-22); Bilirubin Total 0.5 mg/dL (0.2-1.3); Blood Urea Nitrogen 11 mg/dL (7-17); Calcium 9.7 mg/dL (8.4-10.2); Carbon Dioxide 29 mmol/L (22-32); Chloride 98 mmol/L (98-107); Creatine Kinase 37 U/L (30-135); Estimated Glomerular Filt Rate > 60 mL/min (>60); Globulin 3.5 g/dL (1.7-4.1); Glucose 136 mg/dL (70-100); HEMOLYSIS < 15 (0-50); Potassium 3.4 mmol/L (3.4-5.1); Sodium 138 mmol/L (137-145); Total Protein 7.9 g/dL (6.3-8.2)
[2023-02-03 09:34] LABS: Lactate (Lactic Acid) 1.8 mmol/L (0.7-2.1)
[2023-02-03 09:45] LABS: NT-proBNP (BNP-Adult 18+) 217 pg/mL (<125); Troponin I < 0.012 ng/mL (0.01-0.034)
[2023-02-03] MEDS: OXYCODONE IR 5 MG TABLET 10 MG PO (10:34)
[2023-02-03] MEDS: SODIUM CHLORIDE 0.9% 1,000 ML 1000 ML IV (11:02)
--- NOTE | 2023-02-03 11:40 | PM.CN ---
History of Present Illness Consult details Date Patient Seen: 02/03/23 Time Patient Seen: 11:40 Chief complaint: just had biopsy, pain in back due to tumor Reason for consult: bleeding rectal cancer Requesting provider: Lulu Esparza Narrative: Increased fatigue and pain with known rectal cancer. Found to be anemic and in need of transfusion plus pain control. Dr. Silva is here Surgeon and her oncologist appointment at [facility] is Sunday. Meds Home Medications and Allergies Home Medications Medication Instructions Recorded Confirmed Type losartan 50 mg tablet 50 mg PO DAILY 12/08/21 12/08/21 History oxycodone 10 mg tablet 10 mg PO Q4H PRN Pain, Severe 12/10/21 Rx (7-10) #30 tabs Allergies Allergy/AdvReac Type Severity Reaction Status Date / Time amoxicillin AdvReac Intermediate Diarrhea Verified 02/03/23 08:34 Sulfa (Sulfonamide AdvReac Intermediate Nausea Verified 02/03/23 08:34 Antibiotics) Review of Systems Review of Systems ROS: Yes All systems reviewed with the patient and are negative except as otherwise documented Exam Vital Signs (past 8 hours): - 02/03/23 08:22 02/03/23 08:42 02/03/23 08:46 Temperature 97.7 F Pulse Rate 119 H 119 H 113 H Respiratory Rate 18 27 H 8 L Blood Pressure 196/96 H Pulse Oximetry 96 91 Oxygen Delivery Method Room Air Room Air Oxygen Flow Rate 02/03/23 08:46 02/03/23 09:00 02/03/23 09:25 Temperature Pulse Rate 112 H Respiratory Rate Blood Pressure 166/81 H Pulse Oximetry 86 L Oxygen Delivery Method Room Air Oxygen Flow Rate 02/03/23 09:40 02/03/23 09:41 02/03/23 09:42 Temperature Pulse Rate 102 H 101 H Respiratory Rate 20 Blood Pressure Pulse Oximetry 96 96 96 Oxygen Delivery Method Nasal Cannula Nasal Cannula Oxygen Flow Rate 2 2 02/03/23 09:42 02/03/23 10:00 02/03/23 10:30 Temperature Pulse Rate 100 H 99 H Respiratory Rate 20 22 Blood Pressure 183/86 H Pulse Oximetry 94 94 Oxygen Delivery Method Nasal Cannula Oxygen Flow Rate 2 02/03/23 10:45 02/03/23 10:46 02/03/23 10:46 Temperature Pulse Rate Respiratory Rate 20 22 Blood Pressure 181/83 H Pulse Oximetry 86 L 96 Oxygen Delivery Method Room Air Nasal Cannula Oxygen Flow Rate 2 02/03/23 10:46 02/03/23 11:00 02/03/23 11:01 Temperature Pulse Rate 102 H 98 H 99 H Respiratory Rate 27 H 20 20 Blood Pressure Pulse Oximetry 96 96 97 Oxygen Delivery Method Oxygen Flow Rate 02/03/23 11:01 Temperature Pulse Rate Respiratory Rate Blood Pressure 189/90 H Pulse Oximetry Oxygen Delivery Method Oxygen Flow Rate Oxygen Delivery Method Nasal Cannula Oxygen Flow Rate 2 Const General: cooperative, acute distress and ill appearing Nutritional Appearance: average body habitus [facility] Head: normocephalic and atraumatic Ears: hearing grossly normal bilaterally Eyes Sclera: normal sclerae Neck Neck: trachea midline Resp Effort & Inspection: normal respiratory effort and able to speak in complete sentences Cardio Rate: tachycardic Rhythm: regular rhythm GI Palpation: soft Skin General: elasticity normal and pallor Neuro General: patient alert, patient awake and patient oriented x3 Psych Appearance: grossly normal Mental Status: mental status grossly normal Attitude: cooperative Judgment: judgment good Objective Labs 02/03/23 09:05 02/03/23 09:05 Labs: Laboratory Results - last 24 hr 02/03/23 09:05 WBC 11.8 H RBC 2.99 L Hgb 8.3 L Hct 24.4 L MCV 81.6 MCH 27.6 MCHC 33.9 RDW 13.8 Plt Count 542 H Neut % (Auto) 85.6 H Lymph % (Auto) 7.2 L [place] % (Auto) 5.3 Eos % (Auto) 1.1 L Baso % (Auto) 0.8 Neut # (Auto) 27314 H Lymph # (Auto) 800 L [place] # (Auto) 600 Eos # (Auto) 100 Baso # (Auto) 100 Sodium 138 Potassium 3.4 Chloride 98 Carbon Dioxide 29 BUN 11 Creatinine 0.59 Estimated GFR > 60 BUN/Creatinine Ratio 18.6 Glucose 136 H Lactate 1.8 Calcium 9.7 Total Bilirubin 0.5 AST 38 H ALT 26 Alkaline Phosphatase 111 Total Creatine Kinase 37 Troponin I < 0.012 NT-Pro-B Natriuret Pep 217 H Total Protein 7.9 Albumin 4.4 Globulin 3.5 Albumin/Globulin Ratio 1.3 Procalcitonin 0.10 Blood Type O Negative Antibody Screen Negative Crossmatch See Detail [facility] Medical History Essential hypertension Pancreatitis Healthy adult Surgical History History of hysterectomy Family History Mother Interstitial cystitis Fibromyalgia Social History household members: spouse Tobacco & Substance Use Smoking Status: Never smoker Assessment & Plan Assessment & Plan narrative: Anemia, rectal bleeding from known rectal cancer. Plan: supportive care, transfusion per medical team. Her chronic bleeding will start to zach once treatment is started. Time Spent With Patient Time with patient: less than 30 minutes
[2023-02-03] MEDS: ACETAMINOPHEN IV 1,000 MG/100 ML VIAL 400 MG IV (13:31)
--- NOTE | 2023-02-03 13:56 | DI.CT.S_ITS ---
PROCEDURE: CT ANGIO CHEST PE PROTOCOL INDICATIONS: known metastatic cancer, r/o PE TECHNIQUE: After the administration of intravenous contrast, 2 mm thick sections acquired from the pulmonary apices to the posterior costophrenic angles. 3-dimensional maximum intensity projection (MIP) coronal and sagittal reformats were then acquired through the thorax. For radiation dose reduction, the following was used: automated exposure control, adjustment of mA and/or kV according to patient size. COMPARISON: [facility], CT, CT CHEST ABDOMEN PELVIS WITH CONTRAST, 01/31/2023, 15:44. FINDINGS: Image quality: Diagnostic. Pulmonary arteries: Bilateral segmental pulmonary emboli within the interlobar arteries and lower lobe segmental arteries. No evidence of right heart strain. Lungs and pleura: Unchanged numerous nodules throughout the bilateral lungs consistent with metastatic disease. No pleural effusions or pneumothorax. Central and peripheral airways are patent. Mediastinum: Heart size is normal, without pericardial effusion central right hilar lymphadenopathy. Thoracic aorta is normal in caliber and enhancement. Esophagus is normal in caliber, without hiatal hernia. Bones and chest wall: No suspicious bony lesions. Ribs and thoracic spine appear intact throughout. No axillary or supraclavicular adenopathy. No thyroid nodules which require sonographic follow up, per consensus guidelines. Abdomen: Numerous hypodensities throughout the liver consistent with metastatic disease. IMPRESSION: Bilateral segmental pulmonary emboli without evidence of right heart strain. Findings consistent with metastatic disease, unchanged from comparison CT 01/31/2023 Dr. Ceron discussed the above impression with Dr. Holloway at 1:25 p.m. [place] time Dictated by: Fran Ceron M.D. on 02/03/2023 at 13:19 Approved by: Fran Ceron M.D. on 02/03/2023 at 13:27
--- NOTE | 2023-02-03 14:49 | DI.ECHO.S_ITS ---
[place] [facility]---------+ [facility] +---------+ : : [address] : : : : [id number] : : : : Phone: [phone] Echocardiogram Report + + :Name: SEAN COBURN Study Date: 02/04/2023 Height: 67 in : :[facility] ReadingLocation: Weight: 185 lb : : Gender: Female BSA: 2.0 m2 : :: 1965 Age: 57 yrs BP: 151/69 mmHg: :Reason For Study: Pulmonary- Embolism : :Ordering Physician: MARINA, : :KAREN Gomez Performed By: Deirdre Bowers : :Referring: KAREN GRAY : + + Interpretation Summary The ejection fraction is estimated to be 60-65%. Diastolic parameters suggest probable normal left ventricular diastolic function and normal filling pressures. The right ventricle is normal in size and function. There is mild tricuspid regurgitation. The right ventricular systolic pressure is estimated to be at least 54 mmHg based on an estimated right atrial pressure of 8 mm Hg. Procedure: A two-dimensional transthoracic echocardiogram with color flow and Doppler was performed. The study quality was technically adequate. There is no prior echocardiogram noted for this patient. The patient was in sinus rhythm with heart rates between 96-107 bpm during the exam. Left Ventricle: The left ventricle is normal in size and wall thickness. The ejection fraction is estimated to be 60-65%. Diastolic parameters suggest probable normal left ventricular diastolic function and normal filling pressures. Right Ventricle: The right ventricle is normal in size and function. Atria: The left atrial size is normal. Right atrial size is normal. There is no Doppler evidence for an interatrial shunt. Mitral Valve: The mitral valve is normal in structure and function. There is trace mitral regurgitation. Aortic Valve: The aortic valve is trileaflet. The aortic valve opens well. There is no aortic valve stenosis. No aortic regurgitation is present. Tricuspid Valve: The tricuspid valve is normal in structure and function. There is mild tricuspid regurgitation. The right ventricular systolic pressure is estimated to be at least 54 mmHg based on an estimated right atrial pressure of 8 mm Hg. Pulmonic Valve: The pulmonic valve leaflets are thin and pliable; valve motion is normal. There is a trace or physiologic amount of pulmonic regurgitation. Great Vessels: The aortic root is normal size. The dimensions of the ascending aorta are normal. The IVC is dilated (diameter is greater than 2.1 cm) yet it collapses greater than 50% with a sniff. This suggests a right atrial pressure of 8 mm Hg. Pericardium/ Pleura There is no pericardial effusion. There is no pleural effusion. MMode/2D Measurements & Calculations LVIDd: 4.8 cm LVOT diam: 2.0 cm LVIDs: 3.3 cm Ao root diam: 2.8 cm FS: 31.1 % asc Aorta Diam: 3.2 cm IVSd: 1.2 cm Ao Arch Diam (Prox Trans): 2.5 cm LVPWd: 0.85 cm LV muñzo. diameter/BSA (cm/m^2): 2.5 LV sys. diameter/BSA (cm/m^2): 1.7 LA A2 area: 16.8 cm2 RA long axis: 5.2 cm LA A4 area: 17.5 cm2 RA area: 15.8 cm2 LA length (vol): 5.4 cm RA vol: 40.7 ml LA vol: 45.9 ml RA : 20.8 ml/m2 LA vol index: 23.5 ml/m2 IVC diam: 2.7 cm RVD1 (basal): 3.7 cm TAPSE: 2.5 cm Doppler Measurements & Calculations Ao V2 max: 193.3 cm/sec LVOT Max Yoni: 134.5 cm/sec Ao V2 mean: 128.7 cm/sec LV V1 max P.2 mmHg Ao max P.9 mmHg LV V1 VTI: 25.3 cm Ao mean P.3 mmHg RAMIRO(I,D): 2.6 cm2 Ao V2 VTI: 30.1 cm RAMIRO(V,D): 2.2 cm2 sev ratio: 0.84 RAMIRO indexed to BSA (cm^2/m^2): 1.3 MV E max yoni: 103.4 cm/sec TR max yoni: 339.2 cm/sec MV A max yoni: 113.5 cm/sec TR max P.0 mmHg MV E/A: 0.91 PA V2 max: 122.3 cm/sec Med Peak E' Yoni: 9.1 cm/sec PA V2 mean: 85.3 cm/sec E/E' med: 11.3 PA mean P.2 mmHg Lat Peak E' Yoni: 10.5 cm/sec PA pr(Accel): 48.2 mmHg E/E' lat: 9.8 E/e' average: 10.6 MV dec time: 0.17 sec SVLVOT): 78.4 ml Reading Physician:04:27 PM
[2023-02-03] MEDS: DABIGATRAN 75 MG CAPSULE 150 MG PO (14:57)
[2023-02-03 15:28] LABS: Magnesium 2.2 mg/dL (1.6-2.3)
--- NOTE | 2023-02-03 15:36 | P.HP_ITS ---
History of Present Illness History of Present Illness Date Patient Seen: 02/03/23 Time Patient Seen: 17:51 Chief complaint: just had biopsy, pain in back due to tumor Narrative: Gracie Hawthorne is a 57yo F with PMH of HTN, pancreatitis and recent diagnosis of metastatic anal cancer who presents with increased fatigue, malaise and rectal bleeding. Patient states she has been having steady rectal bleeding for weeks which initially was thought to be from hemorrhoids. She had a colonoscopy and biopsy of a rectal mass by Dr. Junior Silva at [facility] about a week ago which unfortunately showed rectal cancer. Had a CT chest/abd/pelvis last week which showed mets to liver and lungs. She meets with Dr. Chen oncology in 2 days on 02/05 to discuss treatment options. She was told after her biopsy if she started feeling worse at all to go to the ED. Since yesterday she has had worsening fatigue and malaise so she came in. Found in our ED to be hypoxic and tachycardic. CTPA showed bilateral PE's. Dr. Chen contacted who recommended starting DOAC and monitoring overnight. He will then f/up and see her on Sunday in clinic for her scheduled appointment. She endorses a chronic cough since having COVID a few months ago. Denies any significant SOB. No CP, NV, syncope, fever/chills or diarrhea. She notes rectal bleeding has been daily and constant with some clots. [facility] Medical History Essential hypertension Pancreatitis Healthy adult Surgical History History of hysterectomy Family History Mother Interstitial cystitis Fibromyalgia Social History household members: spouse Smoking Status: Never smoker Meds Home Medications and Allergies Home Medications Medication Instructions Recorded Confirmed Type oxycodone 10 mg tablet 10 mg PO Q4H PRN Pain, Severe 12/10/21 02/03/23 Rx (7-10) #30 tabs metoprolol succinate 50 mg 50 mg PO DAILY 02/03/23 02/03/23 History tablet,extended release 24 hr Allergies Allergy/AdvReac Type Severity Reaction Status Date / Time amoxicillin AdvReac Intermediate Diarrhea Verified 02/03/23 08:34 Sulfa (Sulfonamide AdvReac Intermediate Nausea Verified 02/03/23 08:34 Antibiotics) Review of Systems Review of Systems Narrative: All other systems reviewed with the patient and are negative unless otherwise stated. Exam Vital Signs (past 8 hours): - 02/03/23 08:22 02/03/23 08:42 02/03/23 08:46 Temperature 97.7 F Pulse Rate 119 H 119 H 113 H Respiratory Rate 18 27 H 8 L Blood Pressure 196/96 H Pulse Oximetry 96 91 Oxygen Delivery Method Room Air Room Air Oxygen Flow Rate 02/03/23 08:46 02/03/23 09:00 02/03/23 09:25 Temperature Pulse Rate 112 H Respiratory Rate Blood Pressure 166/81 H Pulse Oximetry 86 L Oxygen Delivery Method Room Air Oxygen Flow Rate 02/03/23 09:40 02/03/23 09:41 02/03/23 09:42 Temperature Pulse Rate 102 H 101 H Respiratory Rate 20 Blood Pressure Pulse Oximetry 96 96 96 Oxygen Delivery Method Nasal Cannula Nasal Cannula Oxygen Flow Rate 2 2 02/03/23 09:42 02/03/23 10:00 02/03/23 10:30 Temperature Pulse Rate 100 H 99 H Respiratory Rate 20 22 Blood Pressure 183/86 H Pulse Oximetry 94 94 Oxygen Delivery Method Nasal Cannula Oxygen Flow Rate 2 02/03/23 10:45 02/03/23 10:46 02/03/23 10:46 Temperature Pulse Rate Respiratory Rate 20 22 Blood Pressure 181/83 H Pulse Oximetry 86 L 96 Oxygen Delivery Method Room Air Nasal Cannula Oxygen Flow Rate 2 02/03/23 10:46 02/03/23 11:00 02/03/23 11:01 Temperature Pulse Rate 102 H 98 H 99 H Respiratory Rate 27 H 20 20 Blood Pressure Pulse Oximetry 96 96 97 Oxygen Delivery Method Oxygen Flow Rate 02/03/23 11:01 02/03/23 11:30 02/03/23 11:30 Temperature Pulse Rate 95 H Respiratory Rate 26 H Blood Pressure 189/90 H 184/92 H Pulse Oximetry 96 Oxygen Delivery Method Nasal Cannula Oxygen Flow Rate 2 02/03/23 11:42 02/03/23 11:57 02/03/23 12:00 Temperature 98.9 F Pulse Rate 100 H 97 H 97 H Respiratory Rate 18 30 H Blood Pressure 184/92 H Pulse Oximetry 97 97 Oxygen Delivery Method Nasal Cannula Oxygen Flow Rate 2 02/03/23 12:00 02/03/23 12:01 02/03/23 12:01 Temperature Pulse Rate 99 H Respiratory Rate 24 Blood Pressure 189/100 H 188/98 H Pulse Oximetry 98 Oxygen Delivery Method Nasal Cannula Oxygen Flow Rate 2 02/03/23 12:03 02/03/23 12:10 02/03/23 12:10 Temperature 98.8 F Pulse Rate 97 H 95 H Respiratory Rate 20 17 Blood Pressure 188/98 H 187/95 H Pulse Oximetry 97 Oxygen Delivery Method Oxygen Flow Rate 02/03/23 12:20 02/03/23 12:20 02/03/23 12:30 Temperature Pulse Rate 96 H 97 H Respiratory Rate 19 19 Blood Pressure 176/93 H Pulse Oximetry 96 97 Oxygen Delivery Method Nasal Cannula Oxygen Flow Rate 2 02/03/23 12:30 02/03/23 12:40 02/03/23 12:40 Temperature Pulse Rate 98 H Respiratory Rate 23 Blood Pressure 188/100 H 174/97 H Pulse Oximetry 97 Oxygen Delivery Method Nasal Cannula Oxygen Flow Rate 2 02/03/23 12:50 02/03/23 12:50 02/03/23 13:00 Temperature Pulse Rate 97 H Respiratory Rate 14 Blood Pressure 174/102 H 188/99 H Pulse Oximetry 97 Oxygen Delivery Method Oxygen Flow Rate 02/03/23 13:00 02/03/23 13:10 02/03/23 13:10 Temperature Pulse Rate 96 H 98 H Respiratory Rate 18 21 Blood Pressure 184/99 H Pulse Oximetry 97 97 Oxygen Delivery Method Nasal Cannula Oxygen Flow Rate 2 02/03/23 13:20 02/03/23 13:20 02/03/23 13:30 Temperature Pulse Rate 109 H 100 H Respiratory Rate 19 24 Blood Pressure 190/83 H Pulse Oximetry 90 L 96 Oxygen Delivery Method Oxygen Flow Rate 02/03/23 13:30 02/03/23 13:40 02/03/23 13:40 Temperature Pulse Rate 97 H Respiratory Rate 22 Blood Pressure 194/93 H 189/90 H Pulse Oximetry 97 Oxygen Delivery Method Nasal Cannula Oxygen Flow Rate 2 02/03/23 13:44 02/03/23 13:44 02/03/23 13:47 Temperature 99.5 F Pulse Rate 100 H 100 H Respiratory Rate 24 22 Blood Pressure 191/93 H 191/93 H Pulse Oximetry 92 Oxygen Delivery Method Nasal Cannula Oxygen Flow Rate 1.5 02/03/23 13:50 02/03/23 13:50 02/03/23 14:00 Temperature Pulse Rate 96 H 96 H Respiratory Rate 23 22 Blood Pressure 174/84 H Pulse Oximetry 94 96 Oxygen Delivery Method Oxygen Flow Rate 02/03/23 14:00 02/03/23 14:14 02/03/23 14:14 Temperature Pulse Rate 101 H Respiratory Rate Blood Pressure 181/90 H 174/75 H Pulse Oximetry 96 Oxygen Delivery Method Oxygen Flow Rate 02/03/23 14:20 02/03/23 14:20 02/03/23 14:30 Temperature Pulse Rate 95 H 94 H Respiratory Rate 15 21 Blood Pressure 181/85 H Pulse Oximetry 96 97 Oxygen Delivery Method Oxygen Flow Rate 02/03/23 14:30 02/03/23 14:40 02/03/23 14:40 Temperature Pulse Rate 93 H Respiratory Rate 20 Blood Pressure 162/86 H 176/90 H Pulse Oximetry 97 Oxygen Delivery Method Oxygen Flow Rate 02/03/23 14:50 02/03/23 14:50 02/03/23 15:00 Temperature Pulse Rate 100 H Respiratory Rate 25 H Blood Pressure 207/111 H 210/106 H Pulse Oximetry 96 Oxygen Delivery Method Oxygen Flow Rate 02/03/23 15:00 02/03/23 15:31 Temperature 98.6 F Pulse Rate 101 H 95 H Respiratory Rate 22 19 Blood Pressure 173/78 H Pulse Oximetry 96 96 Oxygen Delivery Method Nasal Cannula Oxygen Flow Rate 2 2 Oxygen Delivery Method Nasal Cannula Oxygen Flow Rate 2 Narrative Exam Narrative: GEN: no acute distress, pale HEENT: moist mucous membranes, PERRL NECK: trachea midline, no JVD CV: regular rate and rhythm, no murmurs PULM: clear bilaterally ABD: soft, nontender, nondistended, no organomegaly EXT: warm and well perfused with no edema NEURO: awake, alert, oriented, no focal deficits Objective Labs 02/03/23 09:05 02/03/23 09:05 Labs: Laboratory Results - last 24 hr 02/03/23 02/03/23 09:05 14:49 WBC 11.8 H RBC 2.99 L Hgb 8.3 L Hct 24.4 L MCV 81.6 MCH 27.6 MCHC 33.9 RDW 13.8 Plt Count 542 H Neut % (Auto) 85.6 H Lymph % (Auto) 7.2 L [place] % (Auto) 5.3 Eos % (Auto) 1.1 L Baso % (Auto) 0.8 Neut # (Auto) 95034 H Lymph # (Auto) 800 L [place] # (Auto) 600 Eos # (Auto) 100 Baso # (Auto) 100 Sodium 138 Potassium 3.4 Chloride 98 Carbon Dioxide 29 BUN 11 Creatinine 0.59 Estimated GFR > 60 BUN/Creatinine Ratio 18.6 Glucose 136 H Lactate 1.8 Calcium 9.7 Magnesium 2.2 Total Bilirubin 0.5 AST 38 H ALT 26 Alkaline Phosphatase 111 Total Creatine Kinase 37 Troponin I < 0.012 NT-Pro-B Natriuret Pep 217 H Total Protein 7.9 Albumin 4.4 Globulin 3.5 Albumin/Globulin Ratio 1.3 Procalcitonin 0.10 Blood Type O Negative Antibody Screen Negative Crossmatch See Detail Assessment & Plan Assessment & Plan narrative: # acute hypoxic resp failure 2/2 acute bilateral pulmonary embolisms -tachycardic in ED requiring 2L NC -CTPA shows bilateral PE's without R heart strain -oncology ok with DOAC and monitoring blood counts overnight -given pradaxa in ED, will switch to eliquis 10mg BID due to data supporting eliquis in treatment of PE due to active cancer -wean O2 as able # acute blood loss anemia secondary to metastatic rectal cancer -cancer confirmed by biopsy done by Dr. Pacheco Ricardo [facility] gen surg last week -Hgb dropped from 12.5 to 8.3 in 2 months -1 unit PRBC ordered in ED -will likely need radiation to help stop bleeding, has appt with Dr. Chen oncology on 02/05 at [facility] -monitor with q12h Hgb while on DOAC -pain control # HTN urgency -BP up to 200's sytolic, recently had metoprolol XL increased to 200mg but patient wasn't tolerating -continue metoprolol 50mg XL -start losartan 50mg BID -labetalol IV PRN for SBP >180 Code status is full code. DVT prophylaxis with Eliquis. Proxy is spouse Gigi. I have reviewed home meds and used all available resources to reconcile the home meds. Case discussed with ED physician/APC and patient will be admitted to the hospitalist service for further workup and management. This patient will be admitted as obs and will require less than 2 midnights of hospital time to treat PE and rectal bleeding.
[2023-02-03] MEDS: OXYCODONE IR 10 MG TABLET PO ×2 (15:56→19:56)
[2023-02-03] MEDS: LOSARTAN 50 MG TABLET PO ×2 (16:37→20:47)
--- NOTE | 2023-02-03 16:59 | PC.NURSE ---
Pt admitted form ED for Dr. Martinez Pt A/O 3 Recent DX of rectal Ca having some lower abd & perineal discomfort Med w/ oxy w/some relief. 2 HL in LAC intact/patent. Pt oriented to room & call system. Call light w/in reach, pt calls appropriately for needs. Continue w/plan of care.
[2023-02-03] MEDS: HYDROMORPHONE 0.5 MG INJ IV ×2 (18:13→22:30)
[2023-02-03] MEDS: ACETAMINOPHEN 325 MG TABLET 650 MG PO (19:56)
[2023-02-03 20:34] LABS: Hemoglobin 8.2 g/dL (12.0-16.0)
[2023-02-03] MEDS: GABAPENTIN 300 MG CAPSULE PO (20:47)
[2023-02-03] MEDS: APIXABAN 5 MG TABLET 10 MG PO (20:47)
[2023-02-03] MEDS: SENNOSIDES 8.6 MG TABLET PO (22:30)
[2023-02-04] VITALS (11 sets, daily range): BP systolic 137–165; BP diastolic 68–82; PULSE 96–119; RESP 16–24; TEMP 36.2–36.7; O2SAT 93–96
[2023-02-04] MEDS: OXYCODONE IR 10 MG TABLET PO ×2 (00:58→06:58)
[2023-02-04] MEDS: HYDROMORPHONE 0.5 MG INJ IV ×5 (02:28→22:24)
[2023-02-04] MEDS: ACETAMINOPHEN 325 MG TABLET 650 MG PO ×2 (04:03→09:04)
[2023-02-04 05:37] LABS: BUN Creatinine Ratio 16.7 (6-22); Blood Urea Nitrogen 8 mg/dL (7-17); Calcium 9.2 mg/dL (8.4-10.2); Carbon Dioxide 26 mmol/L (22-32); Chloride 100 mmol/L (98-107); Estimated Glomerular Filt Rate > 60 mL/min (>60); Glucose 130 mg/dL (70-100); HEMOLYSIS < 15 (0-50); Potassium 3.3 mmol/L (3.4-5.1); Sodium 136 mmol/L (137-145)
[2023-02-04 05:39] LABS: Add Manual Diff / Slide Review NO; Basophils Absolute Auto 0 /uL (0-100); Basophils Percent Auto 0.4 % (0-2); Eosinophils Absolute Auto 100 /uL (0-450); Eosinophils Percent Auto 1.5 % (2-4); Hematocrit 22.6 % (36-46); Hemoglobin 7.8 g/dL (12.0-16.0); Lymphocytes Absolute Auto 1000 /uL (1100-4500); Lymphocytes Percent Auto 10.4 % (25-40); Mean Corpuscular HGB Conc 34.3 % (30-36); Mean Corpuscular Hemoglobin 27.8 PG (26-34); Mean Corpuscular Volume 81.2 fL (80-100); Monocytes Absolute Auto 800 /uL (0-900); Monocytes Percent Auto 7.8 % (3-14); Neutrophils Absolute Auto 8000 /uL (1500-7000); Neutrophils Percent Auto 79.9 % (50-75); Platelet Count 386 X10^3/uL (150-400); Red Blood Cell Count 2.79 X10^6/uL (4.0-5.2)
[2023-02-04] MEDS: POTASSIUM CHLORIDE 20 MEQ TAB 40 MEQ PO ×2 (09:20→14:00)
[2023-02-04] MEDS: APIXABAN 5 MG TABLET 10 MG PO ×2 (09:21→20:27)
[2023-02-04] MEDS: LOSARTAN 50 MG TABLET PO ×2 (09:22→20:25)
--- NOTE | 2023-02-04 09:29 | CM.DANOTE ---
DCP: Case received, EMR reviewed and met with patient. Spouse, Gigi, was at bedside. Introduced self and role. Was able to complete DC assessment based upon information currently available. PCP: Dr. Sue Tijerina. Payer: confirmed: [facility]. Patient came to the hospital via private vehicle secondary to rectal bleeding. Patient was recently diagnosed with rectal cancer with metastases, she had a biopsy a week ago. Patient came in with complaints of fatigue, rectal pain, ran out of her pain meds, persistent rectal bleeding. Patient had noted to be hypoxic and tachycardic, showing bilateral PEs. Patient diagnosed with acute hypoxic resp failure, bilateral PE, and acute blood loss anemia. Patient is also under the care of Dr. Chen, at [facility] oncology. Met with patient and spouse in the room. She is currently on oxygen, nasal cannula, alert, and pleasant. Confirmed that she resides here in [place] with spouse, and is independent at baseline, just started seeing Dr. Chen. P: DCP to continue to follow. Patient should be able to go home when deemed medically stable. Ana Laura Brody RN/[employer] Discharge Planning/Care Management CM Discharge Assessment Start: 02/04/23 09:28 Freq: Status: Active Protocol: Document 02/04/23 09:28 (Rec: 02/04/23 09:29 [id number]) Discharge Planning Assessment Assigned Electric [employer]or [employer]ic Ana Laura Brody RN/[employer] Advance Directives? No Advance Directives on File No History Provided By Patient,Medical Record Household Members spouse Type of transporation used prior to Drives own vehicle admit Independent with ADL's Yes Is patient alert and oriented? Yes Caregiver for Another No Barriers to Discharge No Comment Has supportive spouse. Discharge Plan Home Transportation Arrangement Spouse Referrals Initiated None needed Whiteboard Updated in Patient Room with Yes name and ext. # of [employer] Review Status In Process Next Review Type Continued Stay Review
--- NOTE | 2023-02-04 10:51 | DI.US.S_ITS ---
PROCEDURE: US PERIPH VENOUS LOW EXTREM BI INDICATIONS: assess for residual clot, has PE's TECHNIQUE: Real-time imaging, as well as color and pulse Doppler interrogation, were performed of the deep veins of both legs from the inguinal ligament to the popliteal fossa, with documentation of the visualized calf veins. COMPARISON: None. FINDINGS: Right: The common femoral, femoral, popliteal, and the visualized calf veins are normally compressible, and free of intraluminal thrombus. Color and pulse Doppler demonstrate normal phasic intravascular flow. There is normal augmentation response to distal compression maneuver. Left: The common femoral, femoral, and popliteal veins are normally compressible, and free of intraluminal thrombus. Color and pulse Doppler demonstrate normal phasic intravascular flow. There is normal augmentation response to distal compression maneuver. Partial occlusion of the posterior tibialis vein IMPRESSION: Distal deep vein thrombosis of the left leg. Dr. Ceron discussed the above findings with Dr. Martinez over the phone at 3:50 p.m. [place] time Dictated by: Fran Ceron M.D. on 02/04/2023 at 15:46 Approved by: Fran Ceron M.D. on 02/04/2023 at 15:52
[2023-02-04] MEDS: polyethylene glycoL 3350 17 GM POWD.PACK PO (11:01)
[2023-02-04] MEDS: OXYCODONE/ACETAMINOPHEN 5/325 TABLET 1.5 TAB PO ×5 (11:02→23:13)
--- NOTE | 2023-02-04 14:49 | PM.PN.1 ---
Subjective Subjective Interval history: Hgb down to 7.8 today. Another unit of PRBC ordered. Patient still on 2L NC. Home O2 eval ordered. Patient having more rectal pain and requesting increase in oxy. She also notes bilateral calf cramping. Exam Vital Signs (past 8 hours): - 02/04/23 07:00 02/04/23 07:53 02/04/23 08:00 Temperature 97.1 F L Pulse Rate 102 H Respiratory Rate 16 Blood Pressure 155/78 H Pulse Oximetry 93 95 Oxygen Delivery Method Nasal Cannula Nasal Cannula Oxygen Flow Rate 2 2 Fraction of Inspired Oxygen 28 02/04/23 09:45 02/04/23 10:00 02/04/23 10:02 Temperature 98.1 F 97.6 F 97.6 F Pulse Rate 102 H 104 H 104 H Respiratory Rate 22 24 24 Blood Pressure 137/68 153/79 H 153/79 H Pulse Oximetry Oxygen Delivery Method Oxygen Flow Rate Fraction of Inspired Oxygen 02/04/23 12:00 02/04/23 12:15 Temperature 97.8 F 97.8 F Pulse Rate 102 H 102 H Respiratory Rate 22 22 Blood Pressure 149/80 H 149/80 H Pulse Oximetry 94 Oxygen Delivery Method Oxygen Flow Rate Fraction of Inspired Oxygen Fraction of Inspired Oxygen 28 SaO2/FiO2 Ratio 332 Oxygen Delivery Method Nasal Cannula Oxygen Flow Rate 2 Narrative Exam Narrative: GEN: no acute distress, pale, on 2L NC HEENT: moist mucous membranes, PERRL NECK: trachea midline, no JVD CV: regular rate and rhythm, no murmurs PULM: clear bilaterally ABD: soft, nontender, nondistended, no organomegaly EXT: warm and well perfused with no edema NEURO: awake, alert, oriented, no focal deficits Objective Labs 02/04/23 04:56 02/04/23 04:56 Labs: Laboratory Results - last 24 hr 02/03/23 02/03/23 02/03/23 09:05 14:49 20:25 WBC RBC Hgb 8.2 L Hct MCV MCH MCHC RDW Plt Count Neut % (Auto) Lymph % (Auto) Park % (Auto) Eos % (Auto) Baso % (Auto) Neut # (Auto) Lymph # (Auto) Park # (Auto) Eos # (Auto) Baso # (Auto) Sodium Potassium Chloride Carbon Dioxide BUN Creatinine Estimated GFR BUN/Creatinine Ratio Glucose Calcium Magnesium 2.2 Blood Type O Negative Antibody Screen Negative Crossmatch See Detail 02/04/23 04:56 WBC 10.0 RBC 2.79 L Hgb 7.8 L Hct 22.6 L MCV 81.2 MCH 27.8 MCHC 34.3 RDW 14.0 Plt Count 386 Neut % (Auto) 79.9 H Lymph % (Auto) 10.4 L Park % (Auto) 7.8 Eos % (Auto) 1.5 L Baso % (Auto) 0.4 Neut # (Auto) 8000 H Lymph # (Auto) 1000 L Park # (Auto) 800 Eos # (Auto) 100 Baso # (Auto) 0 Sodium 136 L Potassium 3.3 L Chloride 100 Carbon Dioxide 26 BUN 8 Creatinine 0.48 L Estimated GFR > 60 BUN/Creatinine Ratio 16.7 Glucose 130 H Calcium 9.2 Magnesium Blood Type Antibody Screen Crossmatch [facility] Medical History Essential hypertension Pancreatitis Healthy adult Surgical History History of hysterectomy Family History Mother Interstitial cystitis Fibromyalgia Social History household members: spouse Smoking Status: Never smoker Assessment & Plan Assessment & Plan narrative: # acute hypoxic resp failure 2/2 acute bilateral pulmonary embolisms -tachycardic in ED requiring 2L NC -CTPA shows bilateral PE's without R heart strain -oncology ok with DOAC and monitoring blood counts overnight -given pradaxa in ED, will switch to eliquis 10mg BID due to data supporting eliquis in treatment of PE due to active cancer -wean O2 as able, home O2 eval ordered -LE US ordered to assess for residual DVT due to bilateral calf cramps # acute blood loss anemia secondary to metastatic rectal cancer -cancer confirmed by biopsy done by Dr. Junior Silva [facility] gen surg last week -Hgb dropped from 12.5 to 8.3 in 2 months -1 unit PRBC ordered in ED -will likely need radiation to help stop bleeding, has appt with Dr. Chen oncology on 02/05 at [facility] -monitor with q12h Hgb while on DOAC -Hgb still low at 7.8, another 1 unit PRBC ordered -pain control # HTN urgency, improved -BP up to 200's sytolic, recently had metoprolol XL increased to 200mg but patient wasn't tolerating -start losartan 50mg BID, stopped metoprolol as patient having paradoxical tachy with it she says -labetalol IV PRN for SBP >180 # h/o pancreatitis -continue Creon Code status is full code. DVT prophylaxis with Eliquis. Proxy is spouse Gigi. I have reviewed home meds and used all available resources to reconcile the home meds. Dispo: Dc to see radiation and oncology morning of 02/05.
[2023-02-04] MEDS: BENZONATATE 100 MG CAPSULE PO (16:48)
[2023-02-04] MEDS: GABAPENTIN 300 MG CAPSULE PO (20:27)
[2023-02-04] MEDS: SODIUM CHLORIDE 0.9% FLUSH 10 ML IV ×2 (20:27→22:24)
[2023-02-05 00:35] VITALS: BP 162/82; PULSE 105; RESP 17; TEMP 36.8; O2SAT 93
--- NOTE | 2023-02-05 01:02 | PC.NURSE ---
Patient is alert and oriented. Breath sounds CTA with RA sat of 94%. Has non-productive, hacking, persistent cough but denied SOB. HRR but tachycardic with rate of 116 and telemetry reading of ST. BP also elevated at 165/73 but within specified paramaters so need for prn Labetolol. Denied nausea. BT present but reports continued rectal bleeding and states it has been reduced from admission to moderate. Denied dysuria with urination but reports difficulty emptying related to pressure from tumor but denies any feeling of retention. Is independent with mobility and steady on feet. Complains of perineal pain and is alternating po percocet with IV dilaudid and reports that is managing her pain. Wearing bilateral calf SCD's although after reviewing report of US removed the left SCD; verbalizes understanding and rationale. Fall risk score is moderate but patient oriented and steady on feet so alarm not activated at this time.
[2023-02-05] MEDS: HYDROMORPHONE 0.5 MG INJ IV ×2 (02:26→06:37)
[2023-02-05 03:55] VITALS: BP 175/90; PULSE 111; RESP 18; TEMP 36.9; O2SAT 92
[2023-02-05] MEDS: OXYCODONE/ACETAMINOPHEN 5/325 TABLET 1.5 TAB PO (04:04)
[2023-02-05 05:13] LABS: Add Manual Diff / Slide Review NO; Basophils Absolute Auto 0 /uL (0-100); Basophils Percent Auto 0.4 % (0-2); Eosinophils Absolute Auto 300 /uL (0-450); Eosinophils Percent Auto 2.9 % (2-4); Hematocrit 25.5 % (36-46); Hemoglobin 8.7 g/dL (12.0-16.0); Lymphocytes Absolute Auto 1000 /uL (1100-4500); Lymphocytes Percent Auto 10.9 % (25-40); Mean Corpuscular Hemoglobin 27.9 PG (26-34); Monocytes Absolute Auto 600 /uL (0-900); Monocytes Percent Auto 6.4 % (3-14); Neutrophils Absolute Auto 7200 /uL (1500-7000); Neutrophils Percent Auto 79.4 % (50-75); Platelet Count 345 X10^3/uL (150-400); Red Blood Cell Count 3.11 X10^6/uL (4.0-5.2); Red Cell Distribution Width 14.7 % (11.6-14.8)
[2023-02-05 05:16] LABS: BUN Creatinine Ratio 11.1 (6-22); Blood Urea Nitrogen 5 mg/dL (7-17); Calcium 9.4 mg/dL (8.4-10.2); Carbon Dioxide 30 mmol/L (22-32); Chloride 100 mmol/L (98-107); Estimated Glomerular Filt Rate > 60 mL/min (>60); Glucose 129 mg/dL (70-100); HEMOLYSIS < 15 (0-50); Sodium 135 mmol/L (137-145)
[2023-02-05] MEDS: SODIUM CHLORIDE 0.9% FLUSH 10 ML IV ×2 (06:37→08:30)
[2023-02-05] MEDS: BENZONATATE 100 MG CAPSULE PO (06:42)
[2023-02-05] MEDS: LORazepam 0.5 MG TABLET PO (08:13)
[2023-02-05 08:15] VITALS: BP 176/90; PULSE 106; RESP 18; TEMP 36.7; O2SAT 92
[2023-02-05] MEDS: HYDROMORPHONE 2 MG TABLET PO (08:18)
[2023-02-05 08:28] VITALS: BP 176/90; PULSE 106
[2023-02-05] MEDS: LOSARTAN 50 MG TABLET PO (08:28)
[2023-02-05] MEDS: APIXABAN 5 MG TABLET 10 MG PO (08:29)
[2023-02-05] MEDS: ACETAMINOPHEN 325 MG TABLET 650 MG PO (09:23)
--- NOTE | 2023-02-05 18:49 | P.DS_ITS ---
History of Present Illness History of Present Illness Chief complaint: just had biopsy, pain in back due to tumor Narrative: Gracie Hawthorne is a 57yo F with PMH of HTN, pancreatitis and recent diagnosis of metastatic anal cancer who presents with increased fatigue, malaise and rectal bleeding. Patient states she has been having steady rectal bleeding for weeks which initially was thought to be from hemorrhoids. She had a colonoscopy and biopsy of a rectal mass by Dr. Junior Silva at [facility] about a week ago which unfortunately showed rectal cancer. Had a CT chest/abd/pelvis last week which showed mets to liver and lungs. She meets with Dr. Chen oncology in 2 days on 02/05 to discuss treatment options. She was told after her biopsy if she started feeling worse at all to go to the ED. Since yesterday she has had worsening fatigue and malaise so she came in. Found in our ED to be hypoxic and tachycardic. CTPA showed bilateral PE's. Dr. Chen contacted who recommended starting DOAC and monitoring overnight. He will then f/up and see her on Sunday in clinic for her scheduled appointment. She endorses a chronic cough since having COVID a few months ago. Denies any significant SOB. No CP, NV, syncope, fever/chills or diarrhea. She notes rectal bleeding has been daily and constant with some clots. Discharge Providers Provider Date of admission: 02/03/23 14:44 Discharge Date: 02/05/23 Primary care physician: Edwin Gay MD Discharge provider: Chao Martinez DO Summary Hospital Course Discharge Diagnosis: # acute hypoxic resp failure 2/2 acute bilateral pulmonary embolisms, resp failure resolved -tachycardic in ED requiring 2L NC -CTPA shows bilateral PE's without R heart strain -oncology ok with DOAC and monitoring blood counts overnight -given pradaxa in ED, will switch to eliquis 10mg BID due to data supporting eliquis in treatment of PE due to active cancer -wean O2 as able, home O2 eval ordered -LE US ordered to assess for residual DVT due to bilateral calf cramps, found residual nonocclusive clot in LLE -weaned off O2 -placed on eliquis on discharge # acute blood loss anemia secondary to metastatic rectal cancer -cancer confirmed by biopsy done by Dr. Junior Silva [facility] gen surg last week -Hgb dropped from 12.5 to 8.3 in 2 months -1 unit PRBC ordered in ED -will likely need radiation to help stop bleeding, has appt with Dr. Chen oncology on 02/05 at [facility] -monitor with q12h Hgb while on DOAC -Hgb still low at 7.8, another 1 unit PRBC ordered -pain control -Hgb stable on dc -will f/up with [facility] oncology tomorrow # HTN urgency, improved -BP up to 200's sytolic, recently had metoprolol XL increased to 200mg but patient wasn't tolerating -start losartan 50mg BID, stopped metoprolol as patient having paradoxical tachy with it she says -labetalol IV PRN for SBP >180 # h/o pancreatitis -continue Creon Hospital Course: Admitted for rectal bleeding and anemia from metastatic rectal cancer. Also was SOB requiring supp O2 and found to have PE. Echo reassuring. DVT US showed clot in LLE. Called Dr. Chen oncology who rec to place on eliquis and monitor for bleeding. Able to tolerate DOAC and bleeding and Hgb was stable. O2 weaned off. Had very high BP so metoprolol was changed to losartan. Will f/up with Dr. Chen oncologist tomorrow on 02/06. Exam Vital Signs (past 8 hours): Fraction of Inspired Oxygen 28 SaO2/FiO2 Ratio 332 Oxygen Delivery Method Room Air Oxygen Flow Rate 0 Narrative Exam Narrative: GEN: no acute distress, pale HEENT: moist mucous membranes, PERRL NECK: trachea midline, no JVD CV: regular rate and rhythm, no murmurs PULM: clear bilaterally ABD: soft, nontender, nondistended, no organomegaly EXT: warm and well perfused with no edema NEURO: awake, alert, oriented, no focal deficits Objective Labs 02/05/23 04:35 02/05/23 04:35 Labs: Laboratory Results - last 24 hr 02/05/23 04:35 WBC 9.0 RBC 3.11 L Hgb 8.7 L Hct 25.5 L MCV 82.0 MCH 27.9 MCHC 34.0 RDW 14.7 Plt Count 345 Neut % (Auto) 79.4 H Lymph % (Auto) 10.9 L Bailey % (Auto) 6.4 Eos % (Auto) 2.9 Baso % (Auto) 0.4 Neut # (Auto) 7200 H Lymph # (Auto) 1000 L Bailey # (Auto) 600 Eos # (Auto) 300 Baso # (Auto) 0 Sodium 135 L Potassium 4.0 Chloride 100 Carbon Dioxide 30 BUN 5 L Creatinine 0.45 L Estimated GFR > 60 BUN/Creatinine Ratio 11.1 Glucose 129 H Calcium 9.4 PFSH Medical History Essential hypertension Pancreatitis Healthy adult Surgical History History of hysterectomy Family History Mother Interstitial cystitis Fibromyalgia Social History household members: spouse Smoking Status: Never smoker Discharge Plan Discharge Plan Patient Disposition: Home Provider Discharge Comment: You were admitted for rectal bleeding and fatigue. Unfortunately we found a clot in your left leg and in your lungs. You are now on blood thinners to prevent further clots. I've changed your blood pressure meds to just losartan twice daily. Please f/up with oncology and radiation, as starting radiation is likely what will get the bleeding to improve. Discharge orders & Medications Prescriptions: New losartan 50 mg Tablet 50 mg PO BID Qty: 60 0RF Eliquis 5 mg tablet See Rx Instructions .ROUTE .COMPLEX Qty: 30 0RF Rx Instructions: take 10mg (2 tabs) twice daily for 4 days then lower to 5mg (1 tab) twice daily hydrocodone-acetaminophen 10-325 mg tablet 2 tab PO Q4H Qty: 30 0RF Rx Instructions: may take 1.5 tab or 1 tab as well Discontinued oxycodone 10 mg Tablet 10 mg PO Q4H PRN (Reason: Pain, Severe (7-10)) Qty: 30 0RF metoprolol succinate 50 mg tablet extended release 24 hr 50 mg PO DAILY Follow up/Referrals: Edwin Gay MD [Primary Care Provider] - Harrison Chen MD [Physician] - 1 Day Visit Report/Discharge Packet Instructions: DI for Prescription Opioid Use Stand Alone Forms: Patient Portal/API, Stroke Signs & Symptoms Discharge Data Primary Care Provider: Edwin Gay
== END 2023-02-05 10:59 | disposition home or self-care (01) | DRG 175 ==
LOC: ED 14:43 → AC 14:46
PROVIDERS: Admitting Provider Student in an Organized Health Care Education/Training Program; Emergency Provider Emergency Medicine; Family Provider Registered Nurse; PCP Internal Medicine; Referring Provider Emergency Medicine; Visit Provider Student in an Organized Health Care Education/Training Program
DX: I26.99 Other pulmonary embolism without acute cor pulmonale (principal); J96.01 Acute respiratory failure with hypoxia; D62 Acute posthemorrhagic anemia; C20 Malignant neoplasm of rectum; C78.7 Secondary malignant neoplasm of liver and intrahepatic bile duct; C78.02 Secondary malignant neoplasm of left lung; C78.01 Secondary malignant neoplasm of right lung; I82.442 Acute embolism and thrombosis of left tibial vein; I16.0 Hypertensive urgency; I10 Essential (primary) hypertension; Z87.19 Personal history of other diseases of the digestive system
CPT/HCPCS: 36415; 36430; 71045; 71275; 74177; 80048; 80053; 81003; 82550; 83605; 83735; 83880; 84145; 84484; 85018; 85025; 86850; 86900; 86901; 87040; 93005; 93010; 93306; 93970; 94762; 96365; 96375; 99285; 99291; P9016; J0131; J1170; J2270; Q9967

== ENCOUNTER 2023-02-22 18:14 | Inpatient (IN) | payer OTHER, SELFPAY ==
[2023-02-03 15:02] VITALS: BMI 29.0
[2023-02-22 18:30] VITALS: BP 133/57; PULSE 122; RESP 20; TEMP 36.4; O2SAT 95; BMI 28.6
--- NOTE | 2023-02-22 19:41 | DI.US.S_ITS ---
PROCEDURE: US [facility] VENOUS LOW EXTREM LT INDICATIONS: KNOWN DVT, NOW DUSKY LIMB TECHNIQUE: Real-time imaging, as well as color and pulse Doppler interrogation, were performed of the lower extremity deep veins from the inguinal ligament to the popliteal fossa, with documentation of the visualized calf veins. COMPARISON: [facility], , US [facility] VENOUS LOW EXTREM BI, 02/04/2023, 16:15. FINDINGS: Calf veins are not well seen due to soft tissue edema. Occlusive thrombus is seen within the popliteal vein and the mid to distal femoral vein. There is partially occlusive thrombus within the proximal femoral vein in the common femoral vein. Thrombus is also seen within the greater saphenous vein near the confluence. Findings are more extensive when compared to the prior ultrasound from 02/04/2023. The profunda femoral vein is patent. IMPRESSION: Extensive occlusive and nonocclusive deep venous thrombus throughout the left lower extremity, which has progressed when compared to the ultrasound from 02/04/2023. Findings were discussed with the referring physician, Dr. Swann, by telephone on 02/22/2023 at 8:31 PM. Approved by: Rajendra Bean M.D. on 02/22/2023 at 20:32
--- NOTE | 2023-02-22 19:51 | ED_ITS ---
HPI - Extremity Problem <Jagruti Swann MD - Last Filed: 02/24/23 19:33> General Chief complaint: Extremity Problem,Nontraumatic Stated complaint: left calf swollen poss blood clot Time Seen by Provider: 02/22/23 19:30 Source: patient Mode of arrival: Wheelchair History of Present Illness HPI Narrative: 57-year-old female with history of stage IV rectal cancer, PE on supplemental O2, DVT with IVC filter presents by private vehicle for LLE swelling. Patient was diagnosed with her DVT and pulmonary embolism 1 month prior. At [facility] it was determined that patient should not be on anticoagulation due to anticipated port placement for chemotherapy and patient was instead placed on supplemental oxygen and an IVC filter was placed. Patient was leaving her 1st radiation appointment when she noticed that her left lower extremity was much larger than it usually is and very tense. She was referred to the emergency department for evaluation. On arrival the patient's left lower extremity was noted to be swollen with slight pallor as well as decreased temperature compared to the right lower extremity. Unable to palpate dorsalis pedis pulses on the left foot, however these were measured with Doppler. Patient reported tingling sensation in her LLE. Related Data Home Medications Medication Instructions Recorded Confirmed baclofen 10 mg tablet 10 mg PO 3XD 02/24/23 02/24/23 hydrocodone 10 mg-acetaminophen 2 tab PO Q3-4H PRN Pain, Severe 02/24/23 02/24/23 325 mg tablet lidocaine 4 % topical patch 1 patch topical 1XD 02/24/23 02/24/23 (Lidocaine Pain Relief) [id number] 1 cap PO 3XD 02/24/23 02/24/23 36,000-114,000-180,000 unit capsule,delay rel (Creon) morphine 30 mg tablet,extended 30 mg PO QID 02/24/23 02/24/23 release polyethylene glycol 3350 17 gram 17 g PO DAILY 02/24/23 02/24/23 oral powder packet sennosides 8.6 mg tablet (senna) 8.6 mg PO BID constipation 02/24/23 02/24/23 Previous Rx's Medication Instructions Recorded apixaban 5 mg tablet (Eliquis) See Rx Instructions .Route 02/05/23 .COMPLEX #30 tabs losartan 50 mg tablet 50 mg PO BID #60 tabs 02/05/23 Allergies Allergy/AdvReac Type Severity Reaction Status Date / Time amoxicillin AdvReac Intermediate Diarrhea Verified 02/03/23 08:34 Sulfa (Sulfonamide AdvReac Intermediate Nausea Verified 02/03/23 08:34 Antibiotics) Review of Systems <Jagruti Swann MD - Last Filed: 02/24/23 19:33> Review of Systems Narrative: Negative except as noted above Patient History <Jagrtui Swann MD - Last Filed: 02/24/23 19:33> Medical History Essential hypertension Pancreatitis Healthy adult Surgical History History of hysterectomy Family History Mother Interstitial cystitis Fibromyalgia Social History household members: spouse and children Smoking Status: Never smoker Smoking Status: Never smoker alcohol intake frequency: holidays/special occasions only Substance Use Type: does not use Exam <Jagruti Swann MD - Last Filed: 02/24/23 19:33> Initial Vital Signs Initial Vital Signs: Vital Signs Temperature 97.6 F 02/22/23 18:30 Pulse Rate 122 H 02/22/23 18:30 Respiratory Rate 20 02/22/23 18:30 Blood Pressure 133/57 L 02/22/23 18:30 Pulse Oximetry 95 02/22/23 18:30 Oxygen Delivery Method Nasal Cannula 02/22/23 18:30 Oxygen Flow Rate 2 02/22/23 18:30 Const: Awake, alert, no acute distress, nontoxic appearing Cardiac: Tachycardia, regular rhythm RESP: unlabored, on supplemental nasal cannula, no wheezing GI: Atraumatic, soft, nontender, nondistended, no rebound, no guarding MSK: LLE > RLE, unable to palpate DP pulses on LLE, doppler pulses obtained Skin: Skin of left lower extremity is slightly statistician in color and cooler to touch than right lower extremity Neuro: AO x3, CN II-XII grossly intact, moves all extremities Psych: affect normal, mood normal, not suicidal, not homicidal <Lulu Esparza DO - Last Filed: 02/24/23 13:10> Initial Vital Signs Initial Vital Signs: Vital Signs Temperature 97.6 F 02/22/23 18:30 Pulse Rate 122 H 02/22/23 18:30 Respiratory Rate 20 02/22/23 18:30 Blood Pressure 133/57 L 02/22/23 18:30 Pulse Oximetry 95 02/22/23 18:30 Oxygen Delivery Method Nasal Cannula 02/22/23 18:30 Oxygen Flow Rate 2 02/22/23 18:30 <Fernando Aguirre DO - Last Filed: 02/24/23 06:38> Initial Vital Signs Initial Vital Signs: Vital Signs Temperature 97.6 F 02/22/23 18:30 Pulse Rate 122 H 02/22/23 18:30 Respiratory Rate 20 02/22/23 18:30 Blood Pressure 133/57 L 02/22/23 18:30 Pulse Oximetry 95 02/22/23 18:30 Oxygen Delivery Method Nasal Cannula 02/22/23 18:30 Oxygen Flow Rate 2 02/22/23 18:30 Course <Jagruti Swann MD - Last Filed: 02/24/23 19:33> Orders Ordered: Acetaminophen (Acetaminophen 325 Mg Tablet) 650 mg PO Q6H [facility] Last Admin: 02/24/23 18:11 Dose: 650 mg Documented By: MURPHY Lipase/Protease/Amylase (Lipase/Protease/Amylase 08/03/23 Cap) 6 cap PO TIDWM [facility] Last Admin: 02/24/23 16:16 Dose: 6 cap Documented By: MURPHY Apixaban (Apixaban 5 Mg Tablet) 10 mg PO BID [facility] Stop: 03/03/23 09:01 Baclofen (Baclofen 10 Mg Tablet) 10 mg PO TID [facility] Last Admin: 02/24/23 14:56 Dose: 10 mg Documented By: ALESSIA Heparin Sodium/Dextrose (Heparin Drip) 25,000 unit in 500 mls @ 29.883 mls/hr IV CONT [facility]; Protocol Stop: 02/24/23 21:00 Last Admin: 02/24/23 15:00 Dose: 25 units/kg/hr, 41.504 mls/hr Documented By: ALESSIA Co-signed By: EM Titration: 02/24/23 15:00 Dose: Infused Documented By: ALESSIA Co-signed By: EM Titration: 02/24/23 07:15 Dose: 25 units/kg/hr, 41.504 mls/hr Documented By: KF Co-signed By: CTS Admin: 02/24/23 02:56 Dose: 24 units/kg/hr, 39.843 mls/hr Documented By: GC Co-signed By: LIS Titration: 02/24/23 02:54 Dose: Infused Documented By: GC Co-signed By: KH Titration: 02/23/23 19:31 Dose: 24 units/kg/hr, 39.843 mls/hr Documented By: GC Co-signed By: HNG Admin: 02/23/23 13:57 Dose: 22 units/kg/hr, 36.523 mls/hr Documented By: OCTAVIO Co-signed By: SPF Titration: 02/23/23 13:52 Dose: Infused Documented By: OCTAVIO Co-signed By: SPF Titration: 02/23/23 13:20 Dose: 22 units/kg/hr, 36.523 mls/hr Documented By: GWENDOLYN Co-signed By: GLADYS Titration: 02/23/23 06:19 Dose: 20 units/kg/hr, 33.203 mls/hr Documented By: GC Co-signed By: MARVIN Admin: 02/22/23 22:01 Dose: 18 units/kg/hr, 29.883 mls/hr Documented By: GC Co-signed By: MARVIN Ceftriaxone Sodium 1,000 mg/ (Sodium Chloride) 100 mls @ 200 mls/hr IV Q24H [facility] Lidocaine (Lidocaine 5% Patch) 1 each TOP DAILY [facility] Last Admin: 02/24/23 14:55 Dose: 1 each Documented By: ALESSIA Lorazepam (Lorazepam 0.5 Mg Tablet) 0.5 mg PO Q4HR PRN PRN Reason: Anxiety Last Admin: 02/24/23 11:51 Dose: 0.5 mg Documented By: Admin: 02/24/23 07:33 Dose: 0.5 mg Documented By: Admin: 02/23/23 19:31 Dose: 0.5 mg Documented By: GC Losartan Potassium (Losartan 50 Mg Tablet) 50 mg PO BID [facility] Morphine Sulfate (Morphine 4 Mg/Ml Inj) 4 mg IV Q2HR PRN PRN Reason: Pain, Moderate (4-6) Last Admin: 02/24/23 12:26 Dose: 4 mg Documented By: Admin: 02/24/23 10:31 Dose: 4 mg Documented By: Admin: 02/24/23 07:33 Dose: 4 mg Documented By: Admin: 02/24/23 03:16 Dose: 4 mg Documented By: Admin: 02/23/23 21:16 Dose: 4 mg Documented By: Admin: 02/23/23 17:19 Dose: 4 mg Documented By: Admin: 02/23/23 15:11 Dose: 4 mg Documented By: Admin: 02/23/23 13:06 Dose: 4 mg Documented By: OCTAVIO Morphine Sulfate (Morphine Er 15 Mg Tablet) 30 mg PO QID [facility] Last Admin: 02/24/23 16:04 Dose: Not Given Documented By: Admin: 02/24/23 14:54 Dose: 30 mg Documented By: ALESSIA Naloxone HCl (Naloxone 0.4 Mg/Ml Vial) 0.2 mg IV Q2MIN PRN PRN Reason: Opiate Reversal Oxycodone HCl (Oxycodone Ir 10 Mg Tablet) 30 mg PO Q4HR PRN PRN Reason: Pain, Severe (7-10) Last Admin: 02/24/23 14:53 Dose: 30 mg Documented By: ALESSIA Oxycodone HCl (Oxycodone Ir 5 Mg Tablet) 15 mg PO Q4HR PRN PRN Reason: Pain, Moderate (4-6) Phenazopyridine HCl (Phenazopyridine 100 Mg Tablet) 100 mg PO TID [facility] Last Admin: 02/24/23 18:11 Dose: 100 mg Documented By: MURPHY Polyethylene Glycol (Polyethylene Glycol 3350 17 Gm Powd.Pack) 17 gm PO DAILY [facility] Last Admin: 02/24/23 14:52 Dose: 17 gm Documented By: ALESSIA Sennosides (Sennosides 8.6 Mg Tablet) 8.6 mg PO BID [facility] Last Admin: 02/24/23 14:53 Dose: 8.6 mg Documented By: ALESSIA Discontinued Medications Hydrocodone Bitart/Acetaminophen (Hydrocodone/Acet 10/325 Tablet) 1 tab PO Q6HR PRN PRN Reason: Pain, Moderate (4-6) Last Admin: 02/24/23 07:33 Dose: 1 tab Documented By: Admin: 02/24/23 01:16 Dose: 1 tab Documented By: Admin: 02/23/23 15:11 Dose: 1 tab Documented By: YAEL Hydrocodone Bitart/Acetaminophen (Hydrocodone/Acet 10/325 Tablet) 2 tab PO NOW ONE Stop: 02/23/23 18:26 Last Admin: 02/23/23 19:02 Dose: 2 tab Documented By: TORIE Heparin Sodium (Porcine) (Heparin 5,000 Unit/Ml Vial) 6,650 unit 80 unit/kg (6650 unit) IV NOW ONE Stop: 02/22/23 21:31 Last Admin: 02/22/23 21:58 Dose: 6,650 unit Documented By: EMILY Heparin Sodium (Porcine) (Heparin 5,000 Unit/Ml Vial) 5,000 unit 60 unit/kg (5000 unit) IV NOW ONE Stop: 02/23/23 06:14 Last Admin: 02/23/23 06:19 Dose: 5,000 unit Documented By: EMILY Heparin Sodium (Porcine) (Heparin 5,000 Unit/Ml Vial) 5,000 unit 60 unit/kg (5000 unit) IV NOW ONE Stop: 02/23/23 19:14 Last Admin: 02/23/23 19:31 Dose: 5,000 unit Documented By: EMILY Heparin Sodium (Porcine) (Heparin 5,000 Unit/Ml Vial) 2,000 unit IV NOW ONE Stop: 02/24/23 07:19 Last Admin: 02/24/23 07:29 Dose: 2,000 unit Documented By: TED Hydromorphone HCl (Hydromorphone 1 Mg Inj) 1 mg IV NOW ONE Stop: 02/23/23 08:07 Last Admin: 02/23/23 08:20 Dose: 1 mg Documented By: YAEL Ceftriaxone Sodium 2,000 mg/ (Sodium Chloride) 100 mls @ 200 mls/hr IV NOW ONE Stop: 02/23/23 09:58 Last Infusion: 02/23/23 11:15 Dose: Infused Documented By: Admin: 02/23/23 10:33 Dose: 200 mls/hr Documented By: ETD Azithromycin 500 mg/ Dextrose 250 mls @ 250 mls/hr IV NOW ONE Stop: 02/23/23 09:58 Last Infusion: 02/23/23 13:01 Dose: Infused Documented By: Admin: 02/23/23 11:19 Dose: 250 mls/hr Documented By: YAEL Ceftriaxone Sodium 2,000 mg/ (Sodium Chloride) 100 mls @ 200 mls/hr IV NOW ONE Stop: 02/24/23 07:16 Last Infusion: 02/24/23 08:10 Dose: Infused Documented By: Admin: 02/24/23 07:34 Dose: 200 mls/hr Documented By: TED Azithromycin 500 mg/ Dextrose 250 mls @ 250 mls/hr IV NOW ONE Stop: 02/24/23 07:16 Last Infusion: 02/24/23 10:18 Dose: Infused Documented By: Admin: 02/24/23 08:32 Dose: 250 mls/hr Documented By: TED Lorazepam (Lorazepam 2 Mg/Ml Inj) 0.5 mg IV NOW ONE Stop: 02/23/23 09:30 Last Admin: 02/23/23 09:58 Dose: 0.5 mg Documented By: YAEL Morphine Sulfate (Morphine 4 Mg/Ml Inj) 4 mg IV NOW ONE Stop: 02/23/23 10:25 Last Admin: 02/23/23 10:32 Dose: 4 mg Documented By: TED Morphine Sulfate (Morphine Er 15 Mg Tablet) 30 mg PO Q8HR [facility] Last Admin: 02/24/23 06:06 Dose: 30 mg Documented By: Admin: 02/23/23 23:05 Dose: 30 mg Documented By: EMILY Morphine Sulfate (Morphine Er 15 Mg Tablet) 120 mg PO QID [facility] Last Admin: 02/24/23 14:32 Dose: Not Given Documented By: ALESSIA Naloxone HCl (Naloxone 0.4 Mg/Ml Vial) 0.2 mg IV Q2MIN PRN PRN Reason: Opiate Reversal Oxycodone HCl (Oxycodone Er 20 Mg Tab) 30 mg PO Q8HR [facility] Oxycodone HCl (Oxycodone Er 10 Mg Tab) 30 mg PO Q8H [facility] Last Admin: 02/24/23 08:53 Dose: 30 mg Documented By: TED Phenazopyridine HCl (Phenazopyridine 100 Mg Tablet) 200 mg PO NOW ONE Stop: 02/24/23 07:47 Last Admin: 02/24/23 07:53 Dose: 200 mg Documented By: TED Vital Signs Vital signs: Vital Signs - 8 hr 02/24/23 05:30 02/24/23 06:00 02/24/23 06:16 Pulse Rate 98 H 99 H Respiratory Rate 15 17 Blood Pressure 129/73 Pulse Oximetry 98 98 Oxygen Delivery Method Oxygen Flow Rate 02/24/23 06:16 02/24/23 06:30 02/24/23 07:00 Pulse Rate 101 H 101 H 97 H Respiratory Rate 20 15 18 Blood Pressure Pulse Oximetry 96 95 96 Oxygen Delivery Method Nasal Cannula Oxygen Flow Rate 02/24/23 07:30 02/24/23 08:00 02/24/23 08:30 Pulse Rate 101 H 104 H 127 H Respiratory Rate 18 Blood Pressure Pulse Oximetry 96 97 94 Oxygen Delivery Method Oxygen Flow Rate 02/24/23 09:00 Pulse Rate 111 H Respiratory Rate Blood Pressure Pulse Oximetry 95 Oxygen Delivery Method Nasal Cannula Oxygen Flow Rate 4 <Lulu Esparza, - Last Filed: 02/24/23 13:10> Orders Ordered: Acetaminophen (Acetaminophen 325 Mg Tablet) 650 mg PO Q6H [facility] Last Admin: 02/24/23 18:11 Dose: 650 mg Documented By: MURPHY Lipase/Protease/Amylase (Lipase/Protease/Amylase 08/03/23 Cap) 6 cap PO TIDWM [facility] Last Admin: 02/24/23 16:16 Dose: 6 cap Documented By: MURPHY Apixaban (Apixaban 5 Mg Tablet) 10 mg PO BID [facility] Stop: 03/03/23 09:01 Baclofen (Baclofen 10 Mg Tablet) 10 mg PO TID [facility] Last Admin: 02/24/23 14:56 Dose: 10 mg Documented By: ALESSIA Heparin Sodium/Dextrose (Heparin Drip) 25,000 unit in 500 mls @ 29.883 mls/hr IV CONT [facility]; Protocol Stop: 02/24/23 21:00 Last Admin: 02/24/23 15:00 Dose: 25 units/kg/hr, 41.504 mls/hr Documented By: ALESSIA Co-signed By: EM Titration: 02/24/23 15:00 Dose: Infused Documented By: ALESSIA Co-signed By: EM Titration: 02/24/23 07:15 Dose: 25 units/kg/hr, 41.504 mls/hr Documented By: KF Co-signed By: CTS Admin: 02/24/23 02:56 Dose: 24 units/kg/hr, 39.843 mls/hr Documented By: EMILY Co-signed By: KH Titration: 02/24/23 02:54 Dose: Infused Documented By: GC Co-signed By: KH Titration: 02/23/23 19:31 Dose: 24 units/kg/hr, 39.843 mls/hr Documented By: GC Co-signed By: GONZÁLEZ Admin: 02/23/23 13:57 Dose: 22 units/kg/hr, 36.523 mls/hr Documented By: OCTAVIO Co-signed By: YAEL Titration: 02/23/23 13:52 Dose: Infused Documented By: OCTAVIO Co-signed By: YAEL Titration: 02/23/23 13:20 Dose: 22 units/kg/hr, 36.523 mls/hr Documented By: GWENDOLYN Co-signed By: GLADYS Titration: 02/23/23 06:19 Dose: 20 units/kg/hr, 33.203 mls/hr Documented By: GC Co-signed By: MARVIN Admin: 02/22/23 22:01 Dose: 18 units/kg/hr, 29.883 mls/hr Documented By: EMILY Co-signed By: MARVIN Ceftriaxone Sodium 1,000 mg/ (Sodium Chloride) 100 mls @ 200 mls/hr IV Q24H [facility] Lidocaine (Lidocaine 5% Patch) 1 each TOP DAILY [facility] Last Admin: 02/24/23 14:55 Dose: 1 each Documented By: ALESSIA Lorazepam (Lorazepam 0.5 Mg Tablet) 0.5 mg PO Q4HR PRN PRN Reason: Anxiety Last Admin: 02/24/23 11:51 Dose: 0.5 mg Documented By: Admin: 02/24/23 07:33 Dose: 0.5 mg Documented By: Admin: 02/23/23 19:31 Dose: 0.5 mg Documented By: EMILY Losartan Potassium (Losartan 50 Mg Tablet) 50 mg PO BID [facility] Morphine Sulfate (Morphine 4 Mg/Ml Inj) 4 mg IV Q2HR PRN PRN Reason: Pain, Moderate (4-6) Last Admin: 02/24/23 12:26 Dose: 4 mg Documented By: Admin: 02/24/23 10:31 Dose: 4 mg Documented By: Admin: 02/24/23 07:33 Dose: 4 mg Documented By: Admin: 02/24/23 03:16 Dose: 4 mg Documented By: Admin: 02/23/23 21:16 Dose: 4 mg Documented By: Admin: 02/23/23 17:19 Dose: 4 mg Documented By: Admin: 02/23/23 15:11 Dose: 4 mg Documented By: Admin: 02/23/23 13:06 Dose: 4 mg Documented By: OCTAVIO Morphine Sulfate (Morphine Er 15 Mg Tablet) 30 mg PO QID [facility] Last Admin: 02/24/23 16:04 Dose: Not Given Documented By: Admin: 02/24/23 14:54 Dose: 30 mg Documented By: ALESSIA Naloxone HCl (Naloxone 0.4 Mg/Ml Vial) 0.2 mg IV Q2MIN PRN PRN Reason: Opiate Reversal Oxycodone HCl (Oxycodone Ir 10 Mg Tablet) 30 mg PO Q4HR PRN PRN Reason: Pain, Severe (7-10) Last Admin: 02/24/23 14:53 Dose: 30 mg Documented By: ALESSIA Oxycodone HCl (Oxycodone Ir 5 Mg Tablet) 15 mg PO Q4HR PRN PRN Reason: Pain, Moderate (4-6) Phenazopyridine HCl (Phenazopyridine 100 Mg Tablet) 100 mg PO TID [facility] Last Admin: 02/24/23 18:11 Dose: 100 mg Documented By: MURPHY Polyethylene Glycol (Polyethylene Glycol 3350 17 Gm Powd.Pack) 17 gm PO DAILY [facility] Last Admin: 02/24/23 14:52 Dose: 17 gm Documented By: ALESSIA Sennosides (Sennosides 8.6 Mg Tablet) 8.6 mg PO BID [facility] Last Admin: 02/24/23 14:53 Dose: 8.6 mg Documented By: ALESSIA Discontinued Medications Hydrocodone Bitart/Acetaminophen (Hydrocodone/Acet 10/325 Tablet) 1 tab PO Q6HR PRN PRN Reason: Pain, Moderate (4-6) Last Admin: 02/24/23 07:33 Dose: 1 tab Documented By: Admin: 02/24/23 01:16 Dose: 1 tab Documented By: Admin: 02/23/23 15:11 Dose: 1 tab Documented By: YAEL Hydrocodone Bitart/Acetaminophen (Hydrocodone/Acet 10/325 Tablet) 2 tab PO NOW ONE Stop: 02/23/23 18:26 Last Admin: 02/23/23 19:02 Dose: 2 tab Documented By: TORIE Heparin Sodium (Porcine) (Heparin 5,000 Unit/Ml Vial) 6,650 unit 80 unit/kg (6650 unit) IV NOW ONE Stop: 02/22/23 21:31 Last Admin: 02/22/23 21:58 Dose: 6,650 unit Documented By: EMILY Heparin Sodium (Porcine) (Heparin 5,000 Unit/Ml Vial) 5,000 unit 60 unit/kg (5000 unit) IV NOW ONE Stop: 02/23/23 06:14 Last Admin: 02/23/23 06:19 Dose: 5,000 unit Documented By: EMILY Heparin Sodium (Porcine) (Heparin 5,000 Unit/Ml Vial) 5,000 unit 60 unit/kg (5000 unit) IV NOW ONE Stop: 02/23/23 19:14 Last Admin: 02/23/23 19:31 Dose: 5,000 unit Documented By: EMILY Heparin Sodium (Porcine) (Heparin 5,000 Unit/Ml Vial) 2,000 unit IV NOW ONE Stop: 02/24/23 07:19 Last Admin: 02/24/23 07:29 Dose: 2,000 unit Documented By: TED Hydromorphone HCl (Hydromorphone 1 Mg Inj) 1 mg IV NOW ONE Stop: 02/23/23 08:07 Last Admin: 02/23/23 08:20 Dose: 1 mg Documented By: YAEL Ceftriaxone Sodium 2,000 mg/ (Sodium Chloride) 100 mls @ 200 mls/hr IV NOW ONE Stop: 02/23/23 09:58 Last Infusion: 02/23/23 11:15 Dose: Infused Documented By: Admin: 02/23/23 10:33 Dose: 200 mls/hr Documented By: TED Azithromycin 500 mg/ Dextrose 250 mls @ 250 mls/hr IV NOW ONE Stop: 02/23/23 09:58 Last Infusion: 02/23/23 13:01 Dose: Infused Documented By: Admin: 02/23/23 11:19 Dose: 250 mls/hr Documented By: YAEL Ceftriaxone Sodium 2,000 mg/ (Sodium Chloride) 100 mls @ 200 mls/hr IV NOW ONE Stop: 02/24/23 07:16 Last Infusion: 02/24/23 08:10 Dose: Infused Documented By: Admin: 02/24/23 07:34 Dose: 200 mls/hr Documented By: TED Azithromycin 500 mg/ Dextrose 250 mls @ 250 mls/hr IV NOW ONE Stop: 02/24/23 07:16 Last Infusion: 02/24/23 10:18 Dose: Infused Documented By: Admin: 02/24/23 08:32 Dose: 250 mls/hr Documented By: TED Lorazepam (Lorazepam 2 Mg/Ml Inj) 0.5 mg IV NOW ONE Stop: 02/23/23 09:30 Last Admin: 02/23/23 09:58 Dose: 0.5 mg Documented By: SPF Morphine Sulfate (Morphine 4 Mg/Ml Inj) 4 mg IV NOW ONE Stop: 02/23/23 10:25 Last Admin: 02/23/23 10:32 Dose: 4 mg Documented By: TED Morphine Sulfate (Morphine Er 15 Mg Tablet) 30 mg PO Q8HR [facility] Last Admin: 02/24/23 06:06 Dose: 30 mg Documented By: Admin: 02/23/23 23:05 Dose: 30 mg Documented By: EMILY Morphine Sulfate (Morphine Er 15 Mg Tablet) 120 mg PO QID [facility] Last Admin: 02/24/23 14:32 Dose: Not Given Documented By: ALESSIA Naloxone HCl (Naloxone 0.4 Mg/Ml Vial) 0.2 mg IV Q2MIN PRN PRN Reason: Opiate Reversal Oxycodone HCl (Oxycodone Er 20 Mg Tab) 30 mg PO Q8HR [facility] Oxycodone HCl (Oxycodone Er 10 Mg Tab) 30 mg PO Q8H [facility] Last Admin: 02/24/23 08:53 Dose: 30 mg Documented By: TED Phenazopyridine HCl (Phenazopyridine 100 Mg Tablet) 200 mg PO NOW ONE Stop: 02/24/23 07:47 Last Admin: 02/24/23 07:53 Dose: 200 mg Documented By: TED Vital Signs Vital signs: Vital Signs - 8 hr 02/24/23 05:30 02/24/23 06:00 02/24/23 06:16 Pulse Rate 98 H 99 H Respiratory Rate 15 17 Blood Pressure 129/73 Pulse Oximetry 98 98 Oxygen Delivery Method Oxygen Flow Rate 02/24/23 06:16 02/24/23 06:30 02/24/23 07:00 Pulse Rate 101 H 101 H 97 H Respiratory Rate 20 15 18 Blood Pressure Pulse Oximetry 96 95 96 Oxygen Delivery Method Nasal Cannula Oxygen Flow Rate 02/24/23 07:30 02/24/23 08:00 02/24/23 08:30 Pulse Rate 101 H 104 H 127 H Respiratory Rate 18 Blood Pressure Pulse Oximetry 96 97 94 Oxygen Delivery Method Oxygen Flow Rate 02/24/23 09:00 Pulse Rate 111 H Respiratory Rate Blood Pressure Pulse Oximetry 95 Oxygen Delivery Method Nasal Cannula Oxygen Flow Rate 4 <Fernando Aguirre, DO - Last Filed: 02/24/23 06:38> Orders Ordered: Acetaminophen (Acetaminophen 325 Mg Tablet) 650 mg PO Q6H [facility] Last Admin: 02/24/23 18:11 Dose: 650 mg Documented By: BT Lipase/Protease/Amylase (Lipase/Protease/Amylase 08/03/23 Cap) 6 cap PO TIDWM [facility] Last Admin: 02/24/23 16:16 Dose: 6 cap Documented By: MURPHY Apixaban (Apixaban 5 Mg Tablet) 10 mg PO BID [facility] Stop: 03/03/23 09:01 Baclofen (Baclofen 10 Mg Tablet) 10 mg PO TID [facility] Last Admin: 02/24/23 14:56 Dose: 10 mg Documented By: ALESSIA Heparin Sodium/Dextrose (Heparin Drip) 25,000 unit in 500 mls @ 29.883 mls/hr IV CONT [facility]; Protocol Stop: 02/24/23 21:00 Last Admin: 02/24/23 15:00 Dose: 25 units/kg/hr, 41.504 mls/hr Documented By: ALESSIA Co-signed By: EM Titration: 02/24/23 15:00 Dose: Infused Documented By: ALESSIA Co-signed By: EM Titration: 02/24/23 07:15 Dose: 25 units/kg/hr, 41.504 mls/hr Documented By: KF Co-signed By: CTS Admin: 02/24/23 02:56 Dose: 24 units/kg/hr, 39.843 mls/hr Documented By: GC Co-signed By: KH Titration: 02/24/23 02:54 Dose: Infused Documented By: GC Co-signed By: KH Titration: 02/23/23 19:31 Dose: 24 units/kg/hr, 39.843 mls/hr Documented By: GC Co-signed By: HNG Admin: 02/23/23 13:57 Dose: 22 units/kg/hr, 36.523 mls/hr Documented By: OCTAVIO Co-signed By: SPF Titration: 02/23/23 13:52 Dose: Infused Documented By: ES Co-signed By: SPF Titration: 02/23/23 13:20 Dose: 22 units/kg/hr, 36.523 mls/hr Documented By: GWENDOLYN Co-signed By: GLADYS Titration: 02/23/23 06:19 Dose: 20 units/kg/hr, 33.203 mls/hr Documented By: EMILY Co-signed By: MARVIN Admin: 02/22/23 22:01 Dose: 18 units/kg/hr, 29.883 mls/hr Documented By: GC Co-signed By: MARVIN Ceftriaxone Sodium 1,000 mg/ (Sodium Chloride) 100 mls @ 200 mls/hr IV Q24H [facility] Lidocaine (Lidocaine 5% Patch) 1 each TOP DAILY [facility] Last Admin: 02/24/23 14:55 Dose: 1 each Documented By: ALESSIA Lorazepam (Lorazepam 0.5 Mg Tablet) 0.5 mg PO Q4HR PRN PRN Reason: Anxiety Last Admin: 02/24/23 11:51 Dose: 0.5 mg Documented By: Admin: 02/24/23 07:33 Dose: 0.5 mg Documented By: Admin: 02/23/23 19:31 Dose: 0.5 mg Documented By: EMILY Losartan Potassium (Losartan 50 Mg Tablet) 50 mg PO BID [facility] Morphine Sulfate (Morphine 4 Mg/Ml Inj) 4 mg IV Q2HR PRN PRN Reason: Pain, Moderate (4-6) Last Admin: 02/24/23 12:26 Dose: 4 mg Documented By: Admin: 02/24/23 10:31 Dose: 4 mg Documented By: Admin: 02/24/23 07:33 Dose: 4 mg Documented By: Admin: 02/24/23 03:16 Dose: 4 mg Documented By: Admin: 02/23/23 21:16 Dose: 4 mg Documented By: Admin: 02/23/23 17:19 Dose: 4 mg Documented By: Admin: 02/23/23 15:11 Dose: 4 mg Documented By: Admin: 02/23/23 13:06 Dose: 4 mg Documented By: OCTAVIO Morphine Sulfate (Morphine Er 15 Mg Tablet) 30 mg PO QID TOM Last Admin: 02/24/23 16:04 Dose: Not Given Documented By: Admin: 02/24/23 14:54 Dose: 30 mg Documented By: ALESSIA Naloxone HCl (Naloxone 0.4 Mg/Ml Vial) 0.2 mg IV Q2MIN PRN PRN Reason: Opiate Reversal Oxycodone HCl (Oxycodone Ir 10 Mg Tablet) 30 mg PO Q4HR PRN PRN Reason: Pain, Severe (7-10) Last Admin: 02/24/23 14:53 Dose: 30 mg Documented By: ALESSIA Oxycodone HCl (Oxycodone Ir 5 Mg Tablet) 15 mg PO Q4HR PRN PRN Reason: Pain, Moderate (4-6) Phenazopyridine HCl (Phenazopyridine 100 Mg Tablet) 100 mg PO TID [facility] Last Admin: 02/24/23 18:11 Dose: 100 mg Documented By: MURPHY Polyethylene Glycol (Polyethylene Glycol 3350 17 Gm Powd.Pack) 17 gm PO DAILY [facility] Last Admin: 02/24/23 14:52 Dose: 17 gm Documented By: ALESSIA Sennosides (Sennosides 8.6 Mg Tablet) 8.6 mg PO BID [facility] Last Admin: 02/24/23 14:53 Dose: 8.6 mg Documented By: ALESSIA Discontinued Medications Hydrocodone Bitart/Acetaminophen (Hydrocodone/Acet 10/325 Tablet) 1 tab PO Q6HR PRN PRN Reason: Pain, Moderate (4-6) Last Admin: 02/24/23 07:33 Dose: 1 tab Documented By: Admin: 02/24/23 01:16 Dose: 1 tab Documented By: Admin: 02/23/23 15:11 Dose: 1 tab Documented By: YAEL Hydrocodone Bitart/Acetaminophen (Hydrocodone/Acet 10/325 Tablet) 2 tab PO NOW ONE Stop: 02/23/23 18:26 Last Admin: 02/23/23 19:02 Dose: 2 tab Documented By: TORIE Heparin Sodium (Porcine) (Heparin 5,000 Unit/Ml Vial) 6,650 unit 80 unit/kg (6650 unit) IV NOW ONE Stop: 02/22/23 21:31 Last Admin: 02/22/23 21:58 Dose: 6,650 unit Documented By: EMILY Heparin Sodium (Porcine) (Heparin 5,000 Unit/Ml Vial) 5,000 unit 60 unit/kg (5000 unit) IV NOW ONE Stop: 02/23/23 06:14 Last Admin: 02/23/23 06:19 Dose: 5,000 unit Documented By: EMILY Heparin Sodium (Porcine) (Heparin 5,000 Unit/Ml Vial) 5,000 unit 60 unit/kg (5000 unit) IV NOW ONE Stop: 02/23/23 19:14 Last Admin: 02/23/23 19:31 Dose: 5,000 unit Documented By: EMILY Heparin Sodium (Porcine) (Heparin 5,000 Unit/Ml Vial) 2,000 unit IV NOW ONE Stop: 02/24/23 07:19 Last Admin: 02/24/23 07:29 Dose: 2,000 unit Documented By: TED Hydromorphone HCl (Hydromorphone 1 Mg Inj) 1 mg IV NOW ONE Stop: 02/23/23 08:07 Last Admin: 02/23/23 08:20 Dose: 1 mg Documented By: YAEL Ceftriaxone Sodium 2,000 mg/ (Sodium Chloride) 100 mls @ 200 mls/hr IV NOW ONE Stop: 02/23/23 09:58 Last Infusion: 02/23/23 11:15 Dose: Infused Documented By: Admin: 02/23/23 10:33 Dose: 200 mls/hr Documented By: TED Azithromycin 500 mg/ Dextrose 250 mls @ 250 mls/hr IV NOW ONE Stop: 02/23/23 09:58 Last Infusion: 02/23/23 13:01 Dose: Infused Documented By: Admin: 02/23/23 11:19 Dose: 250 mls/hr Documented By: YAEL Ceftriaxone Sodium 2,000 mg/ (Sodium Chloride) 100 mls @ 200 mls/hr IV NOW ONE Stop: 02/24/23 07:16 Last Infusion: 02/24/23 08:10 Dose: Infused Documented By: Admin: 02/24/23 07:34 Dose: 200 mls/hr Documented By: TED Azithromycin 500 mg/ Dextrose 250 mls @ 250 mls/hr IV NOW ONE Stop: 02/24/23 07:16 Last Infusion: 02/24/23 10:18 Dose: Infused Documented By: Admin: 02/24/23 08:32 Dose: 250 mls/hr Documented By: TED Lorazepam (Lorazepam 2 Mg/Ml Inj) 0.5 mg IV NOW ONE Stop: 02/23/23 09:30 Last Admin: 02/23/23 09:58 Dose: 0.5 mg Documented By: SPF Morphine Sulfate (Morphine 4 Mg/Ml Inj) 4 mg IV NOW ONE Stop: 02/23/23 10:25 Last Admin: 02/23/23 10:32 Dose: 4 mg Documented By: TED Morphine Sulfate (Morphine Er 15 Mg Tablet) 30 mg PO Q8HR [facility] Last Admin: 02/24/23 06:06 Dose: 30 mg Documented By: Admin: 02/23/23 23:05 Dose: 30 mg Documented By: EMILY Morphine Sulfate (Morphine Er 15 Mg Tablet) 120 mg PO QID [facility] Last Admin: 02/24/23 14:32 Dose: Not Given Documented By: ALESSIA Naloxone HCl (Naloxone 0.4 Mg/Ml Vial) 0.2 mg IV Q2MIN PRN PRN Reason: Opiate Reversal Oxycodone HCl (Oxycodone Er 20 Mg Tab) 30 mg PO Q8HR [facility] Oxycodone HCl (Oxycodone Er 10 Mg Tab) 30 mg PO Q8H [facility] Last Admin: 02/24/23 08:53 Dose: 30 mg Documented By: TED Phenazopyridine HCl (Phenazopyridine 100 Mg Tablet) 200 mg PO NOW ONE Stop: 02/24/23 07:47 Last Admin: 02/24/23 07:53 Dose: 200 mg Documented By: TED Vital Signs Vital signs: Vital Signs - 8 hr 02/24/23 05:30 02/24/23 06:00 02/24/23 06:16 Pulse Rate 98 H 99 H Respiratory Rate 15 17 Blood Pressure 129/73 Pulse Oximetry 98 98 Oxygen Delivery Method Oxygen Flow Rate 02/24/23 06:16 02/24/23 06:30 02/24/23 07:00 Pulse Rate 101 H 101 H 97 H Respiratory Rate 20 15 18 Blood Pressure Pulse Oximetry 96 95 96 Oxygen Delivery Method Nasal Cannula Oxygen Flow Rate 02/24/23 07:30 02/24/23 08:00 02/24/23 08:30 Pulse Rate 101 H 104 H 127 H Respiratory Rate 18 Blood Pressure Pulse Oximetry 96 97 94 Oxygen Delivery Method Oxygen Flow Rate 02/24/23 09:00 Pulse Rate 111 H Respiratory Rate Blood Pressure Pulse Oximetry 95 Oxygen Delivery Method Nasal Cannula Oxygen Flow Rate 4 MDM - Extremity (Nontraumatic) <Jagruti Swann MD - Last Filed: 02/24/23 19:33> Differential Diagnosis Differential diagnosis: Likely superficial thrombophlebitis, lower extremity edema and deep vein thrombosis of lower extremity Lab Data 02/23/23 20:40 02/23/23 20:40 Labs: Lab Results 02/22/23 02/23/23 02/23/23 Range/Units 20:20 00:30 05:45 WBC 15.4 H 12.6 H (4.5-11.0) X10^3/uL RBC 3.51 L 3.31 L (4.0-5.2) X10^6/uL Hgb 9.8 L 9.3 L (12.0-16.0) g/dL Hct 29.2 L 27.5 L (36-46) % MCV 83.3 83.1 (80-100) fL MCH 27.9 28.0 (26-34) PG MCHC 33.5 33.7 (30-36) % RDW 15.6 H 15.4 H (11.6-14.8) % Plt Count 282 296 (150-400) X10^3/uL Neut % (Auto) 88.3 H 85.9 H (50-75) % Lymph % (Auto) 5.7 L 6.9 L (25-40) % [place] % (Auto) 5.5 5.9 (3-14) % Eos % (Auto) 0.2 L 0.9 L (2-4) % Baso % (Auto) 0.3 0.4 (0-2) % Neut # (Auto) 12792 H 36675 H (2158-5908) /uL Lymph # (Auto) 900 L 900 L (0890-5292) /uL [place] # (Auto) 800 700 (0-900) /uL Eos # (Auto) 0 100 (0-450) /uL Baso # (Auto) 0 0 (0-100) /uL PT 15.7 H (9.4-12.5) SECONDS INR 1.4 H (0.9-1.3) APTT 28 53 H D (25.1-36.5) SECONDS Sodium 131 L 133 L (137-145) mmol/L Potassium 3.6 3.6 (3.4-5.1) mmol/L Chloride 96 L 96 L (98-107) mmol/L Carbon Dioxide 26 27 (22-32) mmol/L BUN 14 9 (7-17) mg/dL Creatinine 0.48 L 0.44 L (0.52-1.04) mg/dL Estimated GFR > 60 > 60 (>60) mL/min BUN/Creatinine Ratio 29.2 H 20.5 (6-22) Glucose 130 H 134 H (70-100) mg/dL Lactate (0.7-2.1) mmol/L Calcium 9.7 9.3 (8.4-10.2) mg/dL Total Bilirubin 0.7 (0.2-1.3) mg/dL AST 44 H (14-36) IU/L ALT 25 (<35) IU/L Alkaline Phosphatase 182 H (38-126) U/L Total Protein 6.6 (6.3-8.2) g/dL Albumin 3.3 L (3.5-5.0) g/dL Globulin 3.3 (1.7-4.1) g/dL Albumin/Globulin Ratio 1.0 (1.0-2.8) Procalcitonin (<0.5) ng/mL Urine Color Urine Appearance Urine pH (4.5-8.0) Ur Specific [place] (1.000-1.035) Urine Protein (Negative) Urine Glucose (UA) (Negative) g/dL Urine Ketones (NEGATIVE) Urine Occult Blood (Negative) Urine Nitrate (Negative) Urine Bilirubin (NEGATIVE) Urine Urobilinogen (0.2) E.U./dL Ur Leukocyte Esterase (NEGATIVE) Urine RBC (0-5/HPF) Urine WBC (0-5/HPF) Ur Squamous Epith Cells (0-5/HPF) Urine Bacteria (None) Ur Culture Indicated? Blood Type O Negative Antibody Screen Negative 02/23/23 02/23/23 02/23/23 Range/Units 10:25 12:00 18:15 WBC (4.5-11.0) X10^3/uL RBC (4.0-5.2) X10^6/uL Hgb (12.0-16.0) g/dL Hct (36-46) % MCV (80-100) fL MCH (26-34) PG MCHC (30-36) % RDW (11.6-14.8) % Plt Count (150-400) X10^3/uL Neut % (Auto) (50-75) % Lymph % (Auto) (25-40) % [place] % (Auto) (3-14) % Eos % (Auto) (2-4) % Baso % (Auto) (0-2) % Neut # (Auto) (9452-5204) /uL Lymph # (Auto) (1739-0839) /uL [place] # (Auto) (0-900) /uL Eos # (Auto) (0-450) /uL Baso # (Auto) (0-100) /uL PT (9.4-12.5) SECONDS INR (0.9-1.3) APTT 51 H 52 H (25.1-36.5) SECONDS Sodium (137-145) mmol/L Potassium (3.4-5.1) mmol/L Chloride (98-107) mmol/L Carbon Dioxide (22-32) mmol/L BUN (7-17) mg/dL Creatinine (0.52-1.04) mg/dL Estimated GFR (>60) mL/min BUN/Creatinine Ratio (6-22) Glucose (70-100) mg/dL Lactate 1.3 (0.7-2.1) mmol/L Calcium (8.4-10.2) mg/dL Total Bilirubin (0.2-1.3) mg/dL AST (14-36) IU/L ALT (<35) IU/L Alkaline Phosphatase (38-126) U/L Total Protein (6.3-8.2) g/dL Albumin (3.5-5.0) g/dL Globulin (1.7-4.1) g/dL Albumin/Globulin Ratio (1.0-2.8) Procalcitonin 0.29 (<0.5) ng/mL Urine Color Urine Appearance Urine pH (4.5-8.0) Ur Specific [place] (1.000-1.035) Urine Protein (Negative) Urine Glucose (UA) (Negative) g/dL Urine Ketones (NEGATIVE) Urine Occult Blood (Negative) Urine Nitrate (Negative) Urine Bilirubin (NEGATIVE) Urine Urobilinogen (0.2) E.U./dL Ur Leukocyte Esterase (NEGATIVE) Urine RBC (0-5/HPF) Urine WBC (0-5/HPF) Ur Squamous Epith Cells (0-5/HPF) Urine Bacteria (None) Ur Culture Indicated? Blood Type Antibody Screen 02/23/23 02/24/23 02/24/23 Range/Units 20:40 00:30 06:20 WBC 13.5 H (4.5-11.0) X10^3/uL RBC 3.35 L (4.0-5.2) X10^6/uL Hgb 9.3 L (12.0-16.0) g/dL Hct 28.1 L (36-46) % MCV 83.7 (80-100) fL MCH 27.8 (26-34) PG MCHC 33.2 (30-36) % RDW 15.7 H (11.6-14.8) % Plt Count 282 (150-400) X10^3/uL Neut % (Auto) 86.2 H (50-75) % Lymph % (Auto) 6.3 L (25-40) % [place] % (Auto) 6.2 (3-14) % Eos % (Auto) 0.8 L (2-4) % Baso % (Auto) 0.5 (0-2) % Neut # (Auto) 78835 H (5174-0375) /uL Lymph # (Auto) 800 L (5662-0534) /uL [place] # (Auto) 800 (0-900) /uL Eos # (Auto) 100 (0-450) /uL Baso # (Auto) 100 (0-100) /uL PT (9.4-12.5) SECONDS INR (0.9-1.3) APTT 79 H* D 62 H D (25.1-36.5) SECONDS Sodium 129 L (137-145) mmol/L Potassium 4.0 (3.4-5.1) mmol/L Chloride 95 L (98-107) mmol/L Carbon Dioxide 26 (22-32) mmol/L BUN 12 (7-17) mg/dL Creatinine 0.48 L (0.52-1.04) mg/dL Estimated GFR > 60 (>60) mL/min BUN/Creatinine Ratio 25.0 H (6-22) Glucose 157 H (70-100) mg/dL Lactate (0.7-2.1) mmol/L Calcium 9.2 (8.4-10.2) mg/dL Total Bilirubin (0.2-1.3) mg/dL AST (14-36) IU/L ALT (<35) IU/L Alkaline Phosphatase (38-126) U/L Total Protein (6.3-8.2) g/dL Albumin (3.5-5.0) g/dL Globulin (1.7-4.1) g/dL Albumin/Globulin Ratio (1.0-2.8) Procalcitonin (<0.5) ng/mL Urine Color Urine Appearance Urine pH (4.5-8.0) Ur Specific [place] (1.000-1.035) Urine Protein (Negative) Urine Glucose (UA) (Negative) g/dL Urine Ketones (NEGATIVE) Urine Occult Blood (Negative) Urine Nitrate (Negative) Urine Bilirubin (NEGATIVE) Urine Urobilinogen (0.2) E.U./dL Ur Leukocyte Esterase (NEGATIVE) Urine RBC (0-5/HPF) Urine WBC (0-5/HPF) Ur Squamous Epith Cells (0-5/HPF) Urine Bacteria (None) Ur Culture Indicated? Blood Type Antibody Screen 02/24/23 Range/Units 07:56 WBC (4.5-11.0) X10^3/uL RBC (4.0-5.2) X10^6/uL Hgb (12.0-16.0) g/dL Hct (36-46) % MCV (80-100) fL MCH (26-34) PG MCHC (30-36) % RDW (11.6-14.8) % Plt Count (150-400) X10^3/uL Neut % (Auto) (50-75) % Lymph % (Auto) (25-40) % [place] % (Auto) (3-14) % Eos % (Auto) (2-4) % Baso % (Auto) (0-2) % Neut # (Auto) (6561-3476) /uL Lymph # (Auto) (7217-4902) /uL [place] # (Auto) (0-900) /uL Eos # (Auto) (0-450) /uL Baso # (Auto) (0-100) /uL PT (9.4-12.5) SECONDS INR (0.9-1.3) APTT (25.1-36.5) SECONDS Sodium (137-145) mmol/L Potassium (3.4-5.1) mmol/L Chloride (98-107) mmol/L Carbon Dioxide (22-32) mmol/L BUN (7-17) mg/dL Creatinine (0.52-1.04) mg/dL Estimated GFR (>60) mL/min BUN/Creatinine Ratio (6-22) Glucose (70-100) mg/dL Lactate (0.7-2.1) mmol/L Calcium (8.4-10.2) mg/dL Total Bilirubin (0.2-1.3) mg/dL AST (14-36) IU/L ALT (<35) IU/L Alkaline Phosphatase (38-126) U/L Total Protein (6.3-8.2) g/dL Albumin (3.5-5.0) g/dL Globulin (1.7-4.1) g/dL Albumin/Globulin Ratio (1.0-2.8) Procalcitonin (<0.5) ng/mL Urine Color Pinkish Urine Appearance Sl cloudy Urine pH 6.5 (4.5-8.0) Ur Specific [place] 1.010 (1.000-1.035) Urine Protein 2+ H (Negative) Urine Glucose (UA) Negative (Negative) g/dL Urine Ketones Negative (NEGATIVE) Urine Occult Blood 3+ H (Negative) Urine Nitrate Negative (Negative) Urine Bilirubin Negative (NEGATIVE) Urine Urobilinogen 0.2 (0.2) E.U./dL Ur Leukocyte Esterase 2+ H (NEGATIVE) Urine RBC >100/hpf H (0-5/HPF) Urine WBC 30-100/hpf H (0-5/HPF) Ur Squamous Epith Cells 10-30 /hpf H (0-5/HPF) Urine Bacteria Many (>30) H (None) Ur Culture Indicated? Specimen cultured Blood Type Antibody Screen [facility] Narrative Medical decision making narrative: Patient with known DVT presenting for worsening lower extremity swelling. She is not on anticoagulation. There is a marked sized difference between the left lower extremity and the right lower extremity. The left lower extremity is cooler to touch with noticeable pallor compared to the right lower extremity. Dopplerable pulses are obtainable bilaterally. Received a call from Radiology stating that the previous DVT has become more extensive in his now occlusive, which would correlate to patient's physical exam. I discussed patient's case with Interventional Radiology at [facility] Dr. Marroquin, who agreed that based on description of patient's symptoms as well as finding on ultrasound patient would be a thrombectomy candidate. Unfortunately [facility] has no open beds and patient was placed on a holding list. In the interim patient will be started on heparin bolus and drip. Patient and informed of diagnosis and plan, they are amenable to staying for transfer. Overnight no beds available for transfer. Care of patient signed to Dr. Esparza at 0700 Dr. Esparza-patient signed out to me by Dr. Swann I have seen evaluated patient myself. 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 It appears that she was discharged on home oxygen February 05. However there were mixed reports of possibly worsening shortness of breath. She continues to be tachycardic in the ED she is currently on 3 L of O2. She is accepted to [facility] waiting for bed placement. Left lower extremity is swollen decreased pulse. She is not been on anticoagulation due to anemia. During her admission she was given blood transfusion. She is currently on heparin drip. Hemoglobin today 9.8 hematocrit 29.2 previously 8.7 and 25.5 respectively. 11:[address] Raymundo Interventional Radiology at [facility] who states that patient is not a candidate due to advanced cancer and recommends anticoagulation only 11:30-Dr. Martinez hospitalist updated on patient's symptoms and test results state that patient would benefit from going to [facility] and he spoke with Dr. Chen patient's oncologist who agreed 11:50 Oncology at [facility] updated patient's symptoms test results states that they agree patient is probably not a candidate for thrombectomy due to advanced cancer stage would likely forearm another clot. 13:15 Dr Cunningham IR at [facility] recommends anticoagulation 1st before thrombectomy. Dr. Martinez again updated on recommendations. He called over to [facility]. Dr Aguirre: Received turned over. Review patient's history and physical and workup. Patient has been persistently tachycardic and does have a heart rate in the 120s when she is exerting herself such as getting up to use the restroom. She is now therapeutic on her heparin. Repeat CBC and chemistry showed no acute changes. She will need repeat antibiotics today. Attempted to contact [facility] overnight however there still is no bed availability. I do feel that transfer to [facility] is best for the patient is this is where her oncologist is located and also where specialist such as Interventional Radiology who stated that there is potentially intervention that can be done. Will turn the patient back over to Dr. Esparza to continue to observe and disposition. 02/24/[address] Esparza, patient seen evaluated by myself. Leg has improved significantly but still swollen palpable pulse today. Tolerating heparin drip and anticoagulation. Still has some mild leukocytosis. Now today having some frequent despite Rocephin urinalysis does show blood and bacteria. [facility] still no bed available. I did discuss with Dr. Noe hospitalist. Reports that if tolerating anticoagulation swelling and symptoms have improved would not pursue thrombectomy, Dr. Molina accepts patient <Lulu Esparza, DO - Last Filed: 02/24/23 13:10> Lab Data Labs: Lab Results 02/22/23 02/23/23 02/23/23 Range/Units 20:20 00:30 05:45 WBC 15.4 H 12.6 H (4.5-11.0) X10^3/uL RBC 3.51 L 3.31 L (4.0-5.2) X10^6/uL Hgb 9.8 L 9.3 L (12.0-16.0) g/dL Hct 29.2 L 27.5 L (36-46) % MCV 83.3 83.1 (80-100) fL MCH 27.9 28.0 (26-34) PG MCHC 33.5 33.7 (30-36) % RDW 15.6 H 15.4 H (11.6-14.8) % Plt Count 282 296 (150-400) X10^3/uL Neut % (Auto) 88.3 H 85.9 H (50-75) % Lymph % (Auto) 5.7 L 6.9 L (25-40) % [place] % (Auto) 5.5 5.9 (3-14) % Eos % (Auto) 0.2 L 0.9 L (2-4) % Baso % (Auto) 0.3 0.4 (0-2) % Neut # (Auto) 00934 H 53625 H (2525-8479) /uL Lymph # (Auto) 900 L 900 L (5593-3090) /uL [place] # (Auto) 800 700 (0-900) /uL Eos # (Auto) 0 100 (0-450) /uL Baso # (Auto) 0 0 (0-100) /uL PT 15.7 H (9.4-12.5) SECONDS INR 1.4 H (0.9-1.3) APTT 28 53 H D (25.1-36.5) SECONDS Sodium 131 L 133 L (137-145) mmol/L Potassium 3.6 3.6 (3.4-5.1) mmol/L Chloride 96 L 96 L (98-107) mmol/L Carbon Dioxide 26 27 (22-32) mmol/L BUN 14 9 (7-17) mg/dL Creatinine 0.48 L 0.44 L (0.52-1.04) mg/dL Estimated GFR > 60 > 60 (>60) mL/min BUN/Creatinine Ratio 29.2 H 20.5 (6-22) Glucose 130 H 134 H (70-100) mg/dL Lactate (0.7-2.1) mmol/L Calcium 9.7 9.3 (8.4-10.2) mg/dL Total Bilirubin 0.7 (0.2-1.3) mg/dL AST 44 H (14-36) IU/L ALT 25 (<35) IU/L Alkaline Phosphatase 182 H (38-126) U/L Total Protein 6.6 (6.3-8.2) g/dL Albumin 3.3 L (3.5-5.0) g/dL Globulin 3.3 (1.7-4.1) g/dL Albumin/Globulin Ratio 1.0 (1.0-2.8) Procalcitonin (<0.5) ng/mL Urine Color Urine Appearance Urine pH (4.5-8.0) Ur Specific [place] (1.000-1.035) Urine Protein (Negative) Urine Glucose (UA) (Negative) g/dL Urine Ketones (NEGATIVE) Urine Occult Blood (Negative) Urine Nitrate (Negative) Urine Bilirubin (NEGATIVE) Urine Urobilinogen (0.2) E.U./dL Ur Leukocyte Esterase (NEGATIVE) Urine RBC (0-5/HPF) Urine WBC (0-5/HPF) Ur Squamous Epith Cells (0-5/HPF) Urine Bacteria (None) Ur Culture Indicated? Blood Type O Negative Antibody Screen Negative 02/23/23 02/23/23 02/23/23 Range/Units 10:25 12:00 18:15 WBC (4.5-11.0) X10^3/uL RBC (4.0-5.2) X10^6/uL Hgb (12.0-16.0) g/dL Hct (36-46) % MCV (80-100) fL MCH (26-34) PG MCHC (30-36) % RDW (11.6-14.8) % Plt Count (150-400) X10^3/uL Neut % (Auto) (50-75) % Lymph % (Auto) (25-40) % [place] % (Auto) (3-14) % Eos % (Auto) (2-4) % Baso % (Auto) (0-2) % Neut # (Auto) (9611-6562) /uL Lymph # (Auto) (7185-0063) /uL [place] # (Auto) (0-900) /uL Eos # (Auto) (0-450) /uL Baso # (Auto) (0-100) /uL PT (9.4-12.5) SECONDS INR (0.9-1.3) APTT 51 H 52 H (25.1-36.5) SECONDS Sodium (137-145) mmol/L Potassium (3.4-5.1) mmol/L Chloride (98-107) mmol/L Carbon Dioxide (22-32) mmol/L BUN (7-17) mg/dL Creatinine (0.52-1.04) mg/dL Estimated GFR (>60) mL/min BUN/Creatinine Ratio (6-22) Glucose (70-100) mg/dL Lactate 1.3 (0.7-2.1) mmol/L Calcium (8.4-10.2) mg/dL Total Bilirubin (0.2-1.3) mg/dL AST (14-36) IU/L ALT (<35) IU/L Alkaline Phosphatase (38-126) U/L Total Protein (6.3-8.2) g/dL Albumin (3.5-5.0) g/dL Globulin (1.7-4.1) g/dL Albumin/Globulin Ratio (1.0-2.8) Procalcitonin 0.29 (<0.5) ng/mL Urine Color Urine Appearance Urine pH (4.5-8.0) Ur Specific [place] (1.000-1.035) Urine Protein (Negative) Urine Glucose (UA) (Negative) g/dL Urine Ketones (NEGATIVE) Urine Occult Blood (Negative) Urine Nitrate (Negative) Urine Bilirubin (NEGATIVE) Urine Urobilinogen (0.2) E.U./dL Ur Leukocyte Esterase (NEGATIVE) Urine RBC (0-5/HPF) Urine WBC (0-5/HPF) Ur Squamous Epith Cells (0-5/HPF) Urine Bacteria (None) Ur Culture Indicated? Blood Type Antibody Screen 02/23/23 02/24/23 02/24/23 Range/Units 20:40 00:30 06:20 WBC 13.5 H (4.5-11.0) X10^3/uL RBC 3.35 L (4.0-5.2) X10^6/uL Hgb 9.3 L (12.0-16.0) g/dL Hct 28.1 L (36-46) % MCV 83.7 (80-100) fL MCH 27.8 (26-34) PG MCHC 33.2 (30-36) % RDW 15.7 H (11.6-14.8) % Plt Count 282 (150-400) X10^3/uL Neut % (Auto) 86.2 H (50-75) % Lymph % (Auto) 6.3 L (25-40) % [place] % (Auto) 6.2 (3-14) % Eos % (Auto) 0.8 L (2-4) % Baso % (Auto) 0.5 (0-2) % Neut # (Auto) 06854 H (7259-5825) /uL Lymph # (Auto) 800 L (9990-8580) /uL [place] # (Auto) 800 (0-900) /uL Eos # (Auto) 100 (0-450) /uL Baso # (Auto) 100 (0-100) /uL PT (9.4-12.5) SECONDS INR (0.9-1.3) APTT 79 H* D 62 H D (25.1-36.5) SECONDS Sodium 129 L (137-145) mmol/L Potassium 4.0 (3.4-5.1) mmol/L Chloride 95 L (98-107) mmol/L Carbon Dioxide 26 (22-32) mmol/L BUN 12 (7-17) mg/dL Creatinine 0.48 L (0.52-1.04) mg/dL Estimated GFR > 60 (>60) mL/min BUN/Creatinine Ratio 25.0 H (6-22) Glucose 157 H (70-100) mg/dL Lactate (0.7-2.1) mmol/L Calcium 9.2 (8.4-10.2) mg/dL Total Bilirubin (0.2-1.3) mg/dL AST (14-36) IU/L ALT (<35) IU/L Alkaline Phosphatase (38-126) U/L Total Protein (6.3-8.2) g/dL Albumin (3.5-5.0) g/dL Globulin (1.7-4.1) g/dL Albumin/Globulin Ratio (1.0-2.8) Procalcitonin (<0.5) ng/mL Urine Color Urine Appearance Urine pH (4.5-8.0) Ur Specific [place] (1.000-1.035) Urine Protein (Negative) Urine Glucose (UA) (Negative) g/dL Urine Ketones (NEGATIVE) Urine Occult Blood (Negative) Urine Nitrate (Negative) Urine Bilirubin (NEGATIVE) Urine Urobilinogen (0.2) E.U./dL Ur Leukocyte Esterase (NEGATIVE) Urine RBC (0-5/HPF) Urine WBC (0-5/HPF) Ur Squamous Epith Cells (0-5/HPF) Urine Bacteria (None) Ur Culture Indicated? Blood Type Antibody Screen 02/24/23 Range/Units 07:56 WBC (4.5-11.0) X10^3/uL RBC (4.0-5.2) X10^6/uL Hgb (12.0-16.0) g/dL Hct (36-46) % MCV (80-100) fL MCH (26-34) PG MCHC (30-36) % RDW (11.6-14.8) % Plt Count (150-400) X10^3/uL Neut % (Auto) (50-75) % Lymph % (Auto) (25-40) % [place] % (Auto) (3-14) % Eos % (Auto) (2-4) % Baso % (Auto) (0-2) % Neut # (Auto) (9580-6146) /uL Lymph # (Auto) (8985-5223) /uL [place] # (Auto) (0-900) /uL Eos # (Auto) (0-450) /uL Baso # (Auto) (0-100) /uL PT (9.4-12.5) SECONDS INR (0.9-1.3) APTT (25.1-36.5) SECONDS Sodium (137-145) mmol/L Potassium (3.4-5.1) mmol/L Chloride (98-107) mmol/L Carbon Dioxide (22-32) mmol/L BUN (7-17) mg/dL Creatinine (0.52-1.04) mg/dL Estimated GFR (>60) mL/min BUN/Creatinine Ratio (6-22) Glucose (70-100) mg/dL Lactate (0.7-2.1) mmol/L Calcium (8.4-10.2) mg/dL Total Bilirubin (0.2-1.3) mg/dL AST (14-36) IU/L ALT (<35) IU/L Alkaline Phosphatase (38-126) U/L Total Protein (6.3-8.2) g/dL Albumin (3.5-5.0) g/dL Globulin (1.7-4.1) g/dL Albumin/Globulin Ratio (1.0-2.8) Procalcitonin (<0.5) ng/mL Urine Color Pinkish Urine Appearance Sl cloudy Urine pH 6.5 (4.5-8.0) Ur Specific [place] 1.010 (1.000-1.035) Urine Protein 2+ H (Negative) Urine Glucose (UA) Negative (Negative) g/dL Urine Ketones Negative (NEGATIVE) Urine Occult Blood 3+ H (Negative) Urine Nitrate Negative (Negative) Urine Bilirubin Negative (NEGATIVE) Urine Urobilinogen 0.2 (0.2) E.U./dL Ur Leukocyte Esterase 2+ H (NEGATIVE) Urine RBC >100/hpf H (0-5/HPF) Urine WBC 30-100/hpf H (0-5/HPF) Ur Squamous Epith Cells 10-30 /hpf H (0-5/HPF) Urine Bacteria Many (>30) H (None) Ur Culture Indicated? Specimen cultured Blood Type Antibody Screen MDM Narrative Medical decision making narrative: Patient with known DVT presenting for worsening lower extremity swelling. She is not on anticoagulation. There is a marked sized difference between the left lower extremity and the right lower extremity. The left lower extremity is cooler to touch with noticeable pallor compared to the right lower extremity. Dopplerable pulses are obtainable bilaterally. Received a call from Radiology stating that the previous DVT has become more extensive in his now occlusive, which would correlate to patient's physical exam. I discussed patient's case with Interventional Radiology at [facility] Dr. Marroquin, who agreed that based on description of patient's symptoms as well as finding on ultrasound patient would be a thrombectomy candidate. Unfortunately [facility] has no open beds and patient was placed on a holding list. In the interim patient will be started on heparin bolus and drip. Patient and informed of diagnosis and plan, they are amenable to staying for transfer. Dr. Esparza-patient signed out to me by Dr. Swann I have seen evaluated patient myself. 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 It appears that she was discharged on home oxygen February 05. However there were mixed reports of possibly worsening shortness of breath. She continues to be tachycardic in the ED she is currently on 3 L of O2. She is accepted to [facility] waiting for bed placement. Left lower extremity is swollen decreased pulse. She is not been on anticoagulation due to anemia. During her admission she was given blood transfusion. She is currently on heparin drip. Hemoglobin today 9.8 hematocrit 29.2 previously 8.7 and 25.5 respectively. 11:[address] Raymundo Interventional Radiology at [facility] who states that patient is not a candidate due to advanced cancer and recommends anticoagulation only 11:30-Dr. Martinez hospitalist updated on patient's symptoms and test results state that patient would benefit from going to [facility] and he spoke with Dr. Chen patient's oncologist who agreed 11:50 Oncology at [facility] updated patient's symptoms test results states that they agree patient is probably not a candidate for thrombectomy due to advanced cancer stage would likely forearm another clot. 13:[address] Cunningham IR at [facility] recommends anticoagulation 1st before thrombectomy. Dr. Martinez again updated on recommendations. He called over to [facility]. Dr Aguirre: Received turned over. Review patient's history and physical and workup. Patient has been persistently tachycardic and does have a heart rate in the 120s when she is exerting herself such as getting up to use the restroom. She is now therapeutic on her heparin. Repeat CBC and chemistry showed no acute changes. She will need repeat antibiotics today. Attempted to contact [facility] overnight however there still is no bed availability. I do feel that transfer to [facility] is best for the patient is this is where her oncologist is located and also where specialist such as Interventional Radiology who stated that there is potentially intervention that can be done. Will turn the patient back over to Dr. Esparza to continue to observe and disposition. 02/24/[address] Esparza, patient seen evaluated by myself. Leg has improved significantly but still swollen palpable pulse today. Tolerating heparin drip and anticoagulation. Still has some mild leukocytosis. Now today having some frequent despite Rocephin urinalysis does show blood and bacteria. [facility] still no bed available. I did discuss with Dr. Noe hospitalist. Reports that if tolerating anticoagulation swelling and symptoms have improved would not pursue thrombectomy, Dr. Molina accepts patient <Fernando Aguirre DO - Last Filed: 02/24/23 06:38> Lab Data Labs: Lab Results 02/22/23 02/23/23 02/23/23 Range/Units 20:20 00:30 05:45 WBC 15.4 H 12.6 H (4.5-11.0) X10^3/uL RBC 3.51 L 3.31 L (4.0-5.2) X10^6/uL Hgb 9.8 L 9.3 L (12.0-16.0) g/dL Hct 29.2 L 27.5 L (36-46) % MCV 83.3 83.1 (80-100) fL MCH 27.9 28.0 (26-34) PG MCHC 33.5 33.7 (30-36) % RDW 15.6 H 15.4 H (11.6-14.8) % Plt Count 282 296 (150-400) X10^3/uL Neut % (Auto) 88.3 H 85.9 H (50-75) % Lymph % (Auto) 5.7 L 6.9 L (25-40) % [place] % (Auto) 5.5 5.9 (3-14) % Eos % (Auto) 0.2 L 0.9 L (2-4) % Baso % (Auto) 0.3 0.4 (0-2) % Neut # (Auto) 80285 H 34132 H (1782-0048) /uL Lymph # (Auto) 900 L 900 L (8759-6814) /uL [place] # (Auto) 800 700 (0-900) /uL Eos # (Auto) 0 100 (0-450) /uL Baso # (Auto) 0 0 (0-100) /uL PT 15.7 H (9.4-12.5) SECONDS INR 1.4 H (0.9-1.3) APTT 28 53 H D (25.1-36.5) SECONDS Sodium 131 L 133 L (137-145) mmol/L Potassium 3.6 3.6 (3.4-5.1) mmol/L Chloride 96 L 96 L (98-107) mmol/L Carbon Dioxide 26 27 (22-32) mmol/L BUN 14 9 (7-17) mg/dL Creatinine 0.48 L 0.44 L (0.52-1.04) mg/dL Estimated GFR > 60 > 60 (>60) mL/min BUN/Creatinine Ratio 29.2 H 20.5 (6-22) Glucose 130 H 134 H (70-100) mg/dL Lactate (0.7-2.1) mmol/L Calcium 9.7 9.3 (8.4-10.2) mg/dL Total Bilirubin 0.7 (0.2-1.3) mg/dL AST 44 H (14-36) IU/L ALT 25 (<35) IU/L Alkaline Phosphatase 182 H (38-126) U/L Total Protein 6.6 (6.3-8.2) g/dL Albumin 3.3 L (3.5-5.0) g/dL Globulin 3.3 (1.7-4.1) g/dL Albumin/Globulin Ratio 1.0 (1.0-2.8) Procalcitonin (<0.5) ng/mL Urine Color Urine Appearance Urine pH (4.5-8.0) Ur Specific [place] (1.000-1.035) Urine Protein (Negative) Urine Glucose (UA) (Negative) g/dL Urine Ketones (NEGATIVE) Urine Occult Blood (Negative) Urine Nitrate (Negative) Urine Bilirubin (NEGATIVE) Urine Urobilinogen (0.2) E.U./dL Ur Leukocyte Esterase (NEGATIVE) Urine RBC (0-5/HPF) Urine WBC (0-5/HPF) Ur Squamous Epith Cells (0-5/HPF) Urine Bacteria (None) Ur Culture Indicated? Blood Type O Negative Antibody Screen Negative 02/23/23 02/23/23 02/23/23 Range/Units 10:25 12:00 18:15 WBC (4.5-11.0) X10^3/uL RBC (4.0-5.2) X10^6/uL Hgb (12.0-16.0) g/dL Hct (36-46) % MCV (80-100) fL MCH (26-34) PG MCHC (30-36) % RDW (11.6-14.8) % Plt Count (150-400) X10^3/uL Neut % (Auto) (50-75) % Lymph % (Auto) (25-40) % [place] % (Auto) (3-14) % Eos % (Auto) (2-4) % Baso % (Auto) (0-2) % Neut # (Auto) (3684-1187) /uL Lymph # (Auto) (8366-8432) /uL [place] # (Auto) (0-900) /uL Eos # (Auto) (0-450) /uL Baso # (Auto) (0-100) /uL PT (9.4-12.5) SECONDS INR (0.9-1.3) APTT 51 H 52 H (25.1-36.5) SECONDS Sodium (137-145) mmol/L Potassium (3.4-5.1) mmol/L Chloride (98-107) mmol/L Carbon Dioxide (22-32) mmol/L BUN (7-17) mg/dL Creatinine (0.52-1.04) mg/dL Estimated GFR (>60) mL/min BUN/Creatinine Ratio (6-22) Glucose (70-100) mg/dL Lactate 1.3 (0.7-2.1) mmol/L Calcium (8.4-10.2) mg/dL Total Bilirubin (0.2-1.3) mg/dL AST (14-36) IU/L ALT (<35) IU/L Alkaline Phosphatase (38-126) U/L Total Protein (6.3-8.2) g/dL Albumin (3.5-5.0) g/dL Globulin (1.7-4.1) g/dL Albumin/Globulin Ratio (1.0-2.8) Procalcitonin 0.29 (<0.5) ng/mL Urine Color Urine Appearance Urine pH (4.5-8.0) Ur Specific [place] (1.000-1.035) Urine Protein (Negative) Urine Glucose (UA) (Negative) g/dL Urine Ketones (NEGATIVE) Urine Occult Blood (Negative) Urine Nitrate (Negative) Urine Bilirubin (NEGATIVE) Urine Urobilinogen (0.2) E.U./dL Ur Leukocyte Esterase (NEGATIVE) Urine RBC (0-5/HPF) Urine WBC (0-5/HPF) Ur Squamous Epith Cells (0-5/HPF) Urine Bacteria (None) Ur Culture Indicated? Blood Type Antibody Screen 02/23/23 02/24/23 02/24/23 Range/Units 20:40 00:30 06:20 WBC 13.5 H (4.5-11.0) X10^3/uL RBC 3.35 L (4.0-5.2) X10^6/uL Hgb 9.3 L (12.0-16.0) g/dL Hct 28.1 L (36-46) % MCV 83.7 (80-100) fL MCH 27.8 (26-34) PG MCHC 33.2 (30-36) % RDW 15.7 H (11.6-14.8) % Plt Count 282 (150-400) X10^3/uL Neut % (Auto) 86.2 H (50-75) % Lymph % (Auto) 6.3 L (25-40) % [place] % (Auto) 6.2 (3-14) % Eos % (Auto) 0.8 L (2-4) % Baso % (Auto) 0.5 (0-2) % Neut # (Auto) 82225 H (4211-3821) /uL Lymph # (Auto) 800 L (4172-5415) /uL [place] # (Auto) 800 (0-900) /uL Eos # (Auto) 100 (0-450) /uL Baso # (Auto) 100 (0-100) /uL PT (9.4-12.5) SECONDS INR (0.9-1.3) APTT 79 H* D 62 H D (25.1-36.5) SECONDS Sodium 129 L (137-145) mmol/L Potassium 4.0 (3.4-5.1) mmol/L Chloride 95 L (98-107) mmol/L Carbon Dioxide 26 (22-32) mmol/L BUN 12 (7-17) mg/dL Creatinine 0.48 L (0.52-1.04) mg/dL Estimated GFR > 60 (>60) mL/min BUN/Creatinine Ratio 25.0 H (6-22) Glucose 157 H (70-100) mg/dL Lactate (0.7-2.1) mmol/L Calcium 9.2 (8.4-10.2) mg/dL Total Bilirubin (0.2-1.3) mg/dL AST (14-36) IU/L ALT (<35) IU/L Alkaline Phosphatase (38-126) U/L Total Protein (6.3-8.2) g/dL Albumin (3.5-5.0) g/dL Globulin (1.7-4.1) g/dL Albumin/Globulin Ratio (1.0-2.8) Procalcitonin (<0.5) ng/mL Urine Color Urine Appearance Urine pH (4.5-8.0) Ur Specific [place] (1.000-1.035) Urine Protein (Negative) Urine Glucose (UA) (Negative) g/dL Urine Ketones (NEGATIVE) Urine Occult Blood (Negative) Urine Nitrate (Negative) Urine Bilirubin (NEGATIVE) Urine Urobilinogen (0.2) E.U./dL Ur Leukocyte Esterase (NEGATIVE) Urine RBC (0-5/HPF) Urine WBC (0-5/HPF) Ur Squamous Epith Cells (0-5/HPF) Urine Bacteria (None) Ur Culture Indicated? Blood Type Antibody Screen 02/24/23 Range/Units 07:56 WBC (4.5-11.0) X10^3/uL RBC (4.0-5.2) X10^6/uL Hgb (12.0-16.0) g/dL Hct (36-46) % MCV (80-100) fL MCH (26-34) PG MCHC (30-36) % RDW (11.6-14.8) % Plt Count (150-400) X10^3/uL Neut % (Auto) (50-75) % Lymph % (Auto) (25-40) % [place] % (Auto) (3-14) % Eos % (Auto) (2-4) % Baso % (Auto) (0-2) % Neut # (Auto) (1401-0485) /uL Lymph # (Auto) (8837-0710) /uL [place] # (Auto) (0-900) /uL Eos # (Auto) (0-450) /uL Baso # (Auto) (0-100) /uL PT (9.4-12.5) SECONDS INR (0.9-1.3) APTT (25.1-36.5) SECONDS Sodium (137-145) mmol/L Potassium (3.4-5.1) mmol/L Chloride (98-107) mmol/L Carbon Dioxide (22-32) mmol/L BUN (7-17) mg/dL Creatinine (0.52-1.04) mg/dL Estimated GFR (>60) mL/min BUN/Creatinine Ratio (6-22) Glucose (70-100) mg/dL Lactate (0.7-2.1) mmol/L Calcium (8.4-10.2) mg/dL Total Bilirubin (0.2-1.3) mg/dL AST (14-36) IU/L ALT (<35) IU/L Alkaline Phosphatase (38-126) U/L Total Protein (6.3-8.2) g/dL Albumin (3.5-5.0) g/dL Globulin (1.7-4.1) g/dL Albumin/Globulin Ratio (1.0-2.8) Procalcitonin (<0.5) ng/mL Urine Color Pinkish Urine Appearance Sl cloudy Urine pH 6.5 (4.5-8.0) Ur Specific [place] 1.010 (1.000-1.035) Urine Protein 2+ H (Negative) Urine Glucose (UA) Negative (Negative) g/dL Urine Ketones Negative (NEGATIVE) Urine Occult Blood 3+ H (Negative) Urine Nitrate Negative (Negative) Urine Bilirubin Negative (NEGATIVE) Urine Urobilinogen 0.2 (0.2) E.U./dL Ur Leukocyte Esterase 2+ H (NEGATIVE) Urine RBC >100/hpf H (0-5/HPF) Urine WBC 30-100/hpf H (0-5/HPF) Ur Squamous Epith Cells 10-30 /hpf H (0-5/HPF) Urine Bacteria Many (>30) H (None) Ur Culture Indicated? Specimen cultured Blood Type Antibody Screen MDM Narrative Medical decision making narrative: Patient with known DVT presenting for worsening lower extremity swelling. She is not on anticoagulation. There is a marked sized difference between the left lower extremity and the right lower extremity. The left lower extremity is cooler to touch with noticeable pallor compared to the right lower extremity. Dopplerable pulses are obtainable bilaterally. Received a call from Radiology stating that the previous DVT has become more extensive in his now occlusive, which would correlate to patient's physical exam. I discussed patient's case with Interventional Radiology at [facility] Dr. Marroquin, who agreed that based on description of patient's symptoms as well as finding on ultrasound patient would be a thrombectomy candidate. Unfortunately [facility] has no open beds and patient was placed on a holding list. In the interim patient will be started on heparin bolus and drip. Patient and informed of diagnosis and plan, they are amenable to staying for transfer. Dr. Esparza-patient signed out to me by Dr. Swann I have seen evaluated patient myself. 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 It appears that she was discharged on home oxygen February 05. However there were mixed reports of possibly worsening shortness of breath. She continues to be tachycardic in the ED she is currently on 3 L of O2. She is accepted to [facility] waiting for bed placement. Left lower extremity is swollen decreased pulse. She is not been on anticoagulation due to anemia. During her admission she was given blood transfusion. She is currently on heparin drip. Hemoglobin today 9.8 hematocrit 29.2 previously 8.7 and 25.5 respectively. 11:[address] Raymundo Interventional Radiology at [facility] who states that patient is not a candidate due to advanced cancer and recommends anticoagulation only 11:30-Dr. Martinez hospitalist updated on patient's symptoms and test results state that patient would benefit from going to [facility] and he spoke with Dr. Chen patient's oncologist who agreed 11:50 Oncology at [facility] updated patient's symptoms test results states that they agree patient is probably not a candidate for thrombectomy due to advanced cancer stage would likely forearm another clot. 13:15 Dr Cunningham IR at [facility] recommends anticoagulation 1st before thrombectomy. Dr. Martinez again updated on recommendations. He called over to [facility]. Dr Aguirre: Received turned over. Review patient's history and physical and workup. Patient has been persistently tachycardic and does have a heart rate in the 120s when she is exerting herself such as getting up to use the restroom. She is now therapeutic on her heparin. Repeat CBC and chemistry showed no acute changes. She will need repeat antibiotics today. Attempted to contact [facility] overnight however there still is no bed availability. I do feel that transfer to [facility] is best for the patient is this is where her oncologist is located and also where specialist such as Interventional Radiology who stated that there is potentially intervention that can be done. Will turn the patient back over to Dr. Esparza to continue to observe and disposition. Critical Care Time <Lulu Esparza, DO - Last Filed: 02/24/23 13:10> Critical Care Time Critical Care Time: Yes Total Critical Care Time: 40 Attestation: The high probability of a clinically significant, sudden or life threatening deterioration of the [cardiovascular] system(s) required my full and direct attention, intervention and personal management. The aggregate critical care time was 40 minutes. This time is in addition to time spent performing reported procedures but includes the following: [x] Data Review and interpretation [x] Patient assessment and monitoring of vital signs [x] Documentation [x] Medication orders and management Discharge Plan Departure Patient Disposition: Admitted as Observation Clinical Impression: Rectal cancer, Hypoxemic respiratory failure, chronic, Pneumonia, UTI (urinary tract infection) DVT (deep venous thrombosis) Qualifiers: DVT location: lower extremity Affected thrombotic vein of extremity: femoral C hronicity: acute Laterality: left Qualified Code(s): I82.412 - Acute embolism and thrombosis of left femoral vein Admit Date/Time: 02/24/23 09:00 Admit Provider: Nery Molina
[2023-02-22 20:28] LABS: Add Manual Diff / Slide Review NO; Basophils Absolute Auto 0 /uL (0-100); Basophils Percent Auto 0.3 % (0-2); Eosinophils Absolute Auto 0 /uL (0-450); Eosinophils Percent Auto 0.2 % (2-4); Hematocrit 29.2 % (36-46); Hemoglobin 9.8 g/dL (12.0-16.0); Lymphocytes Absolute Auto 900 /uL (1100-4500); Lymphocytes Percent Auto 5.7 % (25-40); Mean Corpuscular HGB Conc 33.5 % (30-36); Mean Corpuscular Hemoglobin 27.9 PG (26-34); Mean Corpuscular Volume 83.3 fL (80-100); Monocytes Absolute Auto 800 /uL (0-900); Monocytes Percent Auto 5.5 % (3-14); Neutrophils Absolute Auto 13600 /uL (1500-7000); Neutrophils Percent Auto 88.3 % (50-75); Platelet Count 282 X10^3/uL (150-400); Red Blood Cell Count 3.51 X10^6/uL (4.0-5.2); Red Cell Distribution Width 15.6 % (11.6-14.8); White Blood Cell Count 15.4 X10^3/uL (4.5-11.0)
[2023-02-22 20:38] LABS: INR 1.4 (0.9-1.3); Prothrombin Time 15.7 SECONDS (9.4-12.5)
[2023-02-22 20:40] LABS: PTT Partial Thromboplastin Tim 28 SECONDS (25.1-36.5)
[2023-02-22 20:42] LABS: Alanine Aminotransferase 25 IU/L (<35); Albumin 3.3 g/dL (3.5-5.0); Alkaline Phosphatase 182 U/L (38-126); Aspartate Aminotransferase 44 IU/L (14-36); BUN Creatinine Ratio 29.2 (6-22); Bilirubin Total 0.7 mg/dL (0.2-1.3); Blood Urea Nitrogen 14 mg/dL (7-17); Calcium 9.7 mg/dL (8.4-10.2); Carbon Dioxide 26 mmol/L (22-32); Chloride 96 mmol/L (98-107); Estimated Glomerular Filt Rate > 60 mL/min (>60); Globulin 3.3 g/dL (1.7-4.1); Glucose 130 mg/dL (70-100); HEMOLYSIS < 15 (0-50); Potassium 3.6 mmol/L (3.4-5.1); Sodium 131 mmol/L (137-145); Total Protein 6.6 g/dL (6.3-8.2)
[2023-02-22] MEDS: HEPARIN 5,000 UNIT/ML VIAL 6650 UNIT IV (21:58)
[2023-02-22] MEDS: HEPARIN DRIP 25,000 UNIT/500 ML IV.SOLN 29.883 UNIT IV (22:01)
[2023-02-23] VITALS (44 sets, daily range): BP systolic 113–151; BP diastolic 57–93; PULSE 96–127; RESP 11–35; TEMP 36.4; O2SAT 85–100
[2023-02-23 05:59] LABS: PTT Partial Thromboplastin Tim 53 SECONDS (25.1-36.5)
[2023-02-23] MEDS: HEPARIN 5,000 UNIT/ML VIAL 5000 UNIT IV ×2 (06:19→19:31)
--- NOTE | 2023-02-23 07:28 | DI.CT.S_ITS ---
PROCEDURE: CT ANGIO CHEST ABDOMEN PELVIS INDICATIONS: known PE, DVT, worsening resp. status. Known rectal Cancer TECHNIQUE: Precontrast 5 mm thick sections acquired from the lung apices to the iliac crests. After the administration of intravenous contrast, 2.5 mm thick sections again acquired from the lung apices to the iliac crests. Maximum intensity projection (MIP) oblique sagittal and coronal reformats were then acquired. For radiation dose reduction, the following was used: automated exposure control. COMPARISON: [facility], CT, CT CHEST ABDOMEN PELVIS WITH CONTRAST, 01/31/2023, 15:44. [facility], CT, CT ANGIO CHEST PE PROTOCOL, 02/03/2023, 14:00. FINDINGS: Image quality: Excellent. AORTA: The thoracic and abdominal aorta demonstrates normal caliber and wall thickness. No aortic dissection or aneurysmal dilatation. No mural thrombus. There is mild atheromatous calcification within the infrarenal abdominal aorta. PULMONARY ARTERIES: Subsegmental nonocclusive pulmonary emboli are redemonstrated and appear slightly decreased in extent when compared with the study dated February 03, 2023. There is no new central pulmonary embolus. CHEST: Lungs and pleura: Innumerable pulmonary lesions are redemonstrated and appear similar in extent and size to the prior study dated February 03, 2023. There are slightly increased airspace opacities within the posterior aspect of the right middle lobe suggesting postobstructive infection. No pleural effusion or pneumothorax. Mediastinum: Heart size is normal. There is a trace low-density pericardial effusion unchanged from the prior study. There are extensive enlarged mediastinal and hilar lymph nodes, as before. Central pulmonary arteries are normal in size. Esophagus is normal in caliber. No hiatal hernias. Bones and chest wall: No axillary adenopathy by size criteria. Thyroid gland is unremarkable . No suspicious bony lesions. No vertebral body compression fractures. ABDOMEN: Vasculature: Celiac trunk and mesenteric arteries are patent. Renal arteries are also patent. Solid organs: When compared with the study dated February 03, 2023, there is likely an increased in the size and number of the innumerable hepatic metastases; however evaluation is limited given the arterial phase contrast bolus. Gallbladder is surgically absent . Biliary system is non dilated. Pancreas enhances normally. Spleen is normal in size and enhancement. No adrenal nodules. Both kidneys are normal in size and enhancement, without hydronephrosis. Peritoneum and bowel: No free fluid or air. Bowel loops are normal in caliber and wall thickness. The appendix is thin walled. A right-sided rectal mass is present which is poorly characterized on CT. This appears slightly increased in size when compared with the CT dated January 31, 2023. Additionally, the adjacent enlarged mesorectal lymph nodes have increased in size. Nodes and vessels: There are scattered enlarged retroperitoneal lymph nodes which appear increased in size when compared with the prior CT of the abdomen dated January 31, 2023. Inferior vena cava is normal in morphology. An IVC filter is noted. Miscellaneous: No ventral hernias. PELVIS: Genitourinary: Bladder wall thickness is normal. The uterus is likely surgically absent. Bilateral ovarian cysts are redemonstrated and incompletely characterized on CT. Miscellaneous: No inguinal hernias. There are enlarged iliac and inguinal nodes, as before. Bones: No suspicious bony lesions. No vertebral body compression fractures. IMPRESSION: 1. Bilateral subsegmental pulmonary emboli overall similar in extent to the prior CTA dated February 03, 2023. No new central pulmonary emboli. 2. Innumerable pulmonary metastases and extensive mediastinal adenopathy similar in extent to the prior chest CT. 3. New airspace opacities in the right middle lobe suspicious for postobstructive pneumonia. This may be the etiology of the patient's worsening respiratory status. 4. Probable increased size of the rectal mass when compared with the CT dated January 31, 2023 in addition to increased size of the mesorectal and retroperitoneal lymph nodes suggesting progression of disease. Dictated by: Eugenie French M.D. on 02/23/2023 at 9:14 Approved by: Eugenie French M.D. on 02/23/2023 at 9:30
[2023-02-23] MEDS: HYDROMORPHONE 1 MG INJ IV (08:20)
--- NOTE | 2023-02-23 08:35 | PC.NURSE ---
Pt complains of chronic low back pain which worsens when moving or coughing. Pt requests to move slowly when repositioning. She has been on oxygen the past week with flow rate increased to 3L/min NC.
--- NOTE | 2023-02-23 09:15 | PC.NURSE ---
Nurse with patient to CT. Pt layed flat in CT and required 4L NC after repositioning and moving off the ER gurney. Pt tolerated procedure and after moving back to the ER gurney she was placed on 3L NC. Patient laying in bed on left side.
[2023-02-23] MEDS: LORazepam 2 MG/ML INJ 0.5 MG IV (09:58)
--- NOTE | 2023-02-23 10:00 | PC.NURSE ---
Left dorsalis pedis pulse not palpable, it was auscultated with doppler and marked location on left foot. Right foot pulse palpable and marked.
--- NOTE | 2023-02-23 10:18 | PC.NURSE ---
Addendum entered by Betina Callejas CNA 02/24/23 08:20: 0816- contacted [facility] spoke with Markell, asked for bed update, stated they will know more once there are more discharges, will contact at 1300 for update. Addendum entered by Willa Gonsalves CNA 02/24/23 03:36: 0330 called [facility] Rochelle again for an update, there is no longer a bed until 02/24 during dayshift discharges. Addendum entered by Willa Gonsalves CNA 02/24/23 01:36: 02/23/2023 spoke with [facility] multiple times since 1999, still waiting for the doctor to call us at this time. Original Note: Hospital call list for patient transfer 02/22/[id number]- Stephanie, [facility] spoke with Raymond, patient on waitlist 2129- [facility], [facility] spoke with Rob, no waitlist, call back in morning 2136- [facility], [facility] spoke with Gladys, patient on waitlist 2209- Nika, [facility] spoke with araceli Estrada on waitlist 02/23/2023 0941- Stephanie, spoke to Niles, verified patient on waitlist, no beds at the moment 1011- [facility], called back spoke to Raul, patient on waitlist 1022- [facility], spoke to Jeovany, verified patient on waitlist, Jeovany requested the facesheet and notes be faxed again.
[2023-02-23] MEDS: MORPHINE 4 MG/ML INJ IV ×5 (10:32→21:16)
[2023-02-23] MEDS: cefTRIAXone 2,000 MG in SODIUM CHLORIDE 0.9% 100 ML 200 MG IV (10:33)
[2023-02-23 10:53] LABS: Lactate (Lactic Acid) 1.3 mmol/L (0.7-2.1)
[2023-02-23 11:11] LABS: Procalcitonin 0.29 ng/mL (<0.5)
[2023-02-23] MEDS: AZITHROMYCIN 500 MG in DEXTROSE 5% IN WATER 250 ML 250 MG IV (11:19)
--- NOTE | 2023-02-23 11:44 | PC.NURSE ---
DIRECTOR OF STRATEGIC PARTNERSHIPS note: approached pt. room to offer assistance with placing pure wick on pt., educated pt. on the benefits, functions and purposes of the purewick. Pt. seemed apprehensive on using the purewick and wanted to continue to try with the bedside commode. I emptied the basin of the bedside commode and cleaned out and returned to pt. room for next use. Encouraged pt. to use call light for whichever method pt. desired to use the bathroom, whether that was use of bedpan, bedside commode or purewick. left pt. room with call light in reach of pt. notified rn of pt. request to continue with the bedside commode at this time.
[2023-02-23 12:54] LABS: PTT Partial Thromboplastin Tim 51 SECONDS (25.1-36.5)
[2023-02-23] MEDS: HEPARIN DRIP 25,000 UNIT/500 ML IV.SOLN 36.523 UNIT IV (13:57)
--- NOTE | 2023-02-23 15:03 | PC.NURSE ---
Pt states her pain gets to be intolerable for the q2h morphine and is asking for morphine and hydrocodone as per her previous hospital admission. Provider notified.
--- NOTE | 2023-02-23 15:10 | PC.NURSE ---
@1310 Pt's left pedal pulse auscultated again with doppler to verify blood flow. Pt has no worsening leg pain stated 05/26.
[2023-02-23] MEDS: HYDROCODONE/ACET 10/325 TABLET 1 TAB PO (15:11)
[2023-02-23 18:34] LABS: PTT Partial Thromboplastin Tim 52 SECONDS (25.1-36.5)
[2023-02-23] MEDS: HYDROCODONE/ACET 10/325 TABLET 2 TAB PO (19:02)
[2023-02-23] MEDS: LORazepam 0.5 MG TABLET PO (19:31)
[2023-02-23 20:59] LABS: Add Manual Diff / Slide Review NO; Basophils Absolute Auto 100 /uL (0-100); Basophils Percent Auto 0.5 % (0-2); Eosinophils Absolute Auto 100 /uL (0-450); Eosinophils Percent Auto 0.8 % (2-4); Hematocrit 28.1 % (36-46); Hemoglobin 9.3 g/dL (12.0-16.0); Lymphocytes Absolute Auto 800 /uL (1100-4500); Lymphocytes Percent Auto 6.3 % (25-40); Mean Corpuscular HGB Conc 33.2 % (30-36); Mean Corpuscular Hemoglobin 27.8 PG (26-34); Mean Corpuscular Volume 83.7 fL (80-100); Monocytes Absolute Auto 800 /uL (0-900); Monocytes Percent Auto 6.2 % (3-14); Neutrophils Absolute Auto 11600 /uL (1500-7000); Neutrophils Percent Auto 86.2 % (50-75); Platelet Count 282 X10^3/uL (150-400); Red Blood Cell Count 3.35 X10^6/uL (4.0-5.2); Red Cell Distribution Width 15.7 % (11.6-14.8); White Blood Cell Count 13.5 X10^3/uL (4.5-11.0)
--- NOTE | 2023-02-23 21:07 | PC.NURSE ---
Transferred to inpatient bed for comfort.
[2023-02-23 21:09] LABS: Blood Urea Nitrogen 12 mg/dL (7-17); Calcium 9.2 mg/dL (8.4-10.2); Carbon Dioxide 26 mmol/L (22-32); Chloride 95 mmol/L (98-107); Estimated Glomerular Filt Rate > 60 mL/min (>60); Glucose 157 mg/dL (70-100); Sodium 129 mmol/L (137-145)
[2023-02-23 21:10] LABS: HEMOLYSIS 57 (0-50)
[2023-02-23] MEDS: MORPHINE ER 15 MG TABLET 30 MG PO (23:05)
[2023-02-24] VITALS (26 sets, daily range): BP systolic 112–141; BP diastolic 55–80; PULSE 97–127; RESP 13–42; TEMP 36.1–37.2; O2SAT 92–100; BMI 28.6
[2023-02-24] MEDS: HYDROCODONE/ACET 10/325 TABLET 1 TAB PO ×2 (01:16→07:33)
[2023-02-24 01:18] LABS: Add Manual Diff / Slide Review NO; Basophils Absolute Auto 0 /uL (0-100); Basophils Percent Auto 0.4 % (0-2); Eosinophils Absolute Auto 100 /uL (0-450); Eosinophils Percent Auto 0.9 % (2-4); Hematocrit 27.5 % (36-46); Hemoglobin 9.3 g/dL (12.0-16.0); Lymphocytes Absolute Auto 900 /uL (1100-4500); Lymphocytes Percent Auto 6.9 % (25-40); Mean Corpuscular HGB Conc 33.7 % (30-36); Mean Corpuscular Volume 83.1 fL (80-100); Monocytes Absolute Auto 700 /uL (0-900); Monocytes Percent Auto 5.9 % (3-14); Neutrophils Absolute Auto 10800 /uL (1500-7000); Neutrophils Percent Auto 85.9 % (50-75); Platelet Count 296 X10^3/uL (150-400); Red Blood Cell Count 3.31 X10^6/uL (4.0-5.2); Red Cell Distribution Width 15.4 % (11.6-14.8); White Blood Cell Count 12.6 X10^3/uL (4.5-11.0)
[2023-02-24 01:25] LABS: BUN Creatinine Ratio 20.5 (6-22); Blood Urea Nitrogen 9 mg/dL (7-17); Calcium 9.3 mg/dL (8.4-10.2); Carbon Dioxide 27 mmol/L (22-32); Chloride 96 mmol/L (98-107); Estimated Glomerular Filt Rate > 60 mL/min (>60); Glucose 134 mg/dL (70-100); HEMOLYSIS < 15 (0-50); Potassium 3.6 mmol/L (3.4-5.1); Sodium 133 mmol/L (137-145)
[2023-02-24 01:35] LABS: PTT Partial Thromboplastin Tim 79 SECONDS (25.1-36.5)
[2023-02-24] MEDS: HEPARIN DRIP 25,000 UNIT/500 ML IV.SOLN 39.843 UNIT IV (02:56)
[2023-02-24] MEDS: MORPHINE 4 MG/ML INJ IV ×5 (03:16→22:43)
[2023-02-24] MEDS: MORPHINE ER 15 MG TABLET 30 MG PO ×3 (06:06→21:07)
[2023-02-24 06:34] LABS: PTT Partial Thromboplastin Tim 62 SECONDS (25.1-36.5)
[2023-02-24] MEDS: HEPARIN 5,000 UNIT/ML VIAL 2000 UNIT IV (07:29)
[2023-02-24] MEDS: LORazepam 0.5 MG TABLET PO ×2 (07:33→11:51)
[2023-02-24] MEDS: cefTRIAXone 2,000 MG in SODIUM CHLORIDE 0.9% 100 ML 200 MG IV (07:34)
[2023-02-24] MEDS: PHENAZOPYRIDINE 100 MG TABLET 200 MG PO (07:53)
[2023-02-24 08:06] LABS: Appearance Urine UA SL CLOUDY; Bilirubin Urine UA NEGATIVE (NEGATIVE); Glucose Urine UA NEGATIVE (Negative); Ketones Urine UA NEGATIVE (NEGATIVE); Leukocyte Esterase Urine UA 2+ (NEGATIVE); Nitrite Urine UA NEGATIVE (Negative); Occult Blood Urine UA 3+ (Negative); Protein Urine UA 2+ (Negative); Urobilinogen Urine UA 0.2 E.U./dL (0.2)
[2023-02-24 08:08] LABS: pH Urine UA 6.5 (4.5-8.0)
[2023-02-24 08:09] LABS: Color Urine UA PINKISH
--- NOTE | 2023-02-24 08:13 | PC.NURSE ---
VACUUM PAN TENDER note: pt. breakfast tray provided, pt. asked for hot water for tea, warned pt. that the water in the mug was very hot and urged caution before drinking. call light within reach of pt.
[2023-02-24 08:20] LABS: Bacteria Urine Many (>30); Culture Indicated Urine Specimen Cultured; RBC Urine >100/HPF (0-5/HPF); Squamous Epithelial Cell Urine 10-30 /HPF (0-5/HPF); WBC Urine 30-100/HPF (0-5/HPF)
[2023-02-24] MEDS: AZITHROMYCIN 500 MG in DEXTROSE 5% IN WATER 250 ML 250 MG IV (08:32)
[2023-02-24] MEDS: OXYCODONE ER 10 MG TAB 30 MG PO (08:53)
[2023-02-24 13:09] LABS: PTT Partial Thromboplastin Tim 68 SECONDS (25.1-36.5)
[2023-02-24] MEDS: polyethylene glycoL 3350 17 GM POWD.PACK PO (14:52)
[2023-02-24] MEDS: OXYCODONE IR 10 MG TABLET 30 MG PO ×2 (14:53→21:08)
[2023-02-24] MEDS: SENNOSIDES 8.6 MG TABLET PO ×2 (14:53→22:32)
[2023-02-24] MEDS: LIDOCAINE 5% PATCH 1 EACH TOP (14:55)
[2023-02-24] MEDS: BACLOFEN 10 MG TABLET PO ×2 (14:56→22:32)
[2023-02-24] MEDS: HEPARIN DRIP 25,000 UNIT/500 ML IV.SOLN 41.504 UNIT IV (15:00)
[2023-02-24] MEDS: LIPASE/PROTEASE/AMYLASE 5/17/24 CAP 6 CAP PO (16:16)
--- NOTE | 2023-02-24 16:36 | PM.HP.1 ---
History of Present Illness History of Present Illness Chief complaint: left calf swollen poss blood clot Narrative: 57-year-old female with recent diagnosis of metastatic anal cancer, hypertension, and pancreatitis who was previously admitted from February 03, 2023 to February 05, 2023 with acute bilateral PEs and acute blood loss anemia. She was placed on Eliquis anticoagulation. During that hospitalization, her blood pressure medications were changed from metoprolol to losartan. She subsequently discharge with close follow-up planned with Oncology, Dr. Chen, with whom she would an appointment on February 06. She subsequently had Eliquis held due to an anticipated port placement for chemotherapy. IVC filter was subsequently placed and anticoagulation was held. On February 22, she received her 1st radiation treatment. As she was leaving that appointment, she noticed her left lower extremity was much larger than usual and felt it was very tense. She subsequently came to the emergency department for evaluation. Upon initial assessment there was concern for decreased temperature and pallor to the left lower extremity. Pulses were not palpable but were measurable by Doppler. Ultrasound showed extension of prior DVT with acute occlusion. There were plans in place for patient to pursue thrombectomy. Unfortunately, [facility] did not have any beds available for patient transfer. She was initiated on heparin drip and remained in the emergency department pending transfer. For the next couple of days, there were ongoing conversations about transfer for thrombectomy versus ongoing medical therapy due to her metastatic malignancy and propensity for likely more clot formation. Ultimately, today it was reported her leg showed significant improvement. Pulses were palpable. Emergency room physician did contact [facility] who felt the patient would no longer be a candidate for thrombectomy given overall improvement. Patient is now admitted for observation and transitioned to oral anticoagulation. She reports after discharge from here on February 05 she did follow-up with Dr. Moran. At that time, she remained on Eliquis anticoagulation. She was advised to discontinue Eliquis on the day after in anticipation of port placement on February 12. However, she noted she felt increasingly poorly over the weekend and ended up getting admitted on the . She had ongoing rectal bleeding and ultimately the decision was made for an IVC filter placement and discontinuation of anticoagulation. She has received 1 treatment of radiation thus far. It was hoped that as she pursued further radiation, her rectal bleeding might improve. She reports she has had difficulties with pain management. She is been on long-acting morphine 30 mg 4 times a day as well as hydrocodone 10/325 2 tabs every 4 hours. She feels the acetaminophen is helpful. [facility] Medical History Essential hypertension Pancreatitis Healthy adult Surgical History History of hysterectomy Family History Mother Interstitial cystitis Fibromyalgia Social History household members: spouse and children Smoking Status: Never smoker Meds Home Medications and Allergies Home Medications Medication Instructions Recorded Confirmed Type apixaban 5 mg tablet (Eliquis) See Rx Instructions .Route 02/05/23 02/24/23 Rx .COMPLEX #30 tabs losartan 50 mg tablet 50 mg PO BID #60 tabs 02/05/23 02/24/23 Rx baclofen 10 mg tablet 10 mg PO 3XD 02/24/23 02/24/23 History hydrocodone 10 mg-acetaminophen 2 tab PO Q3-4H PRN Pain, Severe 02/24/23 02/24/23 History 325 mg tablet lidocaine 4 % topical patch 1 patch topical 1XD 02/24/23 02/24/23 History (Lidocaine Pain Relief) [id number] 1 cap PO 3XD 02/24/23 02/24/23 History 36,000-114,000-180,000 unit capsule,delay rel (Creon) morphine 30 mg tablet,extended 30 mg PO QID 02/24/23 02/24/23 History release polyethylene glycol 3350 17 gram 17 g PO DAILY 02/24/23 02/24/23 History oral powder packet sennosides 8.6 mg tablet (senna) 8.6 mg PO BID constipation 02/24/23 02/24/23 History Allergies Allergy/AdvReac Type Severity Reaction Status Date / Time amoxicillin AdvReac Intermediate Diarrhea Verified 02/03/23 08:34 Sulfa (Sulfonamide AdvReac Intermediate Nausea Verified 02/03/23 08:34 Antibiotics) Review of Systems Review of Systems Narrative: All other systems were reviewed negative Exam Vital Signs (past 8 hours): - 02/24/23 09:00 02/24/23 09:07 02/24/23 09:30 Temperature Pulse Rate 111 H 110 H Respiratory Rate Blood Pressure Pulse Oximetry 95 94 Oxygen Delivery Method Nasal Cannula Nasal Cannula Oxygen Flow Rate 4 02/24/23 10:05 02/24/23 13:00 Temperature 97.0 F L Pulse Rate 120 H 117 H Respiratory Rate 19 Blood Pressure 134/67 Pulse Oximetry 92 93 Oxygen Delivery Method Oxygen Flow Rate 5 Oxygen Delivery Method Nasal Cannula Oxygen Flow Rate 5 Narrative Exam Narrative: GEN: Ill-appearing middle-aged female, Alert and oriented x3, pale, uncomfortable appearing HEENT: Normocephalic, face symmetric, pupils equal round reactive to light, extraocular movements intact, sclerae anicteric, conjunctiva pale but clear, nares patent, oropharynx reveals an intact soft and hard palate with moist mucous membranes, dentition is fair NECK: Supple, no lymphadenopathy, thyroid without enlargement or nodularity, carotids no bruits CHEST: Respiratory excursions symmetric, clear to auscultation bilaterally CV: Regular rate and rhythm, no murmurs, rubs, gallops, PMI nondisplaced ABD: Soft, nontender, nondistended, bowel sounds present in all 4 quadrants, body habitus limits exam EXTR: Warm, well perfused, no clubbing/cyanosis, left lower extremity with 3+ nonpitting edema, right lower extremity 2+ SKIN: Warm and dry, without rash, pale NEURO: Alert and oriented x3, grossly intact PSYCH: Mood and affect is within normal limits, judgment and insight are appropriate Objective Labs 02/23/23 20:40 02/23/23 20:40 Labs: Laboratory Results - last 24 hr 02/23/23 02/23/23 02/23/23 00:30 18:15 20:40 WBC 12.6 H 13.5 H RBC 3.31 L 3.35 L Hgb 9.3 L 9.3 L Hct 27.5 L 28.1 L MCV 83.1 83.7 MCH 28.0 27.8 MCHC 33.7 33.2 RDW 15.4 H 15.7 H Plt Count 296 282 Neut % (Auto) 85.9 H 86.2 H Lymph % (Auto) 6.9 L 6.3 L [place] % (Auto) 5.9 6.2 Eos % (Auto) 0.9 L 0.8 L Baso % (Auto) 0.4 0.5 Neut # (Auto) 59784 H 51218 H Lymph # (Auto) 900 L 800 L [place] # (Auto) 700 800 Eos # (Auto) 100 100 Baso # (Auto) 0 100 APTT 52 H Sodium 133 L 129 L Potassium 3.6 4.0 Chloride 96 L 95 L Carbon Dioxide 27 26 BUN 9 12 Creatinine 0.44 L 0.48 L Estimated GFR > 60 > 60 BUN/Creatinine Ratio 20.5 25.0 H Glucose 134 H 157 H Calcium 9.3 9.2 Urine Color Urine Appearance Urine pH Ur Specific [place] Urine Protein Urine Glucose (UA) Urine Ketones Urine Occult Blood Urine Nitrate Urine Bilirubin Urine Urobilinogen Ur Leukocyte Esterase Urine RBC Urine WBC Ur Squamous Epith Cells Urine Bacteria Ur Culture Indicated? 02/24/23 02/24/23 02/24/23 00:30 06:20 07:56 WBC RBC Hgb Hct MCV MCH MCHC RDW Plt Count Neut % (Auto) Lymph % (Auto) [place] % (Auto) Eos % (Auto) Baso % (Auto) Neut # (Auto) Lymph # (Auto) [place] # (Auto) Eos # (Auto) Baso # (Auto) APTT 79 H* D 62 H D Sodium Potassium Chloride Carbon Dioxide BUN Creatinine Estimated GFR BUN/Creatinine Ratio Glucose Calcium Urine Color Pinkish Urine Appearance Sl cloudy Urine pH 6.5 Ur Specific [place] 1.010 Urine Protein 2+ H Urine Glucose (UA) Negative Urine Ketones Negative Urine Occult Blood 3+ H Urine Nitrate Negative Urine Bilirubin Negative Urine Urobilinogen 0.2 Ur Leukocyte Esterase 2+ H Urine RBC >100/hpf H Urine WBC 30-100/hpf H Ur Squamous Epith Cells 10-30 /hpf H Urine Bacteria Many (>30) H Ur Culture Indicated? Specimen cultured 02/24/23 12:50 WBC RBC Hgb Hct MCV MCH MCHC RDW Plt Count Neut % (Auto) Lymph % (Auto) [place] % (Auto) Eos % (Auto) Baso % (Auto) Neut # (Auto) Lymph # (Auto) [place] # (Auto) Eos # (Auto) Baso # (Auto) APTT 68 H Sodium Potassium Chloride Carbon Dioxide BUN Creatinine Estimated GFR BUN/Creatinine Ratio Glucose Calcium Urine Color Urine Appearance Urine pH Ur Specific [place] Urine Protein Urine Glucose (UA) Urine Ketones Urine Occult Blood Urine Nitrate Urine Bilirubin Urine Urobilinogen Ur Leukocyte Esterase Urine RBC Urine WBC Ur Squamous Epith Cells Urine Bacteria Ur Culture Indicated? Assessment & Plan Assessment & Plan narrative: 1. Progression of left lower extremity DVT Patient has been on heparin drip and has had improvement in her concerning occlusive findings compared with her arrival in the emergency department on February 22. Will plan to transition to Eliquis this evening. It is reassuring that she has not had an increase in her rectal bleeding since she is been on the heparin. Certainly, transitioning to 10 mg of Eliquis twice daily could result in increased rectal bleeding, but my hope is that having received her 1st dose of radiation therapy will be somewhat protective. That said, I am concerned giving her a subtherapeutic dose could cause reocclusion of the DVT in her left leg. 2. Recent history of bilateral DVT/PE in the setting of metastatic malignancy She is status post IVC filter placement. As above we are reinitiating anticoagulation. 3. Metastatic rectal cancer CT of the chest abdomen and pelvis were performed yesterday which revealed innumerable pulmonary metastases and extensive adenopathy which was similar to the previous chest CT. Probable increased size of the rectal mass when compared to the CT dated January 31. Additionally increased size of the mesorectal and retroperitoneal lymph nodes suggesting progression of disease. 4. Postobstructive pneumonia CT revealed evidence of a right middle lobe pneumonia suspicious for postobstructive pneumonia. She is been receiving antibiotics in the emergency department. Will continue Rocephin. She is received 2/3 doses of IV azithromycin 500 mg. 5. Possible UTI Urine culture is pending. Should be covered with the ceftriaxone. Await culture results. 4. Cancer-related pain She has been on MS extended release 30 mg 4 times daily. She is also been on hydrocodone/APAP 10/325, 2 tabs every 4 hours. Given the concerns for excessive acetaminophen in the setting of liver metastases, will transition from the 20 mg of hydrocodone to 15-30 mg of oxycodone every 4 hours as needed. She finds acetaminophen ineffective and this has been ordered separately. Recommended she discuss her pain management with her palliative care team. I suspect she would get better pain management with methadone then she is presently getting with morphine and hydrocodone. 5. Leukocytosis Mild at 13.5. Possibly secondary to pneumonia or UTI. Will follow. 6. Acute blood loss anemia [place] to be secondary to her rectal cancer. Hemoglobin is improved compared with previous admission and is 9.3 today and stable. Will continue to monitor. 7. Hyponatremia Sodium was 133 yesterday. It is down somewhat to 129 today. She is not received any IV fluids, but her overall intake in the last 24 hours was 1343. Monitor her electrolytes. Code status Full Prophylaxis On heparin drip, transitioned to apixaban Disposition Possible discharge home tomorrow if her hemoglobin is stable and she does not have an increase in rectal bleeding.
[2023-02-24] MEDS: PHENAZOPYRIDINE 100 MG TABLET PO ×2 (18:11→22:32)
[2023-02-24] MEDS: ACETAMINOPHEN 325 MG TABLET 650 MG PO ×2 (18:11→23:54)
[2023-02-24] MEDS: LOSARTAN 50 MG TABLET PO (22:32)
[2023-02-24] MEDS: APIXABAN 5 MG TABLET 10 MG PO (22:32)
[2023-02-25] VITALS (7 sets, daily range): BP systolic 96–145; BP diastolic 58–77; PULSE 74–115; RESP 16–18; TEMP 36.1–36.7; O2SAT 93–98
[2023-02-25] MEDS: OXYCODONE IR 10 MG TABLET 30 MG PO ×2 (01:08→05:34)
[2023-02-25] MEDS: MORPHINE 4 MG/ML INJ IV ×2 (03:57→10:24)
[2023-02-25] MEDS: ACETAMINOPHEN 325 MG TABLET 650 MG PO ×3 (05:33→17:34)
[2023-02-25] MEDS: cefTRIAXone 1,000 MG in SODIUM CHLORIDE 0.9% 100 ML 200 MG IV (06:03)
[2023-02-25 06:25] LABS: Add Manual Diff / Slide Review NO; Basophils Absolute Auto 0 /uL (0-100); Basophils Percent Auto 0.4 % (0-2); Eosinophils Absolute Auto 100 /uL (0-450); Eosinophils Percent Auto 0.8 % (2-4); Hematocrit 27.1 % (36-46); Lymphocytes Absolute Auto 600 /uL (1100-4500); Lymphocytes Percent Auto 5.5 % (25-40); Mean Corpuscular HGB Conc 33.2 % (30-36); Mean Corpuscular Hemoglobin 27.8 PG (26-34); Mean Corpuscular Volume 83.8 fL (80-100); Monocytes Absolute Auto 700 /uL (0-900); Monocytes Percent Auto 5.8 % (3-14); Neutrophils Absolute Auto 10000 /uL (1500-7000); Neutrophils Percent Auto 87.5 % (50-75); Platelet Count 315 X10^3/uL (150-400); Red Blood Cell Count 3.23 X10^6/uL (4.0-5.2); Red Cell Distribution Width 16.1 % (11.6-14.8); White Blood Cell Count 11.4 X10^3/uL (4.5-11.0)
[2023-02-25 06:37] LABS: BUN Creatinine Ratio 17.6 (6-22); Blood Urea Nitrogen 9 mg/dL (7-17); Calcium 9.6 mg/dL (8.4-10.2); Carbon Dioxide 31 mmol/L (22-32); Chloride 96 mmol/L (98-107); Estimated Glomerular Filt Rate > 60 mL/min (>60); Glucose 129 mg/dL (70-100); HEMOLYSIS < 15 (0-50); Potassium 4.1 mmol/L (3.4-5.1); Sodium 133 mmol/L (137-145)
--- NOTE | 2023-02-25 06:57 | PC.NURSE ---
lieutenant shift supervisor: Patient is AxOx4, VSS, tachycardic in the 110's-120's during exertion, O2 sats 98% on 2L NC. Pain medications given consistently as ordered for pain in the rectum, low back, and chest while coughing. Patient states that pain medication regimen is effective. LLE has 1+ pitting edema, appears pale, pedal pulse palpable, complaints of leg feeling tight. Patient is ambulatory w/ 1 PA to the bathroom. assists patient with hygiene & ambulation. Educated patient/spouse to call when getting OOB.
[2023-02-25] MEDS: AZITHROMYCIN 500 MG in DEXTROSE 5% IN WATER 250 ML 250 MG IV (08:04)
[2023-02-25] MEDS: LIPASE/PROTEASE/AMYLASE 5/17/24 CAP 6 CAP PO ×3 (08:05→17:34)
[2023-02-25] MEDS: MORPHINE ER 15 MG TABLET 30 MG PO (08:57)
[2023-02-25] MEDS: LOSARTAN 50 MG TABLET PO ×2 (08:59→21:12)
[2023-02-25] MEDS: PHENAZOPYRIDINE 100 MG TABLET PO (08:59)
[2023-02-25] MEDS: SENNOSIDES 8.6 MG TABLET PO ×2 (09:01→21:10)
[2023-02-25] MEDS: BACLOFEN 10 MG TABLET PO ×3 (09:08→21:10)
[2023-02-25] MEDS: APIXABAN 5 MG TABLET 10 MG PO ×2 (09:08→21:10)
[2023-02-25] MEDS: LIDOCAINE 5% PATCH 1 EACH TOP (09:12)
[2023-02-25] MEDS: BENZONATATE 100 MG CAPSULE PO (11:49)
[2023-02-25] MEDS: OXYCODONE IR 10 MG TABLET 20 MG PO ×3 (12:52→21:11)
[2023-02-25] MEDS: GUAIFENESIN/DM 200/20 MG/10 ML UDC PO ×2 (13:45→21:07)
--- NOTE | 2023-02-25 14:33 | PT-IP ANOTE ---
Pt seen twice today, in am and pm for PT evaluation, however refuses oob due to pain and discomfort. States she has been getting up to commode every hour with 's help. Will see for initial PT evaluation tomorrow.
[2023-02-25] MEDS: PHENAZOPYRIDINE 100 MG TABLET 200 MG PO ×2 (15:22→21:11)
[2023-02-25] MEDS: METHADONE INTENSOL 10 MG/ML ORAL.CONC 8 MG PO ×2 (15:24→21:47)
--- NOTE | 2023-02-25 16:36 | P.PN_ITS ---
Subjective Subjective Interval history: Patient not having increased rectal bleeding. Still having a hacking cough. Also has been in alot of pain. She would like her pain medications addressed. I called and spoke with her palliative care physician who recommended switching and methadone and increasing po oxy PRN. Exam Vital Signs (past 8 hours): - 02/25/23 08:59 02/25/23 11:30 Temperature 97.0 F L Pulse Rate 106 H 115 H Respiratory Rate 18 Blood Pressure 121/66 96/58 L Pulse Oximetry 93 Oxygen Flow Rate 0 Oxygen Delivery Method Nasal Cannula Oxygen Flow Rate 0 Narrative Exam Narrative: GEN: Ill-appearing middle-aged female, Alert and oriented x3, pale, uncomfortable appearing HEENT: Normocephalic, face symmetric, pupils equal round reactive to light, extraocular movements intact, sclerae anicteric, conjunctiva pale but clear, nares patent, oropharynx reveals an intact soft and hard palate with moist mucous membranes, dentition is fair NECK: Supple, no lymphadenopathy, thyroid without enlargement or nodularity, carotids no bruits CHEST: Respiratory excursions symmetric, clear to auscultation bilaterally CV: Regular rate and rhythm, no murmurs, rubs, gallops, PMI nondisplaced ABD: Soft, nontender, nondistended, bowel sounds present in all 4 quadrants, body habitus limits exam EXTR: Warm, well perfused, no clubbing/cyanosis, left lower calf swollen and taught but not erythematous, palpable but dimished L pedal pulse SKIN: Warm and dry, without rash, pale NEURO: Alert and oriented x3, grossly intact PSYCH: Mood and affect is within normal limits, judgment and insight are appropriate Objective Labs 02/25/23 05:40 02/25/23 05:40 Labs: Laboratory Results - last 24 hr 02/25/23 05:40 WBC 11.4 H RBC 3.23 L Hgb 9.0 L Hct 27.1 L MCV 83.8 MCH 27.8 MCHC 33.2 RDW 16.1 H Plt Count 315 Neut % (Auto) 87.5 H Lymph % (Auto) 5.5 L [place] % (Auto) 5.8 Eos % (Auto) 0.8 L Baso % (Auto) 0.4 Neut # (Auto) 97183 H Lymph # (Auto) 600 L [place] # (Auto) 700 Eos # (Auto) 100 Baso # (Auto) 0 Sodium 133 L Potassium 4.1 Chloride 96 L Carbon Dioxide 31 BUN 9 Creatinine 0.51 L Estimated GFR > 60 BUN/Creatinine Ratio 17.6 Glucose 129 H Calcium 9.6 PFSH Medical History Essential hypertension Pancreatitis Healthy adult Surgical History History of hysterectomy Family History Mother Interstitial cystitis Fibromyalgia Social History household members: spouse and children Smoking Status: Never smoker Assessment & Plan Assessment & Plan narrative: 1. Progression of left lower extremity DVT Initially on heparin drip and transitioned to eliquis 10mg BID. Tolerating well so far. Left calf with swelling but no evidence of vascular compromise. 2. Recent history of bilateral DVT/PE in the setting of metastatic malignancy She is status post IVC filter placement. As above we are reinitiating anticoagulation. 3. Metastatic rectal cancer CT of the chest abdomen and pelvis were performed yesterday which revealed innumerable pulmonary metastases and extensive adenopathy which was similar to the previous chest CT. Probable increased size of the rectal mass when compared to the CT dated January 31. Additionally increased size of the mesorectal and retroperitoneal lymph nodes suggesting progression of disease. She is scheduled to resume radiation treatment on 02/26. 4. Postobstructive pneumonia CT revealed evidence of a right middle lobe pneumonia suspicious for postobstructive pneumonia. She is been receiving antibiotics in the emergency department. Will continue Rocephin and azithromycin 500 mg. 5. Possible UTI Urine culture with 3+ colony and normal francisco j however also with squamous cells. Receiving rocephin. Continue pyridium 200mg TID. 4. Cancer-related pain Initially on morphine ER, oxycodone and IV morphine. [place] still not well- controlled. Spoke with Dr. Maximiliano solano who is following patient in clinic. We calculated she has received 240 MEDD over 24 hours. She recommended switching morphine po to methadone 8mg TID, scheduled tyenol, increased oxy to 20mg q4h and keep IV morphine 4mg q2h PRN for now until methadone takes more effect. Monitor for opiate toxicity. 5. Leukocytosis Mild at 13.5. Possibly secondary to pneumonia or UTI. Downtrending. 6. Acute blood loss anemia [place] to be secondary to her rectal cancer. Hemoglobin is improved compared with previous admission and is in 9's and stable. Will continue to monitor. 7. Hyponatremia Mildly low in 130's. Monitor. Code status Full Prophylaxis Eliquis Disposition Possible discharge home 02/26 if pain is controlled.
--- NOTE | 2023-02-25 17:20 | CM.DANOTE ---
Brief DCP Assessment Note Patient is a 57yo F here with UTI/pneumonia/resp failure/rectal cancer. PCP Edwin Gay Payer [place] and self pay PSYCHIATRY INSTRUCTOR reviewed EMR. Per provider, attempting to better control pain, and then dc her for OP radiation appt Sunday. Per PT, request a walker for home use. PSYCHIATRY INSTRUCTOR placed verbal readback order for walker. Per chart review, supportive spouse at home to assist her with dc needs. PSYCHIATRY INSTRUCTOR unable to meet with pt today due to triaging needs. Per RN/provider, likely no needs from CM team. Plan: home with spouse/dc to chemo appt Sunday morning. Transport likely with spouse. No CM needs identified at this time. CM team will follow as needed. TINO Degroot Discharge Planning/Care Management Advanced directive, confirm from FAMILY Start: 02/24/23 11:11 Freq: Q24H Status: Active Protocol: Document 02/24/23 11:11 MW (Rec: 02/24/23 13:25 MW [id number]) Advance Directive, confirm on record Time 13:00 Person contacted Dileep Hawthorne, states no advance directive exists Copy received No Document 02/25/23 11:11 LW (Rec: 02/25/23 12:57 LW [id number]) Advance Directive, confirm on record Time 13:00 Person contacted Dileep Hawthorne, [facility] no advance directive exists Copy received No Time 12:56 Person contacted no advance directives Copy received No CM Discharge Assessment Start: 02/25/23 17:18 Freq: Status: Active Protocol: Document 02/25/23 17:18 SL (Rec: 02/25/23 17:20 SL [id number]) Discharge Planning Assessment Assigned Criminal Investigator TINO Chow DPOA/Assigned Designee Name Gigi Hawthorne Contact Information [phone] Advance Directives? No Advance Directives on File No History Provided By Medical Record Prior Living Arrangements House Comment 2 boys at home Household Members spouse,children Comment Has supportive spouse. Discharge Plan Home Transportation Arrangement Spouse Referrals Initiated None needed Whiteboard Updated in Patient Room with No name and ext. # of Criminal Investigator Review Status In Process Next Review Type Continued Stay Review
[2023-02-26] VITALS (8 sets, daily range): BP systolic 103–144; BP diastolic 60–68; PULSE 86–120; RESP 16–18; TEMP 36.2–37.1; O2SAT 91–94
[2023-02-26] MEDS: MORPHINE 4 MG/ML INJ IV ×4 (04:59→14:57)
[2023-02-26] MEDS: ACETAMINOPHEN 325 MG TABLET 650 MG PO (04:59)
[2023-02-26] MEDS: GUAIFENESIN/DM 200/20 MG/10 ML UDC PO ×4 (05:00→18:20)
[2023-02-26] MEDS: METHADONE INTENSOL 10 MG/ML ORAL.CONC 8 MG PO ×3 (09:11→21:11)
[2023-02-26] MEDS: LIPASE/PROTEASE/AMYLASE 5/17/24 CAP 6 CAP PO ×3 (09:11→18:17)
[2023-02-26] MEDS: LIDOCAINE 5% PATCH 1 EACH TOP (09:12)
[2023-02-26] MEDS: BACLOFEN 10 MG TABLET PO ×3 (10:01→21:08)
[2023-02-26] MEDS: PHENAZOPYRIDINE 100 MG TABLET 200 MG PO ×3 (10:01→21:08)
[2023-02-26] MEDS: LOSARTAN 50 MG TABLET PO (10:01)
[2023-02-26] MEDS: APIXABAN 5 MG TABLET 10 MG PO ×2 (10:01→21:09)
[2023-02-26] MEDS: SENNOSIDES 8.6 MG TABLET PO (10:02)
[2023-02-26] MEDS: OXYCODONE IR 10 MG TABLET 20 MG PO (10:02)
[2023-02-26 10:06] LABS: Add Manual Diff / Slide Review NO; Basophils Absolute Auto 0 /uL (0-100); Basophils Percent Auto 0.3 % (0-2); Eosinophils Absolute Auto 0 /uL (0-450); Eosinophils Percent Auto 0.1 % (2-4); Hematocrit 28.5 % (36-46); Hemoglobin 9.3 g/dL (12.0-16.0); Lymphocytes Absolute Auto 800 /uL (1100-4500); Lymphocytes Percent Auto 5.2 % (25-40); Mean Corpuscular HGB Conc 32.5 % (30-36); Mean Corpuscular Hemoglobin 27.6 PG (26-34); Mean Corpuscular Volume 84.7 fL (80-100); Monocytes Absolute Auto 900 /uL (0-900); Monocytes Percent Auto 5.8 % (3-14); Neutrophils Absolute Auto 13500 /uL (1500-7000); Neutrophils Percent Auto 88.6 % (50-75); Platelet Count 330 X10^3/uL (150-400); Red Blood Cell Count 3.36 X10^6/uL (4.0-5.2); White Blood Cell Count 15.2 X10^3/uL (4.5-11.0)
--- NOTE | 2023-02-26 10:20 | DI.RAD.S_ITS ---
PROCEDURE: XR CHEST 1V INDICATIONS: leukocytosis, cough TECHNIQUE: One view of the chest was acquired. COMPARISON: [facility], CR, XR CHEST 1V, 02/03/2023, 8:41. FINDINGS: Surgical changes and devices: Left-sided port catheter, tip of which is in the mid SVC. Lungs and pleura: Increased, moderate multifocal patchy airspace opacity bilaterally. No pleural effusions or pneumothorax. Mediastinum: Mediastinal contours appear normal. Heart size is normal. Bones and chest wall: No suspicious bony lesions. Overlying soft tissues appear unremarkable. IMPRESSION: Increased bilateral pneumonia. Dictated by: Quinn Grullon M.D. on 02/26/2023 at 10:56 Approved by: Quinn Grullon M.D. on 02/26/2023 at 10:57
[2023-02-26 10:21] LABS: BUN Creatinine Ratio 19.6 (6-22); Blood Urea Nitrogen 11 mg/dL (7-17); Calcium 9.8 mg/dL (8.4-10.2); Carbon Dioxide 29 mmol/L (22-32); Chloride 97 mmol/L (98-107); Estimated Glomerular Filt Rate > 60 mL/min (>60); Glucose 157 mg/dL (70-100); HEMOLYSIS < 15 (0-50); Potassium 3.9 mmol/L (3.4-5.1); Sodium 135 mmol/L (137-145)
--- NOTE | 2023-02-26 10:21 | CM.DPC ---
DCP Discharge Home Per MD, anticipate pt likely stable for discharge home today and awaiting final labs to confirm and attempting to get pt discharged in time for her scheduled radiation appointment with Oncology at 1430 today. Per PT, recommending home with spouse assist and FWW. SW met bedside with pt, spouse, and PT and they confirm they are agreeable with d/c home today to make it to radiation and appreciative to have FWW issued prior to d/c and then spouse confirms he will go to [facility] tomorrow Tues to get bedside commode and w/c for future needs at home. FWW order placed and PT working on issuing walker and sizing it to patient. Plan: Patient to d/c home today via spouse POV if medically stable and DME provided and resources for [facility] and no further SW needs at this time. Evi Shah, FLIPPING MACHINE OPERATOR
--- NOTE | 2023-02-26 11:08 | PT.IIE ---
Surgical History (Last Reviewed 02/23/23 @ 05:59 by Jagruti Swann MD) History of hysterectomy Medical History (Last Reviewed 02/03/23 @ 11:43 by Opal New MD) Essential hypertension Healthy adult Pancreatitis Physical Therapy Inpatient Evaluation/Re-Eval M1 PT/OT-IP Prior Functional Status Start: 02/26/23 08:38 Freq: NEEDED Status: Active Protocol: Document 02/26/23 09:11 MB (Rec: 02/26/23 11:08 [id number]) Medical Review Prior Functional Status Medical History Reviewed Yes Diet/Fluid Consistency Regular Communication WNLs Mobility and Gait Assistance from as needed in the home over the past two weeks. Pt was mostly in the bed. They do not have any ADs. Activities of Daily Living and IADL's Assistance from who works and who has been taking off, grown children also in the home. reports recent 2 week decline. Social History Household Members spouse,children Living Arrangements House Number of Floors (Floors) One Floor Number of Stairs To Enter/Railing? 1 step to enter Home Environment Standard Height Toilet,Tub/ Shower Doors Employment Status Unemployed M2 PT-IP Current Condition Start: 02/26/23 08:38 Freq: NEEDED Status: Active Protocol: Document 02/26/23 09:11 MB (Rec: 02/26/23 11:08 [id number]) Physical Therapy Current Condition Current Condition Evaluation Date 02/26/23 Treatment Diagnosis LLE DVT in setting of metastatic rectal CA and history of PE, IVF M3 PT-IP Subjective Start: 02/26/23 08:38 Freq: NEEDED Status: Active Protocol: Document 02/26/23 09:11 MB (Rec: 02/26/23 11:08 [id number]) Subjective Physical Therapy Visit Type Type Initial Evaluation Visit Start Time 09:11 Visit Stop Time 10:02 Total Visit Minutes 51 Number of CHANGE MANAGEMENT LEAD Visits 0 Physical Therapy Visit Comments Patient Comments Pt c/o continuous back and LLE pain and reports she has basically been bed-bound recently Patient Goals To go home Therapy Pain Assessment Pain When Pain Assessed At Rest Pain Present Pain Present Pain Reported Location Rectum Intensity 6 Description Sharp Pain Behaviors Guarding Pain Management Techniques Modification of Treatment,Re- positioning,Timing of Activity with Medications lower back Intensity 6 Description Sharp,With Movement Pain Behaviors Guarding Pain Management Techniques Re-positioning,Timing of Activity with Medications M4 PT-IP Mobility and Gait Start: 02/26/23 08:38 Freq: NEEDED Status: Active Protocol: Document 02/26/23 09:11 MB (Rec: 02/26/23 11:08 MB [id number]) PT-Bed Mobility Assessment Sit to Supine Sit to Supine Standby Assistance,1 Person Assistance PT-Transfer Assessment Sit to and From Stand Sit to and from Stand Standby Assistance,1 Person Assistance,Use of Upper Extremities Equipment Transfer Assistive Device Gait Belt,Front Wheeled Walker Orthotic/Prosthetic Devices or Brace: No Transfers Transfer Destination Toilet Transfer Technique Ambulation Transfer Ability Level of Assist Contact Guard Assistance,1 Person Assistance,Use of Upper Extremities Gait Assessment Gait Gait Assistance Required: Contact Guard Assist,1 Person Assist Distance (Feet) 40 Able to Maintain Weight Bearing Status Yes During Gait Assistive Devices Assistive Device Gait Belt,Front Wheeled Walker Orthotic/Prosthetic Devices or Brace: No Gait Deviations General Gait Pattern Antalgic,Decreased Stride Length,Step-to Gait Factors Limiting Gait Function Factors Limiting Gait Function Decreased Activity Tolerance, Pain,Poor Balance Comments Gait Comments Pt has increased pain with all mobility and is very attentive. Ed pt and in benefits of RW, step-to gait pattern for forward and retropulsion gait and obtained walker after treatment for use at home. Ed pt and in benefits of him going to [facility] and w/c when it is open tomorrow. Stair Climbing Assessment Evaluation Level of Assist On Stairs Minimal Assistance,1 Person Assistance Devices Stair Climbing Assistive Devices Front Wheel Walker Technique/Endurance Stair Climbing Direction Ascend and Descend Stair Climbing Technique Step to Step Number of Steps Climbed 1 Query Text: Stair Climbing Set # Repetitions (reps) 1 Comments Stair Climbing Comments Approach platform step forward with walker, raise walker first and then right foot and then left foot and reverse for descend. nearby for training. PT-Balance Assessment Sitting Balance and Reactions Static Sitting Balance Ability Fair Dynamic Sitting Balance Ability Fair Standing Balance and Reactions Static Standing Balance Ability Fair Dynamic Standing Balance Ability Fair Device Used RW M5 PT-IP Objective Assessments Start: 02/26/23 08:38 Freq: NEEDED Status: Active Protocol: Document 02/26/23 09:11 MB (Rec: 02/26/23 11:08 MB [id number]) Orientation Orientation/Cognition Level of Alertness Alert Orientation Name,Age,Birthday,Month,Date, Year,Day of Week,Place, Situation Language Function Ability No Deficits Noted Safety Awareness Understands Safety Issues Memory Description No Deficits Noted Gross Range of Motion Upper Extremity ROM Assessment Within Functional Limits Lower Extremity ROM Assessment Within Functional Limits Strength Comments Strength Comments MMT deferred in setting of high pain, DVT and metastatic cancer M6 PT-IP Treatment Start: 02/26/23 08:38 Freq: NEEDED Status: Active Protocol: Document 02/26/23 09:11 MB (Rec: 02/26/23 11:08 [id number]) Physical Therapy Treatment Education Education Provided Safety Equipment Issued Equipment Type and Company RW issued and paperwork filled out including order and Face Sheet M7 PT-IP Assessment and Plan Start: 02/26/23 08:38 Freq: NEEDED Status: Active Protocol: Document 02/26/23 09:11 MB (Rec: 02/26/23 11:08 [id number]) PT Summary Assessment and Plan Potential Rehabilitation Potential Poor Status of Condition at Evaluation Unstable Summary Impairments Pain,Balance,Bed Mobility, Transfers,Gait,Activity Tolerance Progress Towards Goals Slow Progress due to Pain,Slow Progress due to Medical Issues,Slow Progress due to Activity Tolerance,Safe For Discharge Assessment Summary Pt is a 57 y/o female presenting with RLE DVT in setting of metastatic rectal CA and history of PE and IVF placement. Her LLE is edematous and painful and she has severe back pain as well. Her is supportive and they are receptive to PT suggestions and assistive device training and they are appreciative of the RW training. Pt gait trains several short distances and up to 40' with RW and CGA using step-to pattern. was very concerned about their three steps to enter and pt remembers the garage has only one step up and so performed stair training with the one step. Pt is d/cing today and so RW issued and will [facility] for possible BSC and w/c. Frequency of Treatment Frequency Of Treatment Discharge Weight Bearing Status Weight Bearing Status Weight Bear as Tolerated Recommendations To Nursing Amount of Assist Needed 1 Person Assist Discharge Recommendations PT Discharge Recommendations Home with / Assist Available Transportation Needs at Discharge Private Vehicle
[2023-02-26] MEDS: PIPERACILLIN/TAZO 4.5 GM in SODIUM CHLORIDE 0.9% 100 ML IV (11:55)
[2023-02-26 13:09] LABS: MRSA (Nasal) PCR Not Detected (Not Detect)
[2023-02-26] MEDS: VANCOMYCIN 1,250 MG/250 ML PIGGYBACK 250 MG IV (13:22)
[2023-02-26] MEDS: LORazepam 0.5 MG TABLET PO (13:23)
[2023-02-26] MEDS: OXYCODONE IR 10 MG TABLET PO (14:58)
--- NOTE | 2023-02-26 15:12 | P.PN_ITS ---
Subjective Subjective Interval history: Patient still having ongoing cough. WBC uptrending to 15 today. CXR showed bilateral pneumonia. Started rocephin/azithro. Spoke with her palliative doctor who adjusted her oxy down to 10mg PRN as it was making her too sleepy with the methadone. Exam Vital Signs (past 8 hours): - 02/26/23 07:21 02/26/23 09:45 02/26/23 10:01 Temperature 97.2 F L Pulse Rate 113 H Respiratory Rate 18 Blood Pressure 114/65 142/60 H Pulse Oximetry 94 91 Oxygen Delivery Method Nasal Cannula Oxygen Flow Rate 3 3 Fraction of Inspired Oxygen 32 Fraction of Inspired Oxygen 32 SaO2/FiO2 Ratio 293 Oxygen Delivery Method Nasal Cannula Oxygen Flow Rate 3 Narrative Exam Narrative: GEN: Ill-appearing middle-aged female, Alert and oriented x3, pale, uncomfortable appearing HEENT: Normocephalic, face symmetric, pupils equal round reactive to light, extraocular movements intact, sclerae anicteric, conjunctiva pale but clear, nares patent, oropharynx reveals an intact soft and hard palate with moist mucous membranes, dentition is fair NECK: Supple, no lymphadenopathy, thyroid without enlargement or nodularity, carotids no bruits CHEST: Respiratory excursions symmetric, clear to auscultation bilaterally CV: Regular rate and rhythm, no murmurs, rubs, gallops, PMI nondisplaced ABD: Soft, nontender, nondistended, bowel sounds present in all 4 quadrants, body habitus limits exam EXTR: Warm, well perfused, no clubbing/cyanosis, left lower calf swollen and taught but not erythematous, palpable but dimished L pedal pulse SKIN: Warm and dry, without rash, pale NEURO: Alert and oriented x3, grossly intact PSYCH: Mood and affect is within normal limits, judgment and insight are appropriate Objective Labs 02/26/23 09:50 02/26/23 09:50 Labs: Laboratory Results - last 24 hr 02/26/23 02/26/23 09:50 11:06 WBC 15.2 H RBC 3.36 L Hgb 9.3 L Hct 28.5 L MCV 84.7 MCH 27.6 MCHC 32.5 RDW 16.0 H Plt Count 330 Neut % (Auto) 88.6 H Lymph % (Auto) 5.2 L [place] % (Auto) 5.8 Eos % (Auto) 0.1 L Baso % (Auto) 0.3 Neut # (Auto) 14137 H Lymph # (Auto) 800 L [place] # (Auto) 900 Eos # (Auto) 0 Baso # (Auto) 0 Sodium 135 L Potassium 3.9 Chloride 97 L Carbon Dioxide 29 BUN 11 Creatinine 0.56 Estimated GFR > 60 BUN/Creatinine Ratio 19.6 Glucose 157 H Calcium 9.8 Procalcitonin 0.30 Nasal Screen MRSA (PCR) Not detected [facility] Medical History Essential hypertension Pancreatitis Healthy adult Surgical History History of hysterectomy Family History Mother Interstitial cystitis Fibromyalgia Social History household members: spouse and children Smoking Status: Never smoker Assessment & Plan Assessment & Plan narrative: 1. Progression of left lower extremity DVT Initially on heparin drip and transitioned to eliquis 10mg BID. Tolerating well so far. Left calf with swelling but no evidence of vascular compromise. 2. Recent history of bilateral DVT/PE in the setting of metastatic malignancy She is status post IVC filter placement. As above we are reinitiating anticoagulation. 3. Metastatic rectal cancer CT of the chest abdomen and pelvis were performed yesterday which revealed innumerable pulmonary metastases and extensive adenopathy which was similar to the previous chest CT. Probable increased size of the rectal mass when compared to the CT dated January 31. Additionally increased size of the mesorectal and retroperitoneal lymph nodes suggesting progression of disease. She is scheduled to resume radiation treatment on 02/26 but this was missed. Rectal bleeding continues but Hgb stable. 4. Postobstructive pneumonia CT revealed evidence of a right middle lobe pneumonia suspicious for postobstructive pneumonia. She is been receiving antibiotics in the emergency department. Finished course of rocephin and azithro but WBC still rising and ongoing cough. Ordered zosyn and vanc for HAP coverage given her recent hospitalization at [facility]. 5. Possible UTI Urine culture with 3+ colony and normal francisco j however also with squamous cells. Finished course of rocephin. Continue pyridium 200mg TID. 4. Cancer-related pain Initially on morphine ER, oxycodone and IV morphine. [place] still not well- controlled. Spoke with Dr. Maximiliano solano who is following patient in clinic. We calculated she has received 240 MEDD over 24 hours. She recommended switching morphine po to methadone 8mg TID, scheduled tyenol, increased oxy to 20mg q4h and keep IV morphine 4mg q2h PRN for now until methadone takes more effect. Monitor for opiate toxicity. -patient too sleepy on methadone plus oxy 20 so this was lowered to 10mg q4h PRN 5. Leukocytosis Mild at 13.5. Now uptrending to 15. Possibly secondary to pneumonia or UTI. 6. Acute blood loss anemia [place] to be secondary to her rectal cancer. Hemoglobin is improved compared with previous admission and is in 9's and stable. Will continue to monitor. 7. Hyponatremia Mildly low in 130's. Monitor. Code status Full Prophylaxis Eliquis Disposition 2 more day likely.
[2023-02-26] MEDS: CEFDINIR 300 MG CAPSULE PO (21:09)
[2023-02-27] VITALS: BP 157/86; PULSE 129; RESP 24; TEMP 36.3; O2SAT 85
[2023-02-27] MEDS: OXYCODONE IR 10 MG TABLET PO ×4 (00:05→13:43)
[2023-02-27] MEDS: GUAIFENESIN/DM 200/20 MG/10 ML UDC PO ×4 (00:05→13:40)
[2023-02-27 00:22] VITALS: O2SAT 92
--- NOTE | 2023-02-27 00:37 | PC.NURSE ---
Pt has an IV ro left upper arm that is leaking, per patient's she has a port-a-cath that was place 2 weeks ago but never access. Brinda RN tried to access it and notice that there was a scab. Plan is to have one of the oncology nurses in the am reassess pt's port. is aware of the plan.
[2023-02-27] MEDS: BENZONATATE 100 MG CAPSULE PO (02:54)
[2023-02-27] MEDS: LORazepam 0.5 MG TABLET PO ×2 (02:54→13:41)
[2023-02-27 04:00] VITALS: BP 119/57; PULSE 115; RESP 16; TEMP 36.6; O2SAT 92
[2023-02-27] MEDS: ACETAMINOPHEN 325 MG TABLET 650 MG PO ×2 (05:05→12:21)
[2023-02-27 07:16] VITALS: PULSE 109; O2SAT 94
[2023-02-27 08:00] VITALS: BP 129/72; PULSE 108; RESP 19; TEMP 36.2; O2SAT 91
[2023-02-27] MEDS: BACLOFEN 10 MG TABLET PO (08:26)
[2023-02-27] MEDS: CEFDINIR 300 MG CAPSULE PO (08:26)
[2023-02-27] MEDS: APIXABAN 5 MG TABLET 10 MG PO (08:26)
[2023-02-27] MEDS: SENNOSIDES 8.6 MG TABLET PO (08:26)
[2023-02-27] MEDS: PHENAZOPYRIDINE 100 MG TABLET 200 MG PO (08:26)
[2023-02-27 08:27] VITALS: BP 129/72; PULSE 108
[2023-02-27] MEDS: LIPASE/PROTEASE/AMYLASE 5/17/24 CAP 6 CAP PO ×2 (08:27→12:21)
[2023-02-27] MEDS: LOSARTAN 50 MG TABLET PO (08:27)
[2023-02-27] MEDS: LIDOCAINE 5% PATCH 1 EACH TOP (08:31)
[2023-02-27] MEDS: MORPHINE 4 MG/ML INJ IV ×2 (08:32→12:46)
[2023-02-27 09:06] LABS: Add Manual Diff / Slide Review NO; Basophils Absolute Auto 100 /uL (0-100); Basophils Percent Auto 0.4 % (0-2); Eosinophils Absolute Auto 100 /uL (0-450); Eosinophils Percent Auto 0.6 % (2-4); Hematocrit 25.1 % (36-46); Hemoglobin 8.3 g/dL (12.0-16.0); Lymphocytes Absolute Auto 800 /uL (1100-4500); Lymphocytes Percent Auto 6.4 % (25-40); Mean Corpuscular HGB Conc 33.2 % (30-36); Mean Corpuscular Hemoglobin 28.1 PG (26-34); Mean Corpuscular Volume 84.8 fL (80-100); Monocytes Absolute Auto 700 /uL (0-900); Monocytes Percent Auto 5.5 % (3-14); Neutrophils Absolute Auto 10700 /uL (1500-7000); Neutrophils Percent Auto 87.1 % (50-75); Platelet Count 304 X10^3/uL (150-400); Red Blood Cell Count 2.96 X10^6/uL (4.0-5.2); White Blood Cell Count 12.3 X10^3/uL (4.5-11.0)
[2023-02-27 09:38] LABS: BUN Creatinine Ratio 24.1 (6-22); Blood Urea Nitrogen 14 mg/dL (7-17); Calcium 9.9 mg/dL (8.4-10.2); Carbon Dioxide 30 mmol/L (22-32); Chloride 96 mmol/L (98-107); Estimated Glomerular Filt Rate > 60 mL/min (>60); Glucose 126 mg/dL (70-100); HEMOLYSIS < 15 (0-50); Sodium 133 mmol/L (137-145)
[2023-02-27] MEDS: METHADONE INTENSOL 10 MG/ML ORAL.CONC 8 MG PO (09:46)
[2023-02-27 09:54] LABS: Procalcitonin 0.28 ng/mL (<0.5)
--- NOTE | 2023-02-27 11:16 | CM.DPC ---
DCP Cont. Reviewed EMR and team rounds for status updates. Pt will d/c today with her 's support in order to attend her rescheduled OP radiation appt. later this afternoon. Dr. Martinez is contacting Dr. Chen, her Oncologist, re: cont. concerns that her hematocrit has dropped again in the last 24-hours. No further DCP needs identified at this time.
--- NOTE | 2023-02-27 11:42 | PM.DS.1 ---
History of Present Illness History of Present Illness Chief complaint: left calf swollen poss blood clot Narrative: 57-year-old female with recent diagnosis of metastatic anal cancer, hypertension, and pancreatitis who was previously admitted from February 03, 2023 to February 05, 2023 with acute bilateral PEs and acute blood loss anemia. She was placed on Eliquis anticoagulation. During that hospitalization, her blood pressure medications were changed from metoprolol to losartan. She subsequently discharge with close follow-up planned with Oncology, Dr. Chen, with whom she would an appointment on February 06. She subsequently had Eliquis held due to an anticipated port placement for chemotherapy. IVC filter was subsequently placed and anticoagulation was held. On February 22, she received her 1st radiation treatment. As she was leaving that appointment, she noticed her left lower extremity was much larger than usual and felt it was very tense. She subsequently came to the emergency department for evaluation. Upon initial assessment there was concern for decreased temperature and pallor to the left lower extremity. Pulses were not palpable but were measurable by Doppler. Ultrasound showed extension of prior DVT with acute occlusion. There were plans in place for patient to pursue thrombectomy. Unfortunately, [facility] did not have any beds available for patient transfer. She was initiated on heparin drip and remained in the emergency department pending transfer. For the next couple of days, there were ongoing conversations about transfer for thrombectomy versus ongoing medical therapy due to her metastatic malignancy and propensity for likely more clot formation. Ultimately, today it was reported her leg showed significant improvement. Pulses were palpable. Emergency room physician did contact [facility] who felt the patient would no longer be a candidate for thrombectomy given overall improvement. Patient is now admitted for observation and transitioned to oral anticoagulation. She reports after discharge from here on February 05 she did follow-up with Dr. Moran. At that time, she remained on Eliquis anticoagulation. She was advised to discontinue Eliquis on the day after in anticipation of port placement on February 12. However, she noted she felt increasingly poorly over the weekend and ended up getting admitted on the . She had ongoing rectal bleeding and ultimately the decision was made for an IVC filter placement and discontinuation of anticoagulation. She has received 1 treatment of radiation thus far. It was hoped that as she pursued further radiation, her rectal bleeding might improve. She reports she has had difficulties with pain management. She is been on long-acting morphine 30 mg 4 times a day as well as hydrocodone 10/325 2 tabs every 4 hours. She feels the acetaminophen is helpful. Discharge Providers Provider Date of admission: 02/26/23 14:50 Discharge Date: 02/27/23 Primary care physician: Edwin Gay MD Consults: 02/24/23 18:09 Consult to Discharge Planning Routine Comment: Consult to Occupational Therapy Evaluate & Treat Comment: Physician Instructions: Evaluate and treat Consult to Physical Therapy Evaluate & Treat Comment: Physician Instructions: Evaluate and Treat 02/25/23 11:16 Consult to Physical Therapy Evaluate & Treat Comment: Physician Instructions: walker for home use 02/26/23 10:19 Consult to Home Health Routine Comment: Rectal CA, UTI, pneumonia, respiratory failure Reason For Exam: Set up FWW for home use for discharge Discharge provider: Chao Martinez DO Summary Hospital Course Discharge Diagnosis: 1. Progression of left lower extremity DVT Initially on heparin drip and transitioned to eliquis 10mg BID. Tolerating well so far. Left calf with swelling but no evidence of vascular compromise. 2. Recent history of bilateral DVT/PE in the setting of metastatic malignancy She is status post IVC filter placement. As above we are reinitiating anticoagulation. 3. Metastatic rectal cancer CT of the chest abdomen and pelvis were performed yesterday which revealed innumerable pulmonary metastases and extensive adenopathy which was similar to the previous chest CT. Probable increased size of the rectal mass when compared to the CT dated January 31. Additionally increased size of the mesorectal and retroperitoneal lymph nodes suggesting progression of disease. She is scheduled to resume radiation treatment on 02/26 but this was missed. Rectal bleeding continues but Hgb stable. 4. Postobstructive pneumonia CT revealed evidence of a right middle lobe pneumonia suspicious for postobstructive pneumonia. She is been receiving antibiotics in the emergency department. Finished course of rocephin and azithro. WBC still up to 15 so added 1 more week of po cefdinir. 5. UTI ruled out Urine culture with 3+ colony and normal francisco j however also with squamous cells. Finished course of rocephin. Having burning in bladder which is more likely radiation-induced. 4. Cancer-related pain Initially on morphine ER, oxycodone and IV morphine. [place] still not well-controlled. Spoke with Dr. Viera palliative who is following patient in clinic. We calculated she has received 240 MEDD over 24 hours. She recommended switching morphine po to methadone 8mg TID, scheduled tyenol, increased oxy to 20mg q4h and keep IV morphine 4mg q2h PRN for now until methadone takes more effect. Monitor for opiate toxicity. -patient too sleepy on methadone plus oxy 20 so this was lowered to 10mg q4h PRN 5. Leukocytosis Mild at 13.5. Now uptrending to 15. Possibly secondary to pneumonia or UTI. Improved to 12 on discharge. 6. Acute blood loss anemia [place] to be secondary to her rectal cancer. Hemoglobin is improved compared with previous admission and is in 9's and stable. Will continue to monitor. 7. Hyponatremia Mildly low in 130's. Monitor. Hospital Course: Admitted for swollen L calf and found to have almost occlusive L DVT. Initially tried transferring for IR thrombectomy, but hospitals were too full. Admitted for anticoag, initially on heparin drip and then to eliquis. Had no significant increase in rectal bleeding on the eliquis. Had a persistent cough, WBC up to 15 and CXR read as bilateral pneumonia so started on IV abx then transitioned to po cefidir. Gave guaifenasin/dextromethorphan for her cough which helped. Coordinated with Dr. Viera palliative about her increased pain needs and Dr. Viera had us switch her to methadone with oxy PRN. She tolerated it and will see Dr. Viera in clinic to keep working on her pain. Dr. Chen her oncologist alerted about her hospitalization and will see her in clinic soon to start chemo. She will restart radiation at [facility] this afternoon after discharge. Exam Vital Signs (past 8 hours): - 02/27/23 04:00 02/27/23 07:16 02/27/23 08:00 Temperature 97.8 F 97.2 F L Pulse Rate 115 H 109 H 108 H Respiratory Rate 16 19 Blood Pressure 119/57 L 129/72 Pulse Oximetry 92 94 91 Oxygen Delivery Method Nasal Cannula Oxygen Flow Rate 3 3 3 Fraction of Inspired Oxygen 32 02/27/23 08:27 Temperature Pulse Rate 108 H Respiratory Rate Blood Pressure 129/72 Pulse Oximetry Oxygen Delivery Method Oxygen Flow Rate Fraction of Inspired Oxygen Fraction of Inspired Oxygen 32 SaO2/FiO2 Ratio 293 Oxygen Delivery Method Nasal Cannula Oxygen Flow Rate 3 Narrative Exam Narrative: GEN: Ill-appearing middle-aged female, Alert and oriented x3, pale, uncomfortable appearing HEENT: Normocephalic, face symmetric, pupils equal round reactive to light, extraocular movements intact, sclerae anicteric, conjunctiva pale but clear, nares patent, oropharynx reveals an intact soft and hard palate with moist mucous membranes, dentition is fair NECK: Supple, no lymphadenopathy, thyroid without enlargement or nodularity, carotids no bruits CHEST: Respiratory excursions symmetric, clear to auscultation bilaterally CV: Regular rate and rhythm, no murmurs, rubs, gallops, PMI nondisplaced ABD: Soft, nontender, nondistended, bowel sounds present in all 4 quadrants, body habitus limits exam EXTR: Warm, well perfused, no clubbing/cyanosis, left lower calf swollen and taught but not erythematous, palpable but dimished L pedal pulse SKIN: Warm and dry, without rash, pale NEURO: Alert and oriented x3, grossly intact PSYCH: Mood and affect is within normal limits, judgment and insight are appropriate Objective Labs 02/27/23 08:51 02/27/23 08:51 Labs: Laboratory Results - last 24 hr 02/26/23 02/26/23 02/27/23 09:50 11:06 08:51 WBC 12.3 H RBC 2.96 L Hgb 8.3 L Hct 25.1 L MCV 84.8 MCH 28.1 MCHC 33.2 RDW 16.0 H Plt Count 304 Neut % (Auto) 87.1 H Lymph % (Auto) 6.4 L [place] % (Auto) 5.5 Eos % (Auto) 0.6 L Baso % (Auto) 0.4 Neut # (Auto) 08490 H Lymph # (Auto) 800 L [place] # (Auto) 700 Eos # (Auto) 100 Baso # (Auto) 100 Sodium 133 L Potassium 4.0 Chloride 96 L Carbon Dioxide 30 BUN 14 Creatinine 0.58 Estimated GFR > 60 BUN/Creatinine Ratio 24.1 H Glucose 126 H Calcium 9.9 Procalcitonin 0.30 0.28 Nasal Screen MRSA (PCR) Not detected PFSH Medical History Essential hypertension Pancreatitis Healthy adult Surgical History History of hysterectomy Family History Mother Interstitial cystitis Fibromyalgia Social History household members: spouse and children Smoking Status: Never smoker Discharge Plan Discharge Plan Patient Disposition: Home Provider Discharge Comment: You were found to have a clot in your left leg and will now be back on eliquis. I've also given you an antibiotic to take for 5 more days for a possible pneumonia. Dr. Viera is working on your pain meds with methadone and oxycodone. I've sent cough syrup for your cough. Dr. Chen will setup a appt to see you for chemo to start as well. Discharge orders & Medications Prescriptions: New Eliquis 5 mg Tablet See Rx Instructions .ROUTE .COMPLEX Qty: 30 0RF Rx Instructions: take 2 tabs (10mg) twice daily for 4 days then take 1 tab (5mg) twice daily indefinitely dextromethorphan-guaifenesin [Robafen DM Cough] 10-100 mg/5 mL Liquid 10 ml PO Q4H PRN (Reason: Cough) Qty: 800 0RF cefdinir 300 mg Capsule 300 mg PO BID 5 Days Qty: 10 0RF Continued losartan 50 mg Tablet 50 mg PO BID Qty: 60 0RF sennosides [senna] 8.6 mg tablet 8.6 mg PO BID lidocaine [Lidocaine Pain Relief] 4 % adhesive patch,medicated 1 patch topical 1XD polyethylene glycol 3350 17 gram powder in packet 17 g PO DAILY baclofen 10 mg tablet 10 mg PO 3XD Creon 36,000-114,000- 180,000 unit capsule,delayed release(DR/EC) 1 cap PO 3XD hydrocodone-acetaminophen 10-325 mg tablet 2 tab PO Q3-4H PRN (Reason: Pain, Severe) Rx Instructions: Oncologist suggested taking this dose Q3 hours alternating with the Morphine Discontinued Eliquis 5 mg tablet See Rx Instructions .ROUTE .COMPLEX Qty: 30 0RF Rx Instructions: take 10mg (2 tabs) twice daily for 4 days then lower to 5mg (1 tab) twice daily Discontinued prior to last procedure in January morphine 30 mg tablet extended release 30 mg PO QID Rx Instructions: Dose increased by oncologist, recommended alternating with Oxycodone Follow up/Referrals: Edwin Gay MD [Primary Care Provider] - Visit Report/Discharge Packet Stand Alone Forms: Patient Portal/API, Stroke Signs & Symptoms Discharge Data Primary Care Provider: Edwin Gay
--- NOTE | 2023-02-27 14:23 | PC.NURSE ---
Pt is dressed and ready for discharge home with Spouse Dileep. IV has been removed. Went over d/c instructions with Pt and Spouse-discussed d/c meds, time of last dose, reviewed stroke education, no driving while on narcotics and follow up tomorrow with MD. Pt and Spouse denied further questions and was taken out via w/c by RN to POV with Spouse and all belongings. Pt has radiation appointment at 1430 at [facility]
== END 2023-02-27 14:26 | disposition home or self-care (01) | DRG 299 ==
LOC: ED 02-24 09:00 → AC 02-24 09:01
PROVIDERS: Emergency Medicine; Student in an Organized Health Care Education/Training Program; Admitting Provider Family Medicine; Emergency Provider Emergency Medicine; Family Provider Registered Nurse; PCP Internal Medicine; Referring Provider Emergency Medicine; Visit Provider Family Medicine
DX: I82.412 Acute embolism and thrombosis of left femoral vein (principal); J18.9 Pneumonia, unspecified organism; C20 Malignant neoplasm of rectum; C79.9 Secondary malignant neoplasm of unspecified site; N39.0 Urinary tract infection, site not specified; D62 Acute posthemorrhagic anemia; E87.1 Hypo-osmolality and hyponatremia; I82.432 Acute embolism and thrombosis of left popliteal vein; G89.3 Neoplasm related pain (acute) (chronic); I10 Essential (primary) hypertension; Z86.718 Personal history of other venous thrombosis and embolism; Z86.711 Personal history of pulmonary embolism
CPT/HCPCS: 36415; 71045; 71275; 74174; 80048; 80053; 81001; 83605; 84145; 85025; 85610; 85730; 86850; 86900; 86901; 87040; 87086; 87797; 93971; 94760; 96365; 96366; 96368; 96375; 96376; 97116; 97161; 97535; 99285; 99291; G0378; A9270; J0696; J1170; J1644; J2060; J2270; J2543; Q9967